=== PATIENT | female | born 1940 | race African-American/Black ===

== ENCOUNTER 2017-04-13 11:17 | Inpatient (IN) | payer MEDICARE, MEDICAID ==
[~2017-04-13] VITALS: Ht 167.6 cm; Wt 77.1 kg
[~2017-04-13 11:17] MED LIST: AMLODIPINE BESY10 MG ORAL; ASPIRIN81 MG ORAL; ATORVASTATIN CA40 MG ORAL; CATAPRES0.1 MG ORAL; COLACE250 MG ORAL; CRANBERRY500 MG PO; DITROPAN10 MG ORAL; FIBER STAT PO; FORTAMET500 MG PO; HYDROCHLOROTH12.5 M2 ORAL; HYDROCHLOROTHIA25 MG ORAL; HYDROCODON-ACE1 EAC4; IBUPROFEN600 MG ORAL; KLONOPIN0.5 MG ORAL; LACTULOSE10 GM/153 PO; LEVEMIR100 UNIT/1 SUBQ; LEXAPRO5 MG/5 ML ORAL; LISINOPRIL20 MG ORAL; LITHIUM CARBON300 M3 PO; MILK OF MA400 MG/51 ORAL; MIRALAX17 G2 ORAL; NITROFURANTOIN100 M2 ORAL; NOVOLOG100 UNIT/3 SUBQ; NOVOLOG100 UNIT/5; PERCOCET 5-3251 EACH ORAL; RISPERDAL2 MG ORAL; SUPER GINSENG1 EACH PO; TYLENOL650 MG/20. ORAL; ULTRAM50 MG ORAL; VITAMIN C500 M1 ORAL; VITAMIN D1000 UNI1 ORAL; [UNRECOGNIZED DRUG - OTHER] MISC
[2017-04-13] MEDS ORDERED: LORAZEPAM2 MG/1 M4 ORAL (11:28)
[2017-04-13 11:30] VITALS: BP 127/62
[2017-04-13] MEDS ORDERED: DUONEB 0.5-3(2.53 ML HHN (11:40)
[2017-04-13] MEDS ORDERED: DULCOLAX10 MG RC ×2 (11:40→16:12)
[2017-04-13] MEDS ORDERED: CLONIDINE0.1 MG GT (11:40)
[2017-04-13] MEDS ORDERED: LACTULOSE10 GM/153 PO (11:40)
[2017-04-13] MEDS ORDERED: FLEET ENEMA133 M1 RC (11:40)
[2017-04-13] MEDS ORDERED: CRANBERRY500 M4 PO (11:40)
[2017-04-13 12:16] LABS: BASOPHILS % (AUTO) 1.4 % (0.0-2.0); EOSINOPHILS % (AUTO) 2.6 % (0.0-3.0); LYMPHOCYTES % (AUTO) 25.5 % (20.0-45.0); MEAN CORPUSCULAR HEMOGLOBIN 24.9 PG (27.0-31.0); MEAN CORPUSCULAR HGB CONC 30.1 G/DL (32.0-36.0); MEAN CORPUSCULAR VOLUME 83 FL (80-99); MEAN PLATELET VOLUME 7.2 FL (6.5-10.1); MONOCYTES % (AUTO) 8.6 % (1.0-10.0); NEUTROPHILS % (AUTO) 61.9 % (45.0-75.0); PLATELET COUNT 232 K/UL (150-450); RED BLOOD COUNT 4.95 M/UL (4.20-5.40); RED CELL DISTRIBUTION WIDTH 14.9 % (11.6-14.8); WHITE BLOOD COUNT 6.9 K/UL (4.8-10.8)
[2017-04-13 12:22] LABS: INR 0.9 (0.9-1.1); PROTHROMBIN TIME 9.3 SEC (9.30-11.50)
[2017-04-13] MEDS ORDERED: Enoxaparin 80mg Inj SUBQ ONE (13:30)
[2017-04-13 14:11] VITALS: BP 156/66
[2017-04-13 14:37] LABS: TROPONIN I < 0.30 ng/mL (<=0.30)
[2017-04-13 14:42] LABS: ALANINE AMINOTRANSFERASE 15 U/L (3-33); ANION GAP 12 (5-15); ASPARTATE AMINO TRANSFERASE 14 U/L (5-40); CALCIUM 9.6 mg/dL (8.6-10.2); CARBON DIOXIDE 24 mEQ/L (20-30); CHLORIDE 98 mEQ/L (98-107); CREATININE 1.2 mg/dL (0.5-0.9); HEMOLYSIS 12; POTASSIUM 5.5 mEQ/L (3.4-4.9); SODIUM 134 mEQ/L (135-145)
[2017-04-13 14:52] LABS: CKMB 2.2 ng/mL (< 3.8)
--- NOTE | 2017-04-13 14:58 | Emergency Room Report ---
History of Present Illness General Chief Complaint: Abnormal Labs Source: Patient Present Illness HPI 68-year-old female presents ED complaining of left leg pain. Patient is coming from [facility]. Notes pain for the last 2 days with swelling of the left leg. Patient had ultrasound done yesterday which showed DVT. Patient is here for further evaluation. Patient notes pain, 5/10, sharp, nonradiating to the left leg. Denies chest pain or shortness of breath. Denies fevers or chills. No other aggravating relieving factors. Denies any other associated symptoms Allergies: Coded Allergies: PENICILLINS (Verified Allergy, Intermediate, Itching, 06/25/12) PROPOXYPHENE HCL (Verified Allergy, Intermediate, Itching, 06/25/12) TETRACYCLINE (Verified Allergy, Intermediate, Itching, 06/25/12) PROPOXYPHENE (Verified Allergy, Unknown, 06/25/12) HYDROCODONE (Verified Adverse Reaction, Intermediate, GI UPSET, 05/05/16) SULFA (SULFONAMIDE ANTIBIOTICS) (Verified Adverse Reaction, Intermediate, GI UPSET, 05/05/16) Patient History Past Medical History: HTN, CVA/TIA, dementia, psych hx Social History: Denies: alcohol use, drug use, smoking Now: No Immunizations: UTD Reviewed Nursing Documentation: PMH: Agreed, PSxH: Agreed Nursing Documentation-PMH Hx Cardiac Problems: Yes Hx Hypertension: Yes Hx Diabetes: Yes Hx Cancer: No Hx Gastrointestinal Problems: No History Of Psychiatric Problem: Yes - BIPOLAR Hx Neurological Problems: Yes Hx Cerebrovascular Accident: Yes Hx Dementia: Yes 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 Hx Memory Loss: Yes - short term Hx Speech Problem: No Hx Dysphasia: Yes Hx Weakness: Yes Review of Systems All Other Systems: negative except mentioned in HPI Physical Exam Vital Signs Date Time Temp Pulse Resp B/P Pulse Ox O2 Delivery O2 Flow Rate FiO2 04/13/17 11:15 98.1 76 20 127/62 98 Room Air Sp02 EP Interpretation: reviewed, normal General Appearance: no apparent distress, alert, GCS 15, non-toxic Head: normocephalic, atraumatic Eyes: bilateral eye PERRL, bilateral eye normal inspection ENT: hearing grossly normal, normal pharynx, no angioedema, normal voice Neck: full range of motion, supple/symm/no masses Respiratory: chest non-tender, lungs clear, normal breath sounds, speaking full sentences Cardiovascular #1: regular rate, rhythm, no edema Cardiovascular #2: 2+ carotid (R), 2+ carotid (L), 2+ radial (R), 2+ radial (L) , 2+ dorsalis pedis (R), 2+ dorsalis pedis (L) Gastrointestinal: normal bowel sounds, non tender, soft, non-distended, no guarding, no rebound Rectal: deferred Genitourinary: normal inspection, no CVA tenderness Musculoskeletal: back normal, gait/station normal, normal range of motion, non- tender, calf tenderness - left Neurologic: alert, oriented x3, responsive, motor strength/tone normal, sensory intact, speech normal Psychiatric: judgement/insight normal, memory normal, mood/affect normal, no suicidal/homicidal ideation Reflexes: 3+ bicep (R), 3+ bicep (L), 3+ tricep (R), 3+ tricep (L), 3+ knee (R) , 3+ knee (L) Skin: normal color, no rash, warm/dry, well hydrated Lymphatic: no adenopathy Medical Decision Making Diagnostic Impression: Primary Impression: DVT (deep venous thrombosis) Qualified Codes: I82.492 - Acute embolism and thrombosis of other specified deep vein of left lower extremity Additional Impression: Hyperkalemia, diminished renal excretion ER Course Hospital Course 76-year-old female presents ED with left leg pain and swelling. Differential diagnoses include: DVT, cellulitis, contusion, abscess Clinical course Patient placed on stretcher after initial history and physical I ordered labs, DVT ultrasound. Labs reviewed- K 5.5, Cr 1.2, hemoglobin/hematocrit stable, trop negative Ultrasound shows LLE DVT EKG- NSR, no acute changes interpreted by me given kayexlate. Patient given Lovenox in ED. patient admitted to Dr Balaji Lopez. I feel this is a highly complex case requiring extensive working including EKG/Rhythm strip, Xray/CT/US, Blood/urine lab work, repeat exams while in ED, and administration of strong opiates/narcotics for pain control, admission to hospital or close patient follow up. Diagnosis - DVT, hyperkalemia, patient admitted to floor in serious conditon Labs Test 04/13/17 11:56 04/13/17 13:43 White Blood Count 6.9 K/UL (4.8-10.8) Red Blood Count 4.95 M/UL (4.20-5.40) Hemoglobin 12.3 G/DL (12.0-16.0) Hematocrit 40.9 % (37.0-47.0) Mean Corpuscular Volume 83 FL (80-99) Mean Corpuscular Hemoglobin 24.9 PG (27.0-31.0) Mean Corpuscular Hemoglobin Concent 30.1 G/DL (32.0-36.0) Red Cell Distribution Width 14.9 % (11.6-14.8) Platelet Count 232 K/UL (150-450) Mean Platelet Volume 7.2 FL (6.5-10.1) Neutrophils (%) (Auto) 61.9 % (45.0-75.0) Lymphocytes (%) (Auto) 25.5 % (20.0-45.0) Monocytes (%) (Auto) 8.6 % (1.0-10.0) Eosinophils (%) (Auto) 2.6 % (0.0-3.0) Basophils (%) (Auto) 1.4 % (0.0-2.0) Prothrombin Time 9.3 SEC (9.30-11.50) Prothromb Time International Ratio 0.9 (0.9-1.1) Activated Partial Thromboplast Time 22 SEC (23-33) Sodium Level 134 mEQ/L (135-145) Potassium Level 5.5 mEQ/L (3.4-4.9) Chloride Level 98 mEQ/L (98-107) Carbon Dioxide Level 24 mEQ/L (20-30) Anion Gap 12 (5-15) Blood Urea Nitrogen 18 mg/dL (7-23) Creatinine 1.2 mg/dL (0.5-0.9) Estimat Glomerular Filtration Rate mL/min (>60) Glucose Level 73 mg/dL (74-106) Calcium Level 9.6 mg/dL (8.6-10.2) Total Bilirubin 0.2 mg/dL (0.0-1.2) Aspartate Amino Transf (AST/SGOT) 14 U/L (5-40) Alanine Aminotransferase (ALT/SGPT) 15 U/L (3-33) Alkaline Phosphatase 108 U/L (35-104) Total Creatine Kinase 154 U/L (26-140) Troponin I < 0.30 ng/mL (<=0.30) Total Protein 8.0 g/dL (6.6-8.7) Albumin 4.0 g/dL (3.5-5.2) Globulin 4.0 g/dL Albumin/Globulin Ratio 1.0 (1.0-2.7) EKG Diagnostic Results Rate: normal Rhythm: NSR ST Segments: no acute changes ASA given to the pt in ED: No Rhythm Strip Diag. Results EP Interpretation: yes Rhythm: NSR, no PVC's, no ectopy Last Vital Signs Date Time Temp Pulse Resp B/P Pulse Ox O2 Delivery O2 Flow Rate FiO2 04/13/17 14:11 98.1 98 18 156/66 98 Room Air Status: improved Disposition: ADMITTED INPATIENT Condition: Serious Referrals: NON PHYSICIAN (PCP) PATRICIA CRONIN M.D. Apr 13, 2017 14:58
[2017-04-13] MEDS ORDERED: Sodium Polystyrene Sulfonate 15gm Powder ORAL ONE (15:15)
[2017-04-13 16:08] VITALS: BP 162/84
[2017-04-13] MEDS ORDERED: ATORVASTATIN CA20 MG ORAL (16:10)
[2017-04-13] MEDS ORDERED: DOCUSATE SODIU100 M2 ORAL (16:12)
[2017-04-13] MEDS ORDERED: RISPERIDONE3 MG ORAL (16:18)
[2017-04-13] MEDS ORDERED: ZINC SULFATE220 M2 ORAL (16:18)
[2017-04-13] MEDS ORDERED: FAMOTIDINE20 MG ORAL (16:18)
[2017-04-13] MEDS ORDERED: TRADJENTA5 MG PO (16:18)
[2017-04-13] MEDS ORDERED: MELATONIN 3 MG1 EACH ORAL (16:18)
[2017-04-13] MEDS ORDERED: PROZAC40 MG ORAL (16:18)
[2017-04-13] MEDS ORDERED: LORazepam 1mg tab ORAL PRN (17:00)
[2017-04-13] MEDS ORDERED: Acetaminophen 650mg/20.3ml ORAL PRN (17:00)
[2017-04-13] MEDS ORDERED: DuoNeb 0.5-3(2.5)mg/3ml neb HHN PRN (17:00)
[2017-04-13] MEDS ORDERED: Fleet's Enema 133ml RECTAL PRN ×2 (17:00→17:26)
[2017-04-13] MEDS: Docusate 100mg cap ORAL SCH (18:00)
[2017-04-13 20:00] VITALS: BP 137/68
[2017-04-13] MEDS ORDERED: Milk of Magnesia 30ml Ud ORAL PRN (21:00)
[2017-04-13] MEDS: Atorvastatin 20mg tab ORAL SCH (21:17)
[2017-04-13] MEDS: NovoLOG Insulin Flexpen SUBQ SCH (21:21)
[2017-04-14] VITALS: BP 125/65
[2017-04-14] MEDS ORDERED: Heparin 25,000u/D5W 500ml (VTE/AF) IV SCH (01:00)
[2017-04-14] MEDS ORDERED: Heparin 5000 units/ml inj IV ONE ×2 (01:00→02:00)
[2017-04-14] MEDS: Heparin 25,000u/D5W 500ml (VTE/AF) IV SCH ×3 (02:01→22:54)
[2017-04-14 04:00] VITALS: BP 123/67
[2017-04-14] MEDS: NovoLOG Insulin Flexpen SUBQ SCH ×4 (06:18→20:32)
[2017-04-14 08:10] VITALS: BP 123/71
[2017-04-14] MEDS: Lisinopril 20mg tab ORAL SCH (09:29)
[2017-04-14] MEDS: Ascorbic Acid 500mg tab ORAL SCH (09:29)
[2017-04-14] MEDS: metFORMIN 500mg tab ORAL SCH ×2 (09:29→17:04)
[2017-04-14] MEDS: Aspirin Baby 81mg ORAL SCH (09:29)
[2017-04-14] MEDS: Lactulose 20gm/30ml UDC ORAL SCH (09:29)
[2017-04-14] MEDS: Docusate 100mg cap ORAL SCH ×2 (09:29→17:04)
[2017-04-14] MEDS: Zinc Sulfate 220mg cap ORAL SCH (09:29)
[2017-04-14 11:55] VITALS: BP 125/60
--- NOTE | 2017-04-14 14:31 | History and Physical Report ---
DATE OF ADMISSION: 04/13/2017 REASON FOR ADMISSION: Acute DVT. HISTORY OF PRESENT ILLNESS: This is a 76-year-old female who resides at a retirement facility. She is debilitated as a result of a prior stroke. She noted pain and swelling of her left leg for several days. She was brought to the emergency room where a venous duplex scan confirmed an acute DVT. The patient denies any history of trauma. She at best mobilizes minimally from bed to wheelchair. She does not walk. PAST MEDICAL HISTORY: Hypertension, cerebrovascular accident, bipolar disorder, type 2 diabetes mellitus, and history of MRSA of the sputum. MEDICATIONS: Prior to admission, reviewed and reconciled. ALLERGIES: Penicillin, tetracycline, sulfa, propoxyphene, and hydrocodone. SOCIAL HISTORY: Negative for smoking, alcohol, or substance abuse. FAMILY HISTORY: Noncontributory. REVIEW OF SYSTEMS: No fevers or chills. No prior history of DVT. No history of bleeding diathesis or hypercoagulable state. She has had a prior stroke. She does have hypertension. She had an echocardiogram last year that revealed normal ejection fraction. There is no history of asthma. Her diabetes is managed with oral therapy. There is no known history of thyroid disorder. She denies any known history of melena, bright red blood per rectum, or GI bleeding. She does have chronic kidney disease. PHYSICAL EXAMINATION: GENERAL: A well developed, well nourished, in no distress. VITAL SIGNS: Blood pressure 127/62, pulse 76, respirations 20, and temperature afebrile. HEENT: Conjunctivae pink. Sclerae anicteric. Oropharynx clear. Mucous membranes moist. NECK: Supple. Jugular venous pressure normal. Carotid upstrokes without delay. BREAST: Breast exam performed. No signs of masses or adenopathy. LUNGS: Clear. CARDIAC: Regular rhythm and rate. Normal S1 and S2 with a fourth heart sound. ABDOMEN: Soft and nontender. EXTREMITIES: Tense tight left calf, painful to touch. Distal pulses palpable. NEUROLOGIC: With left greater than right weakness. LABORATORY AND DIAGNOSTIC DATA: Laboratories reviewed. IMPRESSION: 1. Acute deep venous thrombosis of left lower extremity. 2. Hyperkalemia. 3. Mild hyponatremia. 4. Mild hypovolemia. 5. Dehydration. 6. Hypertensive heart disease. 7. Cerebrovascular disease. 8. Type 2 diabetes mellitus. PLAN: 1. Initiate full anticoagulation with IV heparin. 2. Check stool studies. 3. Reassess risk benefit ratio of full anticoagulation versus IVC filter placement long-term. 4. Hydrate with saline. 5. Recheck potassium. 6. Further recommendations will follow. Flako Carpio M.D. DR: Christiana JOB#: [id number] CC:
[2017-04-14 16:58] VITALS: BP 144/74
[2017-04-14 20:00] VITALS: BP 108/71
--- NOTE | 2017-04-14 20:15 | Progress Note ---
DATE: 04/14/2017 INTERNAL MEDICINE PROGRESS NOTE SUBJECTIVE: The patient without distress. Continues to have some pain and tightness in her left calf. No shortness of breath. She remains on heparin drip with the PTT twice in control as a goal. No signs of bleeding noted. Stool occult blood test is pending. OBJECTIVE: VITAL SIGNS: Blood pressure 125/60, pulse 80, respiration 16, afebrile. HEENT: Oropharynx clear. NECK: Supple. LUNGS: Clear. CARDIAC: Regular rhythm and rate. Normal S1, S2 with a fourth heart sound. ABDOMEN: Soft, nontender. EXTREMITIES: With 1 to 2+ edema on the left and tightness of the calf. IMPRESSION: 1. Acute deep venous thrombosis at the left lower extremity and mobility due to cerebrovascular disease. 2. Hypertensive heart disease. 3. Hyponatremia. 4. Hypovolemia. 5. Hyperkalemia. 6. Type 2 diabetes mellitus. PLAN: Continue full anticoagulation. Await stool occult blood test. Continue isotonic IV fluids. Recheck chemistry panel. We will initiate oral anticoagulation once stool studies available. Flako Carpio M.D. DR: MAYI JOB#: [id number] CC:
[2017-04-14] MEDS: Atorvastatin 20mg tab ORAL SCH (20:52)
[2017-04-15] VITALS (7 sets, daily range): BP systolic 125–154; BP diastolic 44–76
[2017-04-15] MEDS: NovoLOG Insulin Flexpen SUBQ SCH ×4 (06:41→20:38)
[2017-04-15 07:31] LABS: BASOPHILS % (AUTO) 0.6 % (0.0-2.0); EOSINOPHILS % (AUTO) 5.2 % (0.0-3.0); LYMPHOCYTES % (AUTO) 31.6 % (20.0-45.0); MEAN CORPUSCULAR HEMOGLOBIN 25.4 PG (27.0-31.0); MEAN CORPUSCULAR HGB CONC 30.9 G/DL (32.0-36.0); MEAN CORPUSCULAR VOLUME 82 FL (80-99); MEAN PLATELET VOLUME 7.6 FL (6.5-10.1); NEUTROPHILS % (AUTO) 52.6 % (45.0-75.0); PLATELET COUNT 204 K/UL (150-450); RED BLOOD COUNT 4.08 M/UL (4.20-5.40); RED CELL DISTRIBUTION WIDTH 15.2 % (11.6-14.8); WHITE BLOOD COUNT 8.1 K/UL (4.8-10.8)
[2017-04-15 08:33] LABS: ALANINE AMINOTRANSFERASE 12 U/L (3-33); ALBUMIN/GLOBULIN RATIO 0.9 (1.0-2.7); ANION GAP 11 (5-15); ASPARTATE AMINO TRANSFERASE 12 U/L (5-40); CALCIUM 8.7 mg/dL (8.6-10.2); CARBON DIOXIDE 24 mEQ/L (20-30); CHLORIDE 104 mEQ/L (98-107); CREATININE 1.1 mg/dL (0.5-0.9); HEMOLYSIS 4; POTASSIUM 4.6 mEQ/L (3.4-4.9); SODIUM 139 mEQ/L (135-145); TOTAL PROTEIN 6.7 g/dL (6.6-8.7)
[2017-04-15] MEDS: Aspirin Baby 81mg ORAL SCH (09:16)
[2017-04-15] MEDS: Lisinopril 20mg tab ORAL SCH (09:17)
[2017-04-15] MEDS: Lactulose 20gm/30ml UDC ORAL SCH (09:17)
[2017-04-15] MEDS: Docusate 100mg cap ORAL SCH ×2 (09:17→17:10)
[2017-04-15] MEDS: metFORMIN 500mg tab ORAL SCH ×2 (09:17→17:10)
[2017-04-15] MEDS: Zinc Sulfate 220mg cap ORAL SCH (09:20)
[2017-04-15] MEDS: Ascorbic Acid 500mg tab ORAL SCH (09:20)
[2017-04-15] MEDS: Atorvastatin 20mg tab ORAL SCH (20:23)
[2017-04-15] MEDS: Heparin 25,000u/D5W 500ml (VTE/AF) IV SCH (20:26)
--- NOTE | 2017-04-15 22:45 | Progress Note ---
DATE: 04/15/2017 INTERNAL MEDICINE PROGRESS NOTE SUBJECTIVE: The patient has no nausea or vomiting. No abdominal pain. Still feels kind of achy in her left calf. Stool occult blood is positive. OBJECTIVE: VITAL SIGNS: Blood pressure 152/59, pulse 78, respiratory rate 20, and afebrile. NECK: Supple. LUNGS: Clear. CARDIAC: Regular. Normal S1 and S2. ABDOMEN: Soft. EXTREMITIES: Left lower extremity tender calf with edema. LABORATORY DATA: White count 8.1 and hemoglobin down to 10.4. Potassium 4.6, BUN 17 and creatinine 1.1. Albumin is 3.3. IMPRESSION: 1. Acute DVT of the left lower extremity. 2. Hemoccult-positive stools. 3. Anemia. 4. Mild protein-calorie malnutrition. 5. Hypertensive heart disease. 6. Cerebrovascular disease with prior cerebrovascular accident. PLAN: 1. Continue intravenous heparin. 2. GI evaluation for possible colonoscopy and endoscopy. 3. Hold warfarin. 4. Rivaroxaban pending above evaluation. 5. Monitor hemoglobin. Flako Carpio M.D. DR: ADARSH JOB#: [id number] CC:
[2017-04-16] VITALS: BP 133/65
[2017-04-16 04:00] VITALS: BP 166/74
[2017-04-16] MEDS: NovoLOG Insulin Flexpen SUBQ SCH ×4 (05:47→21:08)
[2017-04-16 08:02] VITALS: BP 132/64
[2017-04-16] MEDS: Lactulose 20gm/30ml UDC ORAL SCH ×2 (08:46→09:00)
[2017-04-16] MEDS: Aspirin Baby 81mg ORAL SCH (08:46)
[2017-04-16] MEDS: Docusate 100mg cap ORAL SCH ×3 (08:46→18:00)
[2017-04-16] MEDS: metFORMIN 500mg tab ORAL SCH ×2 (08:46→18:19)
[2017-04-16] MEDS: Ascorbic Acid 500mg tab ORAL SCH (08:47)
[2017-04-16] MEDS: Lisinopril 20mg tab ORAL SCH (08:48)
[2017-04-16] MEDS: Zinc Sulfate 220mg cap ORAL SCH (08:51)
[2017-04-16] MEDS ORDERED: Tubing IV Secondary IV ONE (10:35)
[2017-04-16] MEDS ORDERED: NS 275ml ONE (10:35)
[2017-04-16 11:40] VITALS: BP 142/62
--- NOTE | 2017-04-16 15:31 | GI Initial Consult Note ---
Fernandez,Venecia Edgardo N.PChica 04/16/17 1531: History of Present Illness General Date patient seen: Apr 16, 2017 Time patient seen: 11:00 Reason for Hospitalization: Abnormal Labs Referring physician: JERONIMO MEJÍA Reason for Consultation: POSITIVE OCCULT BLOOD Present Illness HPI 68-year-old female presents ED complaining of left leg pain. [facility] Notes pain for the last 2 days with swelling of the left leg. Patient had ultrasound done yesterday which showed DVT. Patient is here for further evaluation. Patient notes pain, 5/10, sharp, nonradiating to the left leg. Denies chest pain or shortness of breath. Denies fevers or chills. No other aggravating relieving factors. Denies any other associated symptoms. GI Consult. HPI as noted above. GI consulted for positive occult blood. Pt seen on floor, awake A&Ox4 NAD with no active s/sx of N/V/D. EGD/colonoscopy explained to the patient and at this time, she refuses to have both done. She presents today with positive OB, however H&H appears stable and there is no urgent need for endoscopy. She denies any general GI complaints at this time. She is currently on Heparin gtt for DVT. Home Meds Active Scripts [Amikacin RX monitoring] 1 EA MIS No Conflict Check, 1 EA MIS DAILY Y for PER PHARMACY for 5 Days Prov:[id number] 02/20/16 Reported Medications Zinc Sulfate (ZINC SULFATE) 220 Mg Tablet, 220 MG ORAL DAILY, #30 TAB 0 Refills 04/13/17 Linagliptin (TRADJENTA) 5 Mg Tablet, 5 MG PO DAILY, TAB 04/13/17 Risperidone (RISPERIDONE) 3 Mg Tablet, 3 MG ORAL HS, TAB 0 Refills 04/13/17 Fluoxetine Hcl* (PROZAC*) 40 Mg Capsule, 40 MG ORAL DAILY, CAP 04/13/17 Melatonin (MELATONIN 3 MG TABLET) 1 Each Tablet, 2 TAB ORAL BEDTIME Y for Insomnia, TAB 04/13/17 Famotidine (FAMOTIDINE) 20 Mg Tablet, 20 MG ORAL DAILY, #30 TAB 0 Refills 04/13/17 Bisacodyl (DULCOLAX) 10 Mg Supp.rect, 10 MG RC DAILY for Constipation, SUPP 04/13/17 Docusate Sodium (DOCUSATE SODIUM) 100 Mg Tablet, 100 MG ORAL TWICE A DAY, #60 TAB 0 Refills 04/13/17 Atorvastatin Calcium* (ATORVASTATIN CALCIUM*) 20 Mg Tablet, 20 MG ORAL BEDTIME, TAB 04/13/17 Lactulose (LACTULOSE) 10 Gm/15 Ml Solution, 20 GM PO 04/13/17 Na Phos,M-B/Na Phos,Di-Ba (Fleet Enema) 133 Ml Enema, 133 ML RC, EA 04/13/17 Ipratropium/Albuterol Sulfate (DuoNeb 0.5-3(2.5)mg/3ml) 3 Ml Ampul.neb, 3 ML HHN , EA 04/13/17 Bisacodyl (DULCOLAX) 10 Mg Supp.rect, 10 MG RC, SUPP 04/13/17 Cranberry Extract (Cranberry) 500 Mg Tablet, 850 MG PO, TAB 04/13/17 Clonidine HCl (Clonidine HCl) 0.1 Mg Tablet, 0.1 MG GT, TAB 04/13/17 Lorazepam (LORAZEPAM) 2 Mg/1 Ml Oral.conc, 1 MG ORAL THREE TIMES A DAY, ML 04/13/17 Nitrofurantoin Monohyd/M-Cryst* (MACROBID 100 MG*) 100 Mg Capsule, 100 MG ORAL EVERY 12 HOURS for 7 Days, CAP 05/08/16 Acetaminophen (Acetaminophen) 650 Mg/20.3 Ml Soln, 650 MG ORAL Q6H Y for Prn Headache/Temp > 101, ML 0 Refills 02/16/16 Tramadol Hcl (ULTRAM*) 50 Mg Tablet, 50 MG ORAL Q6H, #30 TAB 0 Refills 02/16/16 Magnesium Hydroxide* (MILK OF MAGNESIA*) 400 Mg/5 Ml Oral.susp, 30 ML ORAL DAILY , ML 02/16/16 Metformin Hcl (FORTAMET) 500 Mg Tab.er.24, 500 MG PO, TAB 02/16/16 [place] Carbonate (LITHIUM CARBONATE) 300 Mg Tablet.er, 300 MG PO, TAB 02/16/16 Lisinopril (LISINOPRIL*) 20 Mg Tablet, 40 MG ORAL DAILY, TAB 02/16/16 Escitalopram Oxalate (LEXAPRO) 5 Mg/5 Ml Solution, 10 MG ORAL DAILY, ML 02/16/16 Lactulose (LACTULOSE) 10 Gm/15 Ml Solution, 10 GM PO 02/16/16 Hydrochlorothiazide* (HYDROCHLOROTHIAZIDE*) 12.5 Mg Capsule, 12.5 MG ORAL DAILY , CAP 02/16/16 Aspirin* (ASPIRIN*) 81 Mg Tab.chew, 81 MG ORAL DAILY, TAB 02/16/16 Amlodipine Besylate* (AMLODIPINE BESYLATE*) 10 Mg Tablet, 10 MG ORAL DAILY, TAB 02/16/16 Lisinopril (LISINOPRIL*) 20 Mg Tablet, 20 MG ORAL Q12HR, TAB 10/01/13 Cholecalciferol (Vitamin D3)* (VITAMIN D*) 1,000 Unit Tablet, 2000 UNITS ORAL DAILY, #30 TAB 0 Refills 10/01/13 Oxybutynin Chloride (Oxybutynin Chloride) 10 Mg Tab, 5 MG ORAL BID, TAB 10/01/13 Multivitamin W-Minerals/Gin (SUPER GINSENG MULTIVIT CAP) 1 Each Capsule, 1 EACH PO DAILY 10/01/13 Ascorbic Acid* (VITAMIN C*) 500 Mg Tablet, 500 MG ORAL DAILY, #60 TAB 0 Refills 10/01/13 Insulin Detemir (LEVEMIR) 100 Unit/1 Ml Vial, 36 SUBQ BEDTIME, VIAL 10/01/13 Discontinued Reported Medications Atorvastatin Calcium* (ATORVASTATIN CALCIUM*) 40 Mg Tablet, 40 MG ORAL BEDTIME, TAB 02/16/16 Docusate Sodium (Docusate Sodium) 250 Mg Cap, 250 MG ORAL DAILY, CAP 10/01/13 Med list reviewed/reconciled: Yes Allergies: Coded Allergies: PENICILLINS (Verified Allergy, Intermediate, Itching, 06/25/12) PROPOXYPHENE HCL (Verified Allergy, Intermediate, Itching, 06/25/12) TETRACYCLINE (Verified Allergy, Intermediate, Itching, 06/25/12) PROPOXYPHENE (Verified Allergy, Unknown, 06/25/12) HYDROCODONE (Verified Adverse Reaction, Intermediate, GI UPSET, 05/05/16) SULFA (SULFONAMIDE ANTIBIOTICS) (Verified Adverse Reaction, Intermediate, GI UPSET, 05/05/16) Patient History History Provided By: Patient, Medical Record PMH Narrative Past Medical History: HTN, CVA/TIA, dementia, psych hx Social History: Denies: alcohol use, drug use, smoking Now: No Immunizations: UTD Reviewed Nursing Documentation: PMH: Agreed, PSxH: Agreed Nursing Documentation-PMH Hx Cardiac Problems: Yes Hx Hypertension: Yes Hx Diabetes: Yes Hx Cancer: No Hx Gastrointestinal Problems: No History Of Psychiatric Problem: Yes - BIPOLAR Hx Neurological Problems: Yes Hx Cerebrovascular Accident: Yes Hx Dementia: Yes 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 Hx Memory Loss: Yes - short term Hx Speech Problem: No Hx Dysphasia: Yes Hx Weakness: Yes Social History: Denies: alcohol use, drug use, other, smoking Review of Systems All Other Systems: negative except mentioned in HPI Physical Exam Vital Signs Date Time Temp Pulse Resp B/P Pulse Ox O2 Delivery O2 Flow Rate FiO2 04/13/17 11:15 98.1 76 20 127/62 98 Room Air 04/13/17 16:08 2.0 Sp02 EP Interpretation: reviewed Labs Laboratory Tests Test 04/16/17 04:20 Activated Partial Thromboplast Time 79 SEC (23-33) H General Appearance: well appearing, no apparent distress, alert Head: normocephalic EENT: PERRL/EOMI, normal ENT inspection Neck: full range of motion, supple Respiratory: lungs clear, no respiratory distress Cardiovascular: normal rate Gastrointestinal: normal inspection, non tender, soft, normal bowel sounds Rectal: normal exam Genitourinary: normal inspection Musculoskeletal: back normal Neurologic: normal inspection, alert, oriented x3, responsive Psychiatric: normal inspection, judgement/insight normal, memory normal Skin: normal inspection, normal color, no rash, warm/dry Lymphatic: normal inspection, no adenopathy Current Medications Current Medications Medications (Trade) Dose Ordered Sig/Jackie Route PRN Reason Start Time Stop Time Status Last Admin Dose Admin Acetaminophen (Tylenol) 650 mg Q6H PRN ORAL Prn Headache/Temp > 101 04/13/17 17:00 05/13/17 16:59 04/15/17 20:24 Albuterol/ Ipratropium (DuoNeb 0.5-3(2.5)mg/3ml) 3 ml Q4H PRN HHN Shortness of Breath 04/13/17 17:00 04/18/17 16:59 Amlodipine Besylate (Norvasc) 10 mg DAILY ORAL 04/14/17 09:00 05/14/17 08:59 04/16/17 08:47 Ascorbic Acid (Vitamin C) 500 mg DAILY ORAL 04/14/17 09:00 05/14/17 08:59 04/16/17 08:47 Aspirin (ASA) 81 mg DAILY ORAL 04/14/17 09:00 05/14/17 08:59 04/16/17 08:46 Atorvastatin Calcium (Lipitor) 20 mg BEDTIME ORAL 04/13/17 21:00 05/13/17 20:59 04/15/17 20:23 Bisacodyl (Dulcolax) 10 mg DAILYPRN PRN RECTAL Constipation 04/13/17 17:00 05/13/17 16:59 Clonidine HCl (Catapres) 0.1 mg Q6H PRN ORAL SBP>160 OR DBP>90 04/13/17 18:00 05/13/17 17:59 04/16/17 05:45 Dextrose STAT PRN IV Hypoglycemia 04/13/17 19:15 05/13/17 19:14 Docusate Sodium (Colace) 100 mg TWICE A DAY ORAL 04/13/17 18:00 05/13/17 17:59 04/16/17 08:56 Fluoxetine HCl (PROzac) 40 mg DAILY ORAL 04/14/17 09:00 05/14/17 08:59 04/16/17 08:51 Heparin Sodium/ Dextrose (Heparin) 500 ml @ 23.133 mls/ hr Q24H IV 04/14/17 02:00 05/14/17 01:59 04/15/17 20:26 Insulin Aspart (NovoLOG) BEFORE MEALS AND HS SUBQ 04/13/17 21:00 05/13/17 20:59 04/16/17 12:06 Lactulose (Cephulac) 20 gm DAILY ORAL 04/14/17 09:00 05/14/17 08:59 04/16/17 09:00 Lisinopril (Prinivil) 20 mg DAILY ORAL 04/14/17 09:00 05/14/17 08:59 04/16/17 08:48 Lorazepam (Ativan) 1 mg Q6H PRN ORAL For Anxiety 04/13/17 17:00 04/20/17 16:59 Magnesium Hydroxide (Mom) 30 ml HSPRN PRN ORAL Constipation 04/13/17 21:00 05/13/17 20:59 Metformin HCl (Glucophage) 500 mg BID ORAL 04/14/17 09:00 05/14/17 08:59 04/16/17 08:46 Multivitamins (Multivitamins) 1 tab DAILY ORAL 04/14/17 09:00 05/14/17 08:59 04/16/17 08:47 Ondansetron HCl (Zofran) 4 mg Q6H PRN IVP Nausea & Vomiting 04/14/17 20:45 05/14/17 20:44 04/14/17 20:52 Risperidone (RisperDAL) 3 mg BEDTIME ORAL 04/13/17 21:00 05/13/17 20:59 04/15/17 20:23 Sodium Chloride (Sodium Chloride 1000ml bag) 1,000 ml @ 100 mls/hr Q10H IV 04/13/17 17:45 05/13/17 17:44 04/16/17 05:46 Sodium Phosphate 133 ml 133 ml DAILYPRN PRN RECTAL Constipation 04/13/17 17:26 05/13/17 16:59 Zinc Sulfate (Zinc Sulfate) 220 mg DAILY ORAL 04/14/17 09:00 05/14/17 08:59 04/16/17 08:51 GI: Plan Problems: (1) Occult blood in stools (2) DVT (deep venous thrombosis) (3) Dehydration Plan EGD/colonoscopy refused by patient at this time, can be done as outpatient monitor H&H, transfuse prn H2B GI prophylaxis ordered iron panel electrolyte correction bowel regime >> lactulose fu labs Discussed with Dr. Ambrose. Thank you for referring this patient, we will follow. DANIELE AMBROSE 04/17/17 1226: History of Present Illness General Reason for Hospitalization: Abnormal Labs Present Illness Home Meds Active Scripts [Amikacin RX monitoring] 1 EA MISC No Conflict Check, 1 EA MISC DAILY Y for PER PHARMACY for 5 Days Prov:ROSA WILSON 02/20/16 Reported Medications Zinc Sulfate (ZINC SULFATE) 220 Mg Tablet, 220 MG ORAL DAILY, #30 TAB 0 Refills 04/13/17 Linagliptin (TRADJENTA) 5 Mg Tablet, 5 MG PO DAILY, TAB 04/13/17 Risperidone (RISPERIDONE) 3 Mg Tablet, 3 MG ORAL HS, TAB 0 Refills 04/13/17 Fluoxetine Hcl* (PROZAC*) 40 Mg Capsule, 40 MG ORAL DAILY, CAP 04/13/17 Melatonin (MELATONIN 3 MG TABLET) 1 Each Tablet, 2 TAB ORAL BEDTIME Y for Insomnia, TAB 04/13/17 Famotidine (FAMOTIDINE) 20 Mg Tablet, 20 MG ORAL DAILY, #30 TAB 0 Refills 04/13/17 Bisacodyl (DULCOLAX) 10 Mg Supp.rect, 10 MG RC DAILY for Constipation, SUPP 04/13/17 Docusate Sodium (DOCUSATE SODIUM) 100 Mg Tablet, 100 MG ORAL TWICE A DAY, #60 TAB 0 Refills 04/13/17 Atorvastatin Calcium* (ATORVASTATIN CALCIUM*) 20 Mg Tablet, 20 MG ORAL BEDTIME, TAB 04/13/17 Lactulose (LACTULOSE) 10 Gm/15 Ml Solution, 20 GM PO 04/13/17 Na Phos,M-B/Na Phos,Di-Ba (Fleet Enema) 133 Ml Enema, 133 ML RC, EA 04/13/17 Ipratropium/Albuterol Sulfate (DuoNeb 0.5-3(2.5)mg/3ml) 3 Ml Ampul.neb, 3 ML HHN , EA 04/13/17 Bisacodyl (DULCOLAX) 10 Mg Supp.rect, 10 MG RC, SUPP 04/13/17 Cranberry Extract (Cranberry) 500 Mg Tablet, 850 MG PO, TAB 04/13/17 Clonidine HCl (Clonidine HCl) 0.1 Mg Tablet, 0.1 MG GT, TAB 04/13/17 Lorazepam (LORAZEPAM) 2 Mg/1 Ml Oral.conc, 1 MG ORAL THREE TIMES A DAY, ML 04/13/17 Nitrofurantoin Monohyd/M-Cryst* (MACROBID 100 MG*) 100 Mg Capsule, 100 MG ORAL EVERY 12 HOURS for 7 Days, CAP 05/08/16 Acetaminophen (Acetaminophen) 650 Mg/20.3 Ml Soln, 650 MG ORAL Q6H Y for Prn Headache/Temp > 101, ML 0 Refills 02/16/16 Tramadol Hcl (ULTRAM*) 50 Mg Tablet, 50 MG ORAL Q6H, #30 TAB 0 Refills 02/16/16 Magnesium Hydroxide* (MILK OF MAGNESIA*) 400 Mg/5 Ml Oral.susp, 30 ML ORAL DAILY , ML 02/16/16 Metformin Hcl (FORTAMET) 500 Mg Tab.er.24, 500 MG PO, TAB 02/16/16 [place] Carbonate (LITHIUM CARBONATE) 300 Mg Tablet.er, 300 MG PO, TAB 02/16/16 Lisinopril (LISINOPRIL*) 20 Mg Tablet, 40 MG ORAL DAILY, TAB 02/16/16 Escitalopram Oxalate (LEXAPRO) 5 Mg/5 Ml Solution, 10 MG ORAL DAILY, ML 02/16/16 Lactulose (LACTULOSE) 10 Gm/15 Ml Solution, 10 GM PO 02/16/16 Hydrochlorothiazide* (HYDROCHLOROTHIAZIDE*) 12.5 Mg Capsule, 12.5 MG ORAL DAILY , CAP 02/16/16 Aspirin* (ASPIRIN*) 81 Mg Tab.chew, 81 MG ORAL DAILY, TAB 02/16/16 Amlodipine Besylate* (AMLODIPINE BESYLATE*) 10 Mg Tablet, 10 MG ORAL DAILY, TAB 02/16/16 Lisinopril (LISINOPRIL*) 20 Mg Tablet, 20 MG ORAL Q12HR, TAB 10/01/13 Cholecalciferol (Vitamin D3)* (VITAMIN D*) 1,000 Unit Tablet, 2000 UNITS ORAL DAILY, #30 TAB 0 Refills 10/01/13 Oxybutynin Chloride (Oxybutynin Chloride) 10 Mg Tab, 5 MG ORAL BID, TAB 10/01/13 Multivitamin W-Minerals/Gin (SUPER GINSENG MULTIVIT CAP) 1 Each Capsule, 1 EACH PO DAILY 10/01/13 Ascorbic Acid* (VITAMIN C*) 500 Mg Tablet, 500 MG ORAL DAILY, #60 TAB 0 Refills 10/01/13 Insulin Detemir (LEVEMIR) 100 Unit/1 Ml Vial, 36 SUBQ BEDTIME, VIAL 10/01/13 Discontinued Reported Medications Atorvastatin Calcium* (ATORVASTATIN CALCIUM*) 40 Mg Tablet, 40 MG ORAL BEDTIME, TAB 02/16/16 Docusate Sodium (Docusate Sodium) 250 Mg Cap, 250 MG ORAL DAILY, CAP 10/01/13 Allergies: Coded Allergies: PENICILLINS (Verified Allergy, Intermediate, Itching, 06/25/12) PROPOXYPHENE HCL (Verified Allergy, Intermediate, Itching, 06/25/12) TETRACYCLINE (Verified Allergy, Intermediate, Itching, 06/25/12) PROPOXYPHENE (Verified Allergy, Unknown, 06/25/12) HYDROCODONE (Verified Adverse Reaction, Intermediate, GI UPSET, 05/05/16) SULFA (SULFONAMIDE ANTIBIOTICS) (Verified Adverse Reaction, Intermediate, GI UPSET, 05/05/16) GI: Plan Plan The patient was seen and examined at bedside and all new and available data was reviewed in the patients chart. I agree with the above findings, impression and plan. (Patient seen earlier today. Signature stamp does not reflect patient encounter time.). -Venecia Tamez MD, N.P. Apr 16, 2017 15:31 DANIELE AMBROSE Apr 17, 2017 12:26
[2017-04-16 16:15] VITALS: BP 142/79
[2017-04-16] MEDS ORDERED: TOBRAMYCIN IV SCH (17:00)
[2017-04-16] MEDS ORDERED: NS IV SCH (17:00)
--- NOTE | 2017-04-16 17:30 | Progress Note ---
DATE: 04/16/2017 CARDIOLOGY AND INTERNAL MEDICINE PROGRESS NOTE SUBJECTIVE: The patient has no new distress. Stool occult blood positive. Discussed with her. She is on IV heparin. She has DVT of the left lower extremity. She will need long-term anticoagulation. She is mostly bedbound due to prior stroke. OBJECTIVE: VITAL SIGNS: Blood pressure is 142/62, pulse rate 59, and respiratory rate 21. Afebrile. NECK: Supple. LUNGS: Clear. CARDIAC: Regular. Normal S1 and S2 with a fourth heart sound. ABDOMEN: Soft and nontender. EXTREMITIES: 1+ edema and tightness of left calf. NEUROLOGIC: Baseline left greater than right weakness. IMPRESSION: 1. Acute deep venous thrombosis. 2. Anemia. 3. Hemoccult-positive stool. 4. Cerebrovascular accident. 5. Hypertension. PLAN: Intravenous heparin. Hold warfarin. Pending completion of gastrointestinal workup. Gastroenterology consult for panendoscopy. Titrate antihypertensive. Flako Carpio M.D. DR: SHAHANA JOB#: [id number] CC:
[2017-04-16] MEDS: Heparin 25,000u/D5W 500ml (VTE/AF) IV SCH (19:34)
[2017-04-16 20:00] VITALS: BP 122/66
[2017-04-16] MEDS: Atorvastatin 20mg tab ORAL SCH (21:06)
[2017-04-17] VITALS: BP 150/67
[2017-04-17 04:00] VITALS: BP 130/64
[2017-04-17 04:48] LABS: BASOPHILS % (AUTO) 0.6 % (0.0-2.0); EOSINOPHILS % (AUTO) 4.4 % (0.0-3.0); MEAN CORPUSCULAR HGB CONC 31.4 G/DL (32.0-36.0); MEAN CORPUSCULAR VOLUME 83 FL (80-99); MEAN PLATELET VOLUME 7.3 FL (6.5-10.1); MONOCYTES % (AUTO) 8.9 % (1.0-10.0); NEUTROPHILS % (AUTO) 64.1 % (45.0-75.0); PLATELET COUNT 204 K/UL (150-450); RED BLOOD COUNT 4.04 M/UL (4.20-5.40); RED CELL DISTRIBUTION WIDTH 15.3 % (11.6-14.8); WHITE BLOOD COUNT 8.8 K/UL (4.8-10.8)
[2017-04-17 05:06] LABS: ANION GAP 9 (5-15); CALCIUM 9.4 mg/dL (8.6-10.2); CARBON DIOXIDE 26 mEQ/L (20-30); CHLORIDE 101 mEQ/L (98-107); CREATININE 1.1 mg/dL (0.5-0.9); HEMOLYSIS 3; MAGNESIUM 1.7 mg/dL (1.7-2.5); POTASSIUM 4.2 mEQ/L (3.4-4.9); SODIUM 136 mEQ/L (135-145)
[2017-04-17] MEDS ORDERED: Heparin 25,000u/D5W 500ml (VTE/AF) IV SCH (05:25)
[2017-04-17] MEDS ORDERED: Heparin 5000 units/ml inj IV ONE (05:30)
[2017-04-17] MEDS: NovoLOG Insulin Flexpen SUBQ SCH ×2 (06:16→11:30)
[2017-04-17 08:00] VITALS: BP 159/71
[2017-04-17] MEDS: Zinc Sulfate 220mg cap ORAL SCH (08:39)
[2017-04-17] MEDS: Lisinopril 20mg tab ORAL SCH (08:39)
[2017-04-17] MEDS: Ascorbic Acid 500mg tab ORAL SCH (08:40)
[2017-04-17] MEDS: Lactulose 20gm/30ml UDC ORAL SCH (08:48)
[2017-04-17] MEDS: Docusate 100mg cap ORAL SCH ×2 (08:50→18:00)
[2017-04-17] MEDS: Aspirin Baby 81mg ORAL SCH (09:01)
[2017-04-17] MEDS: metFORMIN 500mg tab ORAL SCH ×2 (09:02→18:38)
--- NOTE | 2017-04-17 11:18 | GI Progress Note ---
Assessment/Plan Problems: (1) Hypoalbuminemia ICD Codes: E88.09 - Other disorders of plasma-protein metabolism, not elsewhere classified SNOMED: 490369496 (2) Occult blood in stools ICD Codes: R19.5 - Other fecal abnormalities SNOMED: 25967535, 399810784 (3) Dehydration ICD Codes: E86.0 - Dehydration SNOMED: 68318228 Status: stable Status Narrative Discussed with Dr. Ortiz. Assessment/Plan EGD/colonoscopy refused by patient at this time, can be done as outpatient. stable H&H, transfuse prn H2B GI prophylaxis ordered iron panel electrolyte correction bowel regime >> lactulose fu labs Subjective Subjective no GI symptoms swelling in leg has gone down wants to go outside to smoke Objective Last 24 Hour Vital Signs Date Time Temp Pulse Resp B/P Pulse Ox O2 Delivery O2 Flow Rate FiO2 04/17/17 08:40 80 159/71 04/17/17 08:39 159/71 04/17/17 08:00 97.7 80 18 159/71 94 Room Air 04/17/17 07:30 78 18 Room Air 04/17/17 04:00 97.9 65 18 130/64 94 Room Air 04/17/17 00:00 98.0 63 18 150/67 95 Room Air 04/16/17 20:00 98.4 73 18 122/66 93 Room Air 04/16/17 19:57 64 18 Room Air 04/16/17 16:15 97.6 79 21 142/79 97 Room Air 04/16/17 11:40 98.2 59 21 142/62 99 Room Air Intake and Output 04/16/17 04/17/17 19:00 07:00 Intake Total 2654.463 ml 1215.665 ml Balance 2654.463 ml 1215.665 ml Intake Oral 1200 ml IV Total 1454.463 ml 1215.665 ml # Voids 7 1 # Bowel Movements 1 1 Laboratory Tests Test 04/17/17 04:00 White Blood Count 8.8 K/UL (4.8-10.8) Red Blood Count 4.04 M/UL (4.20-5.40) L Hemoglobin 10.5 G/DL (12.0-16.0) L Hematocrit 33.4 % (37.0-47.0) L Mean Corpuscular Volume 83 FL (80-99) Mean Corpuscular Hemoglobin 26.0 PG (27.0-31.0) L Mean Corpuscular Hemoglobin Concent 31.4 G/DL (32.0-36.0) L Red Cell Distribution Width 15.3 % (11.6-14.8) H Platelet Count 204 K/UL (150-450) Mean Platelet Volume 7.3 FL (6.5-10.1) Neutrophils (%) (Auto) 64.1 % (45.0-75.0) Lymphocytes (%) (Auto) 22.0 % (20.0-45.0) Monocytes (%) (Auto) 8.9 % (1.0-10.0) Eosinophils (%) (Auto) 4.4 % (0.0-3.0) H Basophils (%) (Auto) 0.6 % (0.0-2.0) Activated Partial Thromboplast Time 57 SEC (23-33) H Sodium Level 136 mEQ/L (135-145) Potassium Level 4.2 mEQ/L (3.4-4.9) Chloride Level 101 mEQ/L (98-107) Carbon Dioxide Level 26 mEQ/L (20-30) Anion Gap 9 (5-15) Blood Urea Nitrogen 15 mg/dL (7-23) Creatinine 1.1 mg/dL (0.5-0.9) H Estimat Glomerular Filtration Rate mL/min (>60) Glucose Level 125 mg/dL (74-106) H Calcium Level 9.4 mg/dL (8.6-10.2) Phosphorus Level 4.0 mg/dL (2.5-4.8) Magnesium Level 1.7 mg/dL (1.7-2.5) Height (Feet): 5 Height (Inches): 6.00 Weight (Pounds): 170 General Appearance: no apparent distress, alert Cardiovascular: normal rate Respiratory/Chest: normal breath sounds, no respiratory distress Abdominal Exam: normal bowel sounds, non tender, soft Extremities: normal range of motion Venecia Fernandez N.P. Apr 17, 2017 11:18
[2017-04-17 12:21] VITALS: BP 152/71
--- NOTE | 2017-04-17 12:27 | Diagnostic Imaging Report ---
APPROVED REPORT CPT Code: 84867 Present Symptoms Comments: Left leg Swelling LEFT LEG: Venous imaging reveals acute thrombus in the mid-distal superficial femoral vein to popliteal vein. Imaging also reveals chronic thrombus in the common femoral vein. Large collateral vein noted anterior to the superficial femoral artery. Remainder of the deep venous system within normal limits. No evidence of thrombus in the calf veins. Greater saphenous vein also within normal limits. ER Doctor was notified of abnormal results at 1300 hours.
[2017-04-17] MEDS ORDERED: Xarelto 15mg tab ORAL SCH (13:00)
[2017-04-17] MEDS ORDERED: Xarelto 10mg tab ORAL SCH (13:00)
[2017-04-17] MEDS ORDERED: LORAZEPAM1 MG ORAL (13:12)
[2017-04-17] MEDS ORDERED: METFORMIN HCL500 M5 PO (13:13)
[2017-04-17] MEDS ORDERED: ZOFRAN4 M1 ORAL (13:16)
[2017-04-17] MEDS ORDERED: RANITIDINE HCL150 MG ORAL (13:17)
[2017-04-17] MEDS ORDERED: XARELTO20 MG ORAL (13:18)
[2017-04-17 16:46] VITALS: BP 156/76
[2017-04-18] MEDS ORDERED: Xarelto 10mg tab ORAL SCH (16:30)
--- NOTE | 2017-04-20 04:00 | Discharge Summary ---
DATE OF ADMISSION: 04/13/2017 DATE OF DISCHARGE: 04/17/2017 DISPOSITION: [facility] facility. CONDITION: Stable. FOLLOW UP: . ACTIVITY: Out of bed with assist. DIET: No added salt. MEDICATIONS: Listed on discharge medication list. PHYSICAL EXAMINATION: VITAL SIGNS: On discharge, afebrile, BP 152/71, pulse 68, and respiratory rate 19. NECK: Supple. LUNGS: Clear. CARDIAC: Regular. Normal S1, S2. ABDOMEN: Soft. 1+ edema left lower extremity. . HOSPITAL COURSE: This is a 76-year-old female with cerebrovascular disease, dementia, and limited mobility, who presented to the hospital with leg swelling and pain and was confirmed to have an acute DVT. The patient was started on IV heparin with PTT goal of two times control. There were no breast masses palpated and stool occult blood test was obtained and found to be positive. The patient was recommended for panendoscopy in part to do for a malignancy workup as well as diagnostic purposes prior to initiating oral anticoagulants. The patient was seen in GI consultation. The procedure scheduled, but the patient refused. The patient's hemoglobin remained stable and it was felt that she could pursue the procedure as an outpatient. As such, she was started on oral was to have her hemoglobin closely followed. FINAL DIAGNOSES: 1. Acute deep venous thrombosis left lower extremity. 2. Stool occult blood positive. 3. Anemia. 4. Cerebrovascular disease. 5. Hypertensive heart disease. Flako Carpio M.D. DR: VIRGILIO JOB#: [id number] CC:
== END 2017-04-17 19:28 | DRG 300 ==
LOC: EDBD 11:17 → EMR 11:44 → 4E 11:55 → EDBEDREQ 11:55
DX: I82.412 Acute embolism and thrombosis of left femoral vein (principal); E87.1 Hypo-osmolality and hyponatremia; E11.22 Type 2 diabetes mellitus with diabetic chronic kidney disease; I13.10 Hypertensive heart and chronic kidney disease without heart failure, with stage 1 through stage 4 chronic kidney disease, or unspecified chronic kidney disease; E44.1 Mild protein-calorie malnutrition; E11.9 Type 2 diabetes mellitus without complications; D64.9 Anemia, unspecified; E87.5 Hyperkalemia; E86.1 Hypovolemia; Z86.73 Personal history of transient ischemic attack (TIA), and cerebral infarction without residual deficits; Z68.27 Body mass index [BMI] 27.0-27.9, adult; N18.9 Chronic kidney disease, unspecified; F31.9 Bipolar disorder, unspecified; E88.09 Other disorders of plasma-protein metabolism, not elsewhere classified; R19.5 Other fecal abnormalities
CPT/HCPCS: 36415; 80048; 80053; 82270; 82550; 82553; 82962; 83735; 84100; 84443; 84484; 85025; 85610; 85730; 86850; 86900; 86901; 87081; 93970; 94664; J1815; J2405

== ENCOUNTER 2017-05-11 21:17 | Inpatient (IN) | payer MEDICARE, MEDICAID ==
[~2017-05-11] VITALS: Ht 165.1 cm; Wt 77.1 kg
[~2017-05-11 21:17] MED LIST changes: +ATORVASTATIN CA20 MG ORAL; +CLONIDINE0.1 MG GT; +CRANBERRY500 M4 PO; +DOCUSATE SODIU100 M2 ORAL; +DULCOLAX10 MG RC; +DUONEB 0.5-3(2.53 ML HHN; +FAMOTIDINE20 MG ORAL; +FLEET ENEMA133 M1 RC; +LORAZEPAM1 MG ORAL; +LORAZEPAM2 MG/1 M4 ORAL; +MELATONIN 3 MG1 EACH ORAL; +METFORMIN HCL500 M5 PO; +PROZAC40 MG ORAL; +RANITIDINE HCL150 MG ORAL; +RISPERIDONE3 MG ORAL; +TRADJENTA5 MG PO; +XARELTO20 MG ORAL; +ZINC SULFATE220 M2 ORAL; +ZOFRAN4 M1 ORAL
[2017-05-11 22:07] VITALS: BP 115/41
[2017-05-11 22:29] LABS: BASOPHILS % (AUTO) 1.2 % (0.0-2.0); EOSINOPHILS % (AUTO) 1.5 % (0.0-3.0); LYMPHOCYTES % (AUTO) 28.3 % (20.0-45.0); MEAN CORPUSCULAR HEMOGLOBIN 26.8 PG (27.0-31.0); MEAN CORPUSCULAR VOLUME 84 FL (80-99); MEAN PLATELET VOLUME 6.7 FL (6.5-10.1); MONOCYTES % (AUTO) 16.6 % (1.0-10.0); NEUTROPHILS % (AUTO) 52.5 % (45.0-75.0); PLATELET COUNT 244 K/UL (150-450); RED BLOOD COUNT 3.89 M/UL (4.20-5.40); RED CELL DISTRIBUTION WIDTH 14.4 % (11.6-14.8); WHITE BLOOD COUNT 6.7 K/UL (4.8-10.8)
[2017-05-11 22:51] LABS: ALANINE AMINOTRANSFERASE 10 U/L (3-33); ALBUMIN/GLOBULIN RATIO 0.8 (1.0-2.7); ANION GAP 13 (5-15); ASPARTATE AMINO TRANSFERASE 13 U/L (5-40); CALCIUM 9.4 mg/dL (8.6-10.2); CARBON DIOXIDE 23 mEQ/L (20-30); CHLORIDE 102 mEQ/L (98-107); HEMOLYSIS 11; LIPASE 26 U/L (< 60); POTASSIUM 4.3 mEQ/L (3.4-4.9); SODIUM 138 mEQ/L (135-145); TOTAL PROTEIN 7.4 g/dL (6.6-8.7)
[2017-05-12] VITALS (7 sets, daily range): BP systolic 123–155; BP diastolic 57–75
--- NOTE | 2017-05-12 01:14 | Emergency Room Report ---
History of Present Illness General Chief Complaint: Diarrhea Source: Patient, Medical Record, EMS Present Illness HPI Is a 76-year-old female with multiple medical problems. She was at a residential. She is alert oriented. She presents with chief complaint of diarrhea for last 4 days. No fever or chills but no nausea no vomiting. Diarrhea is profuse. No other complaint. No urinary complaint. Allergies: Coded Allergies: PENICILLINS (Verified Allergy, Intermediate, Itching, 06/25/12) PROPOXYPHENE HCL (Verified Allergy, Intermediate, Itching, 06/25/12) TETRACYCLINE (Verified Allergy, Intermediate, Itching, 06/25/12) PROPOXYPHENE (Verified Allergy, Unknown, 06/25/12) TETRACYCLINES (Unverified Allergy, Unknown, 05/11/17) HYDROCODONE (Verified Adverse Reaction, Intermediate, GI UPSET, 05/05/16) SULFA (SULFONAMIDE ANTIBIOTICS) (Verified Adverse Reaction, Intermediate, GI UPSET, 05/05/16) Patient History Past Medical History: see triage record, old chart reviewed Past Surgical History: other Pertinent Family History: none Social History: Denies: smoking Now: No Immunizations: other Reviewed Nursing Documentation: PMH: Agreed, PSxH: Agreed Nursing Documentation-PMH Hx Cardiac Problems: Yes - anemia, dysphagia, hypokalemia Hx Hypertension: Yes Hx Diabetes: Yes Hx Cancer: No Hx Gastrointestinal Problems: No Hx Neurological Problems: Yes Hx Cerebrovascular Accident: Yes Hx Dementia: Yes 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 Hx Memory Loss: Yes - short term Hx Speech Problem: No Hx Dysphasia: Yes Hx Weakness: Yes Review of Systems Eye: Denies: blurred vision, eye pain ENT: Denies: ear pain, nose congestion, throat swelling Respiratory: Denies: cough, shortness of breath Cardiovascular: Denies: chest pain, palpitations Gastrointestinal: Reports: diarrhea, Denies: abdominal pain, nausea, vomiting Musculoskeletal: Denies: back pain, joint pain Skin: Denies: rash Neurological: Denies: headache, numbness Endocrine: Denies: increased thirst, increased urine Hematologic/Lymphatic: Denies: easy bruising All Other Systems: negative except mentioned in HPI Physical Exam Vital Signs Date Time Temp Pulse Resp B/P Pulse Ox O2 Delivery O2 Flow Rate FiO2 05/11/17 21:00 97.2 80 16 135/63 94 Room Air vitals normal Sp02 EP Interpretation: reviewed, normal General Appearance: well appearing, no apparent distress, alert Head: normocephalic, atraumatic Eyes: bilateral eye EOMI, bilateral eye PERRL ENT: hearing grossly normal, normal pharynx Neck: full range of motion, supple, no meningismus Respiratory: chest non-tender, lungs clear, normal breath sounds Cardiovascular #1: regular rate, rhythm, no murmur Gastrointestinal: normal bowel sounds, non tender, no mass, no organomegaly, no bruit, non-distended Musculoskeletal: back normal, normal range of motion Neurologic: alert, oriented x3 Psychiatric: mood/affect normal Skin: warm/dry Medical Decision Making Diagnostic Impression: Primary Impression: Diarrhea Qualified Codes: A09 - Infectious gastroenteritis and colitis, unspecified Additional Impressions: Dehydration Anemia Qualified Codes: D64.9 - Anemia, unspecified ER Course Patient presents with protracted diarrhea. Concerning for C. difficile. She is mildly dehydrated. Will admit for IV fluid and further workup. Culture sent. Patient refused Reyes and just now given a urine sample. We'll treat if infected. Laboratory Tests Test 05/11/17 22:00 White Blood Count 6.7 K/UL (4.8-10.8) Red Blood Count 3.89 M/UL (4.20-5.40) L Hemoglobin 10.4 G/DL (12.0-16.0) L Hematocrit 32.5 % (37.0-47.0) L Mean Corpuscular Volume 84 FL (80-99) Mean Corpuscular Hemoglobin 26.8 PG (27.0-31.0) L Mean Corpuscular Hemoglobin Concent 32.0 G/DL (32.0-36.0) Red Cell Distribution Width 14.4 % (11.6-14.8) Platelet Count 244 K/UL (150-450) Mean Platelet Volume 6.7 FL (6.5-10.1) Neutrophils (%) (Auto) 52.5 % (45.0-75.0) Lymphocytes (%) (Auto) 28.3 % (20.0-45.0) Monocytes (%) (Auto) 16.6 % (1.0-10.0) H Eosinophils (%) (Auto) 1.5 % (0.0-3.0) Basophils (%) (Auto) 1.2 % (0.0-2.0) Sodium Level 138 mEQ/L (135-145) Potassium Level 4.3 mEQ/L (3.4-4.9) Chloride Level 102 mEQ/L (98-107) Carbon Dioxide Level 23 mEQ/L (20-30) Anion Gap 13 (5-15) Blood Urea Nitrogen 14 mg/dL (7-23) Creatinine 1.0 mg/dL (0.5-0.9) H Estimat Glomerular Filtration Rate mL/min (>60) Glucose Level 104 mg/dL (74-106) Calcium Level 9.4 mg/dL (8.6-10.2) Total Bilirubin < 0.2 mg/dL (0.0-1.2) Aspartate Amino Transf (AST/SGOT) 13 U/L (5-40) Alanine Aminotransferase (ALT/SGPT) 10 U/L (3-33) Alkaline Phosphatase 87 U/L (35-104) Total Protein 7.4 g/dL (6.6-8.7) Albumin 3.3 g/dL (3.5-5.2) L Globulin 4.1 g/dL Albumin/Globulin Ratio 0.8 (1.0-2.7) L Lipase 26 U/L (< 60) Lab Results Impression labs unremarkable except for anemia CT/MRI/US Diagnostic Results CT/MRI/US Diagnostic Results : Imaging Test Ordered: CT abdomen and pelvis Impression read by radiologist. Unremarkable. Last Vital Signs Date Time Temp Pulse Resp B/P Pulse Ox O2 Delivery O2 Flow Rate FiO2 05/11/17 22:07 97.2 82 16 115/41 94 Room Air Status: improved Disposition: ADMITTED INPATIENT Condition: Serious Referrals: NON PHYSICIAN (PCP) AMADRO JEWELL M.D. May 12, 2017 01:14
[2017-05-12 01:28] LABS: APPEARANCE,URINE SLIGHTLY CLOUDY; KETONES,URINE NEGATIVE (NEGATIVE); NITRITE,URINE NEGATIVE (NEGATIVE); PH,URINE 6.5 (4.5-8.0); PROTEIN,URINE NEGATIVE (NEGATIVE); UROBILINOGEN,URINE NORMAL MG/DL (0.0-1.0)
[2017-05-12 01:42] LABS: LEUKOCYTE ESTERASE ,URINE 1+ (NEGATIVE)
[2017-05-12 01:43] LABS: BACTERIA,URINE MANY /HPF; SQUAMOUS EPITHELIAL CELL,UR FEW /LPF (NONE/OCC)
[2017-05-12] MEDS ORDERED: Ertapenem 1 GM in NS 55 ML IV ONE (02:00)
[2017-05-12] MEDS ORDERED: Ertapenem (INVanz) Inj ONE (02:01)
[2017-05-12] MEDS ORDERED: DuoNeb 0.5-3(2.5)mg/3ml neb HHN PRN (07:45)
--- NOTE | 2017-05-12 09:11 | Diagnostic Imaging Report ---
Indications: Abdominal pain and diarrhea for 4 days Technique: Continuous helical CT imaging of the abdomen and pelvis was performed with automatic exposure control on a Siemens sensation [address] scanner. Axial, coronal, sagittal images reconstructed at 3 mm slice thickness. No oral or IV contrast was administered per requesting physician's order, despite no contraindications listed. CTDI volume(s): 17 mGy Total DLP: 833 mGy-cm Findings: Comparison: None Lack of oral and IV contrast limits evaluation. Air-fluid levels are present throughout the colon. Long segments of mild mural thickening not excludable. Multiple diverticula in sigmoid colon. Mild haziness surrounds rectum. No extraluminal gas or fluid collections detected. Appendix not identified. Stomach and small bowel without obvious acute abnormality. Scattered arterial mural calcifications. Vascular patency indeterminate. Small calcifications in both kidneys. Bilateral renal collecting systems and ureters nondilated. Focal cortical thinning lower pole left kidney. Apparent mural thickening partially distended urinary bladder. Prominent but otherwise unremarkable appearing lymph nodes in both inguinal regions. Remainder visualized abdominopelvic anatomy demonstrates no other obvious acute abnormality. 12 mm calcified nodule lower lobe right lung. Small irregular pleural-based linear densities in both lung bases. Multilevel disc space narrowing with marginal osteophyte formation, vacuum phenomenon, facet hypertrophy lumbar, lower thoracic spine. Impression: Limited exam due to technical factors described. Long segment proctocolitis suggested but not confirmed. Repeat CT scan with full oral and IV contrast preparation recommended for more complete evaluation. Apparent mild mural thickening of urinary bladder--underdistention versus hypertrophy versus cystitis Nonvisualization of appendix--no evidence of acute appendicitis No other evidence of acute abdominopelvic disease, with limitation as described. Subtle but potentially significant abnormalities may be missed. Repeat CT scan with full oral and IV contrast preparation recommended for more complete evaluation. Nonobstructive bilateral nephrolithiasis collecting system fullness described in [facility] preliminary report is felt to represent an overcall. Cortical scarring lower pole left kidney Arteriosclerosis Calcified granuloma right lung base Pulmonary bibasal subsegmental atelectasis versus scarring Thoracolumbar degenerative spondylosis This otherwise correlates with [facility] preliminary report.
[2017-05-12] MEDS: Aspirin Baby 81mg ORAL SCH (09:51)
[2017-05-12] MEDS: Lisinopril 20mg tab ORAL SCH (09:52)
[2017-05-12] MEDS: Xarelto 10mg tab ORAL SCH (09:52)
[2017-05-12] MEDS: metFORMIN 500mg tab ORAL SCH ×2 (09:53→18:02)
[2017-05-12] MEDS: NovoLOG Insulin Flexpen SUBQ SCH ×3 (11:30→20:33)
--- NOTE | 2017-05-12 11:30 | History and Physical Report ---
DATE OF ADMISSION: 05/12/2017 CHIEF COMPLAINT: Diarrhea. HISTORY OF PRESENT ILLNESS: The patient is a very pleasant 76-year-old female. She was recently diagnosed with DVT, on Xarelto. She has a history of hypertension, stroke, bipolar disorder, diabetes, and MRSA. She was transferred from [facility] with complaints of daily 2 weeks of watery diarrhea. According to the patient, she was well until 10 to 11 days prior to admission when she developed watery diarrhea. She was having multiple episodes a day. It is unclear whether or not C. difficile was sent, but her symptoms persisted. In light of the persistent diarrhea that was not improving, she is now admitted for further evaluation and care. She denies any ill contacts. No fevers or chills. Denies any melena or bright red blood per rectum. In the emergency room, CT scan of the abdomen was unremarkable. Specifically, there is no evidence of any colitis. Labs showed a normal white count and creatinine. The patient is now admitted for further evaluation and care. PAST MEDICAL HISTORY: As above. PAST SURGICAL HISTORY: None. CURRENT MEDICATIONS: Reconciled and reviewed. ALLERGIES: Include hydrocodone, penicillin, propoxyphene, sulfa, and tetracycline. FAMILY HISTORY: Noncontributory. SOCIAL HISTORY: There is no known history of tobacco, ethanol, or drugs. REVIEW OF SYSTEMS: General: No fevers or chills. HEENT: No headaches or visual changes. Cardiopulmonary: No chest pain or shortness of breath. Gastrointestinal: Positive diarrhea. Genitourinary: No urgency or frequency. Musculoskeletal: No dependent swelling. Neurologic: No evidence of seizures. PHYSICAL EXAMINATION: GENERAL: The patient is a well-developed female, in no apparent distress. VITAL SIGNS: Temperature 97.2 degrees, pulse 90, respirations 20, and blood pressure 155/75. HEART: Regular rate and rhythm. LUNGS: Clear. ABDOMEN: Soft, nontender, and nondistended. EXTREMITIES: Without clubbing, cyanosis, or edema. LABORATORY DATA: White count 6 and hemoglobin 10. Sodium 138, potassium 4.3, and creatinine was 1. UA was clear. ASSESSMENT: 1. This is a pleasant female diarrhea. 2. Rule out Clostridium difficile colitis. 3. Stroke. 4. Hypertension. 5. Diabetes. 6. History of deep vein thrombosis. PLAN: 1. Discontinue the patient's laxatives. 2. Check stool for Clostridium difficile. 3. Check thyroid function test. 4. Hydration. 5. Antidiarrheal therapy, otherwise continue outpatient regimen. Tam Wall M.D. DR: IAN JOB#: [id number] CC:
[2017-05-12] MEDS: Atorvastatin 20mg tab ORAL SCH (20:31)
[2017-05-13 04:00] VITALS: BP 123/64
[2017-05-13] MEDS: NovoLOG Insulin Flexpen SUBQ SCH ×4 (06:01→21:00)
[2017-05-13 08:00] VITALS: BP 122/63
[2017-05-13] MEDS: Aspirin Baby 81mg ORAL SCH (08:47)
[2017-05-13] MEDS: Lisinopril 20mg tab ORAL SCH (08:47)
[2017-05-13] MEDS: metFORMIN 500mg tab ORAL SCH ×2 (08:47→17:59)
[2017-05-13] MEDS: Xarelto 10mg tab ORAL SCH (08:48)
[2017-05-13] MEDS ORDERED: NS 275ml ONE (11:14)
[2017-05-13 12:00] VITALS: BP 134/66
--- NOTE | 2017-05-13 13:59 | General Progress Note ---
Assessment/Plan Problem List: (1) Hyponatremia (2) E. coli UTI (urinary tract infection) ICD Codes: B96.20 - Unsp Escherichia coli as the cause of diseases classd elswhr; N39.0 - E. coli UTI (urinary tract infection) SNOMED: 433942641 (3) Diabetes ICD Codes: E11.9 - Diabetes SNOMED: 28313537 (4) CVA (cerebral vascular accident) ICD Codes: I63.9 - CVA (cerebral vascular accident) SNOMED: 337856476 (5) Hypertension ICD Codes: I10 - Hypertension SNOMED: 16689551 (6) Diarrhea ICD Codes: R19.7 - Diarrhea, unspecified SNOMED: 76801529 Qualifiers: Qualified Codes: A09 - Infectious gastroenteritis and colitis, unspecified (7) Dehydration ICD Codes: E86.0 - Dehydration SNOMED: 85874216 (8) Anemia ICD Codes: D64.9 - Anemia, unspecified SNOMED: 204127986 Qualifiers: Qualified Codes: D64.9 - Anemia, unspecified Status: stable, not improved Assessment/Plan cont ivf antidiarrheals gi eval repeat urine studies Subjective ROS Limited/Unobtainable: No Constitutional: Reports: malaise, weakness HEENT: Reports: no symptoms Cardiovascular: Reports: no symptoms Respiratory: Reports: no symptoms Gastrointestinal/Abdominal: Reports: diarrhea Genitourinary: Reports: no symptoms Neurologic/Psychiatric: Reports: no symptoms Endocrine: Reports: no symptoms Hematologic/Lymphatic: Reports: anemia Allergies: Coded Allergies: PENICILLINS (Verified Allergy, Intermediate, Itching, 06/25/12) PROPOXYPHENE HCL (Verified Allergy, Intermediate, Itching, 06/25/12) TETRACYCLINE (Verified Allergy, Intermediate, Itching, 06/25/12) PROPOXYPHENE (Verified Allergy, Unknown, 06/25/12) TETRACYCLINES (Unverified Allergy, Unknown, 05/11/17) HYDROCODONE (Verified Adverse Reaction, Intermediate, GI UPSET, 05/05/16) SULFA (SULFONAMIDE ANTIBIOTICS) (Verified Adverse Reaction, Intermediate, GI UPSET, 05/05/16) All Systems: reviewed and negative except above Subjective still with diarrhea. cdiff negative. no cp/sob. no abd pain. Objective Last 24 Hour Vital Signs Date Time Temp Pulse Resp B/P Pulse Ox O2 Delivery O2 Flow Rate FiO2 05/13/17 08:48 78 124/67 05/13/17 08:47 124/67 05/13/17 08:00 97.9 78 20 122/63 98 Room Air 05/13/17 07:29 85 18 Room Air 21 05/13/17 04:00 98.8 79 18 123/64 100 Room Air 05/12/17 23:56 99.0 83 17 123/66 95 Room Air 05/12/17 21:13 84 18 Room Air 21 05/12/17 19:48 98.4 86 17 136/62 94 Room Air 05/12/17 15:41 99.1 82 21 129/62 95 Room Air Intake and Output 05/12/17 05/13/17 19:00 07:00 Intake Total 835 ml 1110 ml Balance 835 ml 1110 ml Intake Oral 760 ml 360 ml IV Total 75 ml 750 ml # Voids 3 2 # Bowel Movements 3 1 Height (Feet): 5 Height (Inches): 6.00 Weight (Pounds): 170 General Appearance: WD/WN, alert Neck: supple Cardiovascular: regular rhythm Respiratory/Chest: chest wall non-tender, lungs clear, normal breath sounds, no respiratory distress Abdomen: normal bowel sounds, non tender, soft, no organomegaly 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
[2017-05-13 15:01] LABS: BASOPHILS % (AUTO) 0.7 % (0.0-2.0); LYMPHOCYTES % (AUTO) 25.8 % (20.0-45.0); MEAN CORPUSCULAR HEMOGLOBIN 25.1 PG (27.0-31.0); MEAN CORPUSCULAR HGB CONC 30.8 G/DL (32.0-36.0); MEAN CORPUSCULAR VOLUME 82 FL (80-99); MEAN PLATELET VOLUME 6.3 FL (6.5-10.1); MONOCYTES % (AUTO) 14.5 % (1.0-10.0); PLATELET COUNT 271 K/UL (150-450); RED BLOOD COUNT 3.91 M/UL (4.20-5.40); RED CELL DISTRIBUTION WIDTH 14.2 % (11.6-14.8); WHITE BLOOD COUNT 6.3 K/UL (4.8-10.8)
[2017-05-13 15:31] LABS: ALANINE AMINOTRANSFERASE 8 U/L (3-33); ALBUMIN/GLOBULIN RATIO 0.8 (1.0-2.7); ANION GAP 13 (5-15); ASPARTATE AMINO TRANSFERASE 12 U/L (5-40); CALCIUM 9.3 mg/dL (8.6-10.2); CARBON DIOXIDE 24 mEQ/L (20-30); CHLORIDE 101 mEQ/L (98-107); CREATININE 0.9 mg/dL (0.5-0.9); HEMOLYSIS 0; POTASSIUM 4.6 mEQ/L (3.4-4.9); SODIUM 138 mEQ/L (135-145); TOTAL PROTEIN 7.2 g/dL (6.6-8.7)
[2017-05-13 16:00] VITALS: BP 139/62
[2017-05-13] MEDS: Lomotil 2.5mg tab ORAL PRN (17:59)
[2017-05-13 19:34] VITALS: BP 131/63
[2017-05-13] MEDS: Atorvastatin 20mg tab ORAL SCH (21:19)
[2017-05-14] VITALS: BP 161/71
[2017-05-14 04:00] VITALS: BP 159/66
[2017-05-14] MEDS: NovoLOG Insulin Flexpen SUBQ SCH ×4 (06:30→21:00)
[2017-05-14 07:56] VITALS: BP 146/72
[2017-05-14] MEDS: Xarelto 10mg tab ORAL SCH (08:44)
[2017-05-14] MEDS: Lisinopril 20mg tab ORAL SCH (08:44)
[2017-05-14] MEDS: Aspirin Baby 81mg ORAL SCH (08:44)
[2017-05-14] MEDS: metFORMIN 500mg tab ORAL SCH ×2 (08:45→16:51)
[2017-05-14] MEDS: Lomotil 2.5mg tab ORAL PRN (08:59)
--- NOTE | 2017-05-14 10:42 | General Progress Note ---
Assessment/Plan Problem List: (1) Hyponatremia (2) E. coli UTI (urinary tract infection) ICD Codes: B96.20 - Unsp Escherichia coli as the cause of diseases classd elswhr; N39.0 - E. coli UTI (urinary tract infection) SNOMED: 505209616 (3) Diabetes ICD Codes: E11.9 - Diabetes SNOMED: 72299596 (4) CVA (cerebral vascular accident) ICD Codes: I63.9 - CVA (cerebral vascular accident) SNOMED: 488788780 (5) Hypertension ICD Codes: I10 - Hypertension SNOMED: 80556671 (6) Diarrhea ICD Codes: R19.7 - Diarrhea, unspecified SNOMED: 97960665 Qualifiers: Qualified Codes: A09 - Infectious gastroenteritis and colitis, unspecified (7) Dehydration ICD Codes: E86.0 - Dehydration SNOMED: 95980830 (8) Anemia ICD Codes: D64.9 - Anemia, unspecified SNOMED: 965568998 Qualifiers: Qualified Codes: D64.9 - Anemia, unspecified Status: stable, not improved Assessment/Plan cont ivf antidiarrheals gi eval called repeat urine studies stool cultures Subjective ROS Limited/Unobtainable: No Constitutional: Reports: malaise, weakness HEENT: Reports: no symptoms Cardiovascular: Reports: no symptoms Respiratory: Reports: no symptoms Gastrointestinal/Abdominal: Reports: diarrhea Genitourinary: Reports: no symptoms Neurologic/Psychiatric: Reports: no symptoms Endocrine: Reports: no symptoms Hematologic/Lymphatic: Reports: no symptoms Allergies: Coded Allergies: PENICILLINS (Verified Allergy, Intermediate, Itching, 06/25/12) PROPOXYPHENE HCL (Verified Allergy, Intermediate, Itching, 06/25/12) TETRACYCLINE (Verified Allergy, Intermediate, Itching, 06/25/12) PROPOXYPHENE (Verified Allergy, Unknown, 06/25/12) TETRACYCLINES (Unverified Allergy, Unknown, 05/11/17) HYDROCODONE (Verified Adverse Reaction, Intermediate, GI UPSET, 05/05/16) SULFA (SULFONAMIDE ANTIBIOTICS) (Verified Adverse Reaction, Intermediate, GI UPSET, 05/05/16) All Systems: reviewed and negative except above Subjective still with diarrhea. cdiff negative. no cp/sob. no abd pain. Objective Last 24 Hour Vital Signs Date Time Temp Pulse Resp B/P Pulse Ox O2 Delivery O2 Flow Rate FiO2 05/14/17 09:12 Room Air 05/14/17 08:44 146/72 05/14/17 08:44 87 146/72 05/14/17 07:56 97.7 87 18 146/72 93 Room Air 05/14/17 04:00 97.4 77 20 159/66 94 Room Air 05/14/17 00:00 97.5 82 20 161/71 97 Room Air 05/13/17 20:38 88 18 Room Air 21 05/13/17 19:34 98.8 77 19 131/63 93 Room Air 05/13/17 17:54 97.9 05/13/17 16:00 97.9 20 139/62 95 Room Air 05/13/17 12:00 98.1 79 20 134/66 94 Room Air Intake and Output 05/13/17 05/14/17 19:00 07:00 Intake Total 575 ml 750 ml Balance 575 ml 750 ml Intake Oral 500 ml IV Total 75 ml 750 ml # Voids 3 3 # Bowel Movements 4 2 Laboratory Tests 05/13/17 14:45: White Blood Count 6.3, Red Blood Count 3.91L, Hemoglobin 9.8L, Hematocrit 31.9L , Mean Corpuscular Volume 82, Mean Corpuscular Hemoglobin 25.1L, Mean Corpuscular Hemoglobin Concent 30.8L, Red Cell Distribution Width 14.2, Platelet Count 271, Mean Platelet Volume 6.3L, Neutrophils (%) (Auto) 58.0, Lymphocytes (%) (Auto) 25.8, Monocytes (%) (Auto) 14.5H, Eosinophils (%) (Auto) 1.0, Basophils (%) (Auto) 0.7, Sodium Level 138, Potassium Level 4.6, Chloride Level 101, Carbon Dioxide Level 24, Anion Gap 13, Blood Urea Nitrogen 10, Creatinine 0.9, Estimat Glomerular Filtration Rate , Glucose Level 99, Calcium Level 9.3, Total Bilirubin 0.2, Aspartate Amino Transf (AST/SGOT) 12, Alanine Aminotransferase (ALT/SGPT) 8, Alkaline Phosphatase 64, Total Protein 7.2, Albumin 3.3L, Globulin 3.9, Albumin/Globulin Ratio 0.8L Height (Feet): 5 Height (Inches): 6.00 Weight (Pounds): 170 Objective General Appearance: WD/WN, alert Neck: supple Cardiovascular: regular rhythm Respiratory/Chest: chest wall non-tender, lungs clear, normal breath sounds, no respiratory distress Abdomen: normal bowel sounds, non tender, soft, no organomegaly Neurologic: surg rn II-XII grossly normal, no motor/sensory deficits, alert, oriented x 3, responsive ROSA WILSON May 14, 2017 10:42
[2017-05-14 11:56] VITALS: BP 139/70
--- NOTE | 2017-05-14 12:48 | General Progress Note ---
Assessment/Plan Assessment/Plan Assessment - New onset diarrhea, ? etiol, C Diff (-) - LLQ abd TTP - abdominal distention - Anemia Recommendations - check Stools OB, cultures, O&P - Check CT abd/pelvis - empiric flagyl trial - push po - check Fe panel - declines colonoscopy Thank you Salena Reddy MD Subjective Allergies: Coded Allergies: PENICILLINS (Verified Allergy, Intermediate, Itching, 06/25/12) PROPOXYPHENE HCL (Verified Allergy, Intermediate, Itching, 06/25/12) TETRACYCLINE (Verified Allergy, Intermediate, Itching, 06/25/12) PROPOXYPHENE (Verified Allergy, Unknown, 06/25/12) TETRACYCLINES (Unverified Allergy, Unknown, 05/11/17) HYDROCODONE (Verified Adverse Reaction, Intermediate, GI UPSET, 05/05/16) SULFA (SULFONAMIDE ANTIBIOTICS) (Verified Adverse Reaction, Intermediate, GI UPSET, 05/05/16) Objective Last 24 Hour Vital Signs Date Time Temp Pulse Resp B/P Pulse Ox O2 Delivery O2 Flow Rate FiO2 05/14/17 11:56 97.9 76 18 139/70 92 Room Air 05/14/17 09:12 Room Air 05/14/17 08:44 146/72 05/14/17 08:44 87 146/72 05/14/17 07:56 97.7 87 18 146/72 93 Room Air 05/14/17 04:00 97.4 77 20 159/66 94 Room Air 05/14/17 00:00 97.5 82 20 161/71 97 Room Air 05/13/17 20:38 88 18 Room Air 21 05/13/17 19:34 98.8 77 19 131/63 93 Room Air 05/13/17 17:54 97.9 05/13/17 16:00 97.9 20 139/62 95 Room Air Intake and Output 05/13/17 05/14/17 19:00 07:00 Intake Total 575 ml 750 ml Balance 575 ml 750 ml Intake Oral 500 ml IV Total 75 ml 750 ml # Voids 3 3 # Bowel Movements 4 2 Laboratory Tests 05/13/17 14:45: White Blood Count 6.3, Red Blood Count 3.91L, Hemoglobin 9.8L, Hematocrit 31.9L , Mean Corpuscular Volume 82, Mean Corpuscular Hemoglobin 25.1L, Mean Corpuscular Hemoglobin Concent 30.8L, Red Cell Distribution Width 14.2, Platelet Count 271, Mean Platelet Volume 6.3L, Neutrophils (%) (Auto) 58.0, Lymphocytes (%) (Auto) 25.8, Monocytes (%) (Auto) 14.5H, Eosinophils (%) (Auto) 1.0, Basophils (%) (Auto) 0.7, Sodium Level 138, Potassium Level 4.6, Chloride Level 101, Carbon Dioxide Level 24, Anion Gap 13, Blood Urea Nitrogen 10, Creatinine 0.9, Estimat Glomerular Filtration Rate , Glucose Level 99, Calcium Level 9.3, Total Bilirubin 0.2, Aspartate Amino Transf (AST/SGOT) 12, Alanine Aminotransferase (ALT/SGPT) 8, Alkaline Phosphatase 64, Total Protein 7.2, Albumin 3.3L, Globulin 3.9, Albumin/Globulin Ratio 0.8L Height (Feet): 5 Height (Inches): 6.00 Weight (Pounds): 170 SALENA REDDY May 14, 2017 12:48
[2017-05-14] MEDS: metroNIDAZOLE 250mg tab ORAL SCH ×2 (15:12→16:51)
[2017-05-14 16:15] VITALS: BP 129/64
--- NOTE | 2017-05-14 17:15 | Consultation ---
DATE OF CONSULTATION: 05/14/2017 GASTROENTEROLOGY CONSULTATION CHIEF COMPLAINT: I was asked to see this patient for evaluation of diarrhea by Dr. Tam Wall. HISTORY OF PRESENT ILLNESS: The patient is a pleasant 76-year-old woman, who resides in a board and care, who comes in with a 12-day history of diarrhea. She states that she has approximately four bowel movements a day, two in the morning and two at night, which are loose and new onset. She states that there were severe other people in her facility, who have likewise developed recent onset of diarrhea. She denies nausea, vomiting, hematochezia, or abdominal pain. Her appetite is intact. She has never had a colonoscopy and requires immediately, but she never want to have one regardless of need or consequences of not having one. The patient's granddaughter, who is a physician transition assistant was at bedside during this interview. The patient is otherwise normal and has no complaints. PAST MEDICAL HISTORY: Remarkable for hypertension, history of diabetes, and history of arthritis. FAMILY HISTORY: Noncontributory. SOCIAL HISTORY: The patient resides in an assisted care facility. She smokes one pack of cigarettes daily, but does not drink alcohol. REVIEW OF SYSTEMS: Positive for some diffuse abdominal distention. PHYSICAL EXAMINATION: GENERAL: This is a pleasant woman, seen in her room. HEENT: Normocephalic and atraumatic. Sclerae are anicteric. Oropharynx clear. NECK: Supple. CHEST: Clear to auscultation. CARDIOVASCULAR: Revealed regular rate. ABDOMEN: Obese and mildly distended. There is some minimal left lower quadrant tenderness to palpation without guarding or rebound. EXTREMITIES: Reveal no edema. LABORATORY DATA: Noted. ASSESSMENT: This patient presents with new onset of diarrhea in the facility setting. Some other residents have reportedly have also been affected with diarrhea. This is strongly a possibility of infectious diarrhea and this would include rotavirus infections, norovirus infections, Giardia infection, as well as other usual pathogens. The patient has already been checked for Clostridium difficile and this is negative. Nonetheless, she can be treated with empiric course of Flagyl since she has already waited 12 days and she is not doing better. In the meantime, her stools should be checked and other pathogens will be evaluated. The patient's stool should also be checked for occult blood, although the patient adamantly refuses colonoscopy. The patient also complains of some abdominal distention and she has some mild left lower quadrant tenderness. For this, she should undergo a CT scan of the abdomen and pelvis to evaluate for any significant gastrointestinal pathology. RECOMMENDATIONS: Per above discussion and per orders written in the chart. Thank you for asking me to participate in the care of this patient. Salena Reddy M.D. DR: RAYO JOB#: [id number] CC:
[2017-05-14 20:00] VITALS: BP 133/78
[2017-05-14] MEDS: Atorvastatin 20mg tab ORAL SCH (21:28)
[2017-05-15] VITALS: BP 122/67
[2017-05-15] MEDS: metroNIDAZOLE 250mg tab ORAL SCH ×4 (01:58→16:59)
[2017-05-15 04:00] VITALS: BP 139/77
[2017-05-15] MEDS: NovoLOG Insulin Flexpen SUBQ SCH ×4 (05:55→21:00)
[2017-05-15 07:28] LABS: HEMOLYSIS 6; IRON 28 ug/dL (37-145); TOTAL IRON BINDING CAPACITY 227 ug/dL (250-400)
--- NOTE | 2017-05-15 07:59 | General Progress Note ---
Assessment/Plan Problem List: (1) Hyponatremia (2) E. coli UTI (urinary tract infection) ICD Codes: B96.20 - Unsp Escherichia coli as the cause of diseases classd elswhr; N39.0 - E. coli UTI (urinary tract infection) SNOMED: 816090743 (3) Diabetes ICD Codes: E11.9 - Diabetes SNOMED: 90858634 (4) CVA (cerebral vascular accident) ICD Codes: I63.9 - CVA (cerebral vascular accident) SNOMED: 942131314 (5) Hypertension ICD Codes: I10 - Hypertension SNOMED: 82436135 (6) Diarrhea ICD Codes: R19.7 - Diarrhea, unspecified SNOMED: 16968598 Qualifiers: Qualified Codes: A09 - Infectious gastroenteritis and colitis, unspecified (7) Dehydration ICD Codes: E86.0 - Dehydration SNOMED: 18185682 (8) Anemia ICD Codes: D64.9 - Anemia, unspecified SNOMED: 090945321 Qualifiers: Qualified Codes: D64.9 - Anemia, unspecified Status: stable, not improved, unchanged Assessment/Plan cont ivf antidiarrheals gi eval apprecaited repeat ct with otal contrast dc metformin- ?contributing to diarrhea repeat urine studies stool cultures Subjective ROS Limited/Unobtainable: No Constitutional: Reports: malaise, weakness HEENT: Reports: no symptoms Cardiovascular: Reports: no symptoms Respiratory: Reports: no symptoms Gastrointestinal/Abdominal: Reports: abdominal pain, diarrhea Genitourinary: Reports: no symptoms Neurologic/Psychiatric: Reports: no symptoms Endocrine: Reports: no symptoms Hematologic/Lymphatic: Reports: no symptoms Allergies: Coded Allergies: PENICILLINS (Verified Allergy, Intermediate, Itching, 06/25/12) PROPOXYPHENE HCL (Verified Allergy, Intermediate, Itching, 06/25/12) TETRACYCLINE (Verified Allergy, Intermediate, Itching, 06/25/12) PROPOXYPHENE (Verified Allergy, Unknown, 06/25/12) TETRACYCLINES (Unverified Allergy, Unknown, 05/11/17) HYDROCODONE (Verified Adverse Reaction, Intermediate, GI UPSET, 05/05/16) SULFA (SULFONAMIDE ANTIBIOTICS) (Verified Adverse Reaction, Intermediate, GI UPSET, 05/05/16) All Systems: reviewed and negative except above Subjective still with diarrhea. cdiff negative. no cp/sob. mild abd pain. refused colonoscopy. Objective Last 24 Hour Vital Signs Date Time Temp Pulse Resp B/P Pulse Ox O2 Delivery O2 Flow Rate FiO2 05/15/17 04:00 97.7 65 20 139/77 95 Room Air 05/15/17 00:00 97.7 77 20 122/67 95 Room Air 05/14/17 20:58 84 19 Room Air 21 05/14/17 20:00 97.9 84 19 133/78 96 Room Air 05/14/17 16:15 98.1 83 18 129/64 96 Room Air 05/14/17 11:56 97.9 76 18 139/70 92 Room Air 05/14/17 09:12 Room Air 05/14/17 08:44 146/72 05/14/17 08:44 87 146/72 Intake and Output 05/14/17 05/15/17 19:00 07:00 # Voids 4 2 # Bowel Movements 3 5 Laboratory Tests 05/15/17 05:45: Iron Level 28L, Total Iron Binding Capacity 227L, Percent Iron Saturation 12L, Unsaturated Iron Binding 199 Height (Feet): 5 Height (Inches): 6.00 Weight (Pounds): 170 Objective General Appearance: WD/WN, alert Neck: supple Cardiovascular: regular rhythm Respiratory/Chest: chest wall non-tender, lungs clear, normal breath sounds, no respiratory distress Abdomen: normal bowel sounds, non tender, soft, no organomegaly Neurologic: 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
[2017-05-15 08:11] VITALS: BP 126/57
[2017-05-15] MEDS: Repaglinide 0.5mg Tab ORAL SCH ×4 (09:00→16:59)
[2017-05-15] MEDS: Xarelto 10mg tab ORAL SCH (11:35)
[2017-05-15] MEDS: Lisinopril 20mg tab ORAL SCH (11:35)
[2017-05-15] MEDS: Aspirin Baby 81mg ORAL SCH (11:35)
[2017-05-15 11:57] VITALS: BP 117/64
[2017-05-15 15:52] VITALS: BP 122/53
--- NOTE | 2017-05-15 18:32 | General Progress Note ---
Assessment/Plan Assessment/Plan Assessment - dirrrhea - resolved? - LLQ abd TTP - improved - abdominal distention - likely due to colitis - Anemia - declines colonoscopy Recommendations - check Stools OB, O&P - await CT abd/pelvis with po contrast (declines IV contrast) - empiric flagyl trial - push po Subjective Allergies: Coded Allergies: PENICILLINS (Verified Allergy, Intermediate, Itching, 06/25/12) PROPOXYPHENE HCL (Verified Allergy, Intermediate, Itching, 06/25/12) TETRACYCLINE (Verified Allergy, Intermediate, Itching, 06/25/12) PROPOXYPHENE (Verified Allergy, Unknown, 06/25/12) TETRACYCLINES (Unverified Allergy, Unknown, 05/11/17) HYDROCODONE (Verified Adverse Reaction, Intermediate, GI UPSET, 05/05/16) SULFA (SULFONAMIDE ANTIBIOTICS) (Verified Adverse Reaction, Intermediate, GI UPSET, 05/05/16) Subjective Feels OK tolerating po diet declines IV contrast for repeat CT repeat CT with PO contrast pending BM solid per RN notes Objective Last 24 Hour Vital Signs Date Time Temp Pulse Resp B/P Pulse Ox O2 Delivery O2 Flow Rate FiO2 05/15/17 15:52 98.0 82 20 122/53 96 Room Air 05/15/17 11:57 97.9 81 20 117/64 98 Room Air 05/15/17 11:35 126/57 05/15/17 11:35 75 126/57 05/15/17 08:11 97.8 75 20 126/57 97 Room Air 05/15/17 07:30 76 20 Room Air 21 05/15/17 04:00 97.7 65 20 139/77 95 Room Air 05/15/17 00:00 97.7 77 20 122/67 95 Room Air 05/14/17 20:58 84 19 Room Air 21 05/14/17 20:00 97.9 84 19 133/78 96 Room Air Intake and Output 05/14/17 05/15/17 19:00 07:00 # Voids 4 2 # Bowel Movements 3 5 Laboratory Tests 05/15/17 05:45: Iron Level 28L, Total Iron Binding Capacity 227L, Percent Iron Saturation 12L, Unsaturated Iron Binding 199 Height (Feet): 5 Height (Inches): 6.00 Weight (Pounds): 170 Objective WDWN AA woman NCAT Supple CTA RRR abd soft, non tender, mildly distended, no mass no edema non focal neuro MIRNA LEDEZMA May 15, 2017 18:32
[2017-05-15 20:00] VITALS: BP 119/56
[2017-05-15] MEDS: Atorvastatin 20mg tab ORAL SCH (21:57)
[2017-05-16] MEDS: metroNIDAZOLE 250mg tab ORAL SCH ×4 (00:25→18:39)
[2017-05-16 04:00] VITALS: BP 134/62
[2017-05-16] MEDS: Repaglinide 0.5mg Tab ORAL SCH ×3 (06:29→18:39)
[2017-05-16] MEDS: NovoLOG Insulin Flexpen SUBQ SCH ×4 (06:30→20:15)
[2017-05-16 08:18] VITALS: BP 135/63
--- NOTE | 2017-05-16 08:36 | General Progress Note ---
Assessment/Plan Problem List: (1) Diarrhea ICD Codes: R19.7 - Diarrhea, unspecified SNOMED: 71197347 Qualifiers: Qualified Codes: A09 - Infectious gastroenteritis and colitis, unspecified (2) Anemia ICD Codes: D64.9 - Anemia, unspecified SNOMED: 402837620 Qualifiers: Qualified Codes: D64.9 - Anemia, unspecified Assessment/Plan iv iron plan EGD and colonoscopy on Thursday Subjective ROS Limited/Unobtainable: Yes Allergies: Coded Allergies: PENICILLINS (Verified Allergy, Intermediate, Itching, 06/25/12) PROPOXYPHENE HCL (Verified Allergy, Intermediate, Itching, 06/25/12) TETRACYCLINE (Verified Allergy, Intermediate, Itching, 06/25/12) PROPOXYPHENE (Verified Allergy, Unknown, 06/25/12) TETRACYCLINES (Unverified Allergy, Unknown, 05/11/17) HYDROCODONE (Verified Adverse Reaction, Intermediate, GI UPSET, 05/05/16) SULFA (SULFONAMIDE ANTIBIOTICS) (Verified Adverse Reaction, Intermediate, GI UPSET, 05/05/16) Subjective still has diarrhea Objective Last 24 Hour Vital Signs Date Time Temp Pulse Resp B/P Pulse Ox O2 Delivery O2 Flow Rate FiO2 05/16/17 08:18 97.8 75 20 135/63 95 Room Air 05/16/17 04:00 98.2 90 18 134/62 100 Room Air 05/15/17 20:00 98.2 70 18 119/56 95 Room Air 05/15/17 15:52 98.0 82 20 122/53 96 Room Air 05/15/17 11:57 97.9 81 20 117/64 98 Room Air 05/15/17 11:35 126/57 05/15/17 11:35 75 126/57 Intake and Output 05/15/17 05/16/17 19:00 07:00 Intake Total 720 ml Balance 720 ml Intake Oral 720 ml # Voids 3 1 # Bowel Movements 1 1 Laboratory Tests 05/16/17 05:00: Stool Occult Blood [Pending] Height (Feet): 5 Height (Inches): 6.00 Weight (Pounds): 170 General Appearance: alert EENT: normal ENT inspection Neck: supple Cardiovascular: normal rate Respiratory/Chest: lungs clear Abdomen: normal bowel sounds, non tender, soft Extremities: non-tender VOSOGHI,DANIELE May 16, 2017 08:36
--- NOTE | 2017-05-16 09:10 | General Progress Note ---
Assessment/Plan Problem List: (1) Hyponatremia (2) E. coli UTI (urinary tract infection) ICD Codes: B96.20 - Unsp Escherichia coli as the cause of diseases classd elswhr; N39.0 - E. coli UTI (urinary tract infection) SNOMED: 043412986 (3) Diabetes ICD Codes: E11.9 - Diabetes SNOMED: 82484019 (4) CVA (cerebral vascular accident) ICD Codes: I63.9 - CVA (cerebral vascular accident) SNOMED: 462053988 (5) Hypertension ICD Codes: I10 - Hypertension SNOMED: 19649259 (6) Diarrhea ICD Codes: R19.7 - Diarrhea, unspecified SNOMED: 83743128 Qualifiers: Qualified Codes: A09 - Infectious gastroenteritis and colitis, unspecified (7) Dehydration ICD Codes: E86.0 - Dehydration SNOMED: 02354233 (8) Anemia ICD Codes: D64.9 - Anemia, unspecified SNOMED: 576321371 Qualifiers: Qualified Codes: D64.9 - Anemia, unspecified Assessment/Plan ivf antidiarrheals pt now agrees to colonoscopy on thursday Subjective Allergies: Coded Allergies: PENICILLINS (Verified Allergy, Intermediate, Itching, 06/25/12) PROPOXYPHENE HCL (Verified Allergy, Intermediate, Itching, 06/25/12) TETRACYCLINE (Verified Allergy, Intermediate, Itching, 06/25/12) PROPOXYPHENE (Verified Allergy, Unknown, 06/25/12) TETRACYCLINES (Unverified Allergy, Unknown, 05/11/17) HYDROCODONE (Verified Adverse Reaction, Intermediate, GI UPSET, 05/05/16) SULFA (SULFONAMIDE ANTIBIOTICS) (Verified Adverse Reaction, Intermediate, GI UPSET, 05/05/16) Subjective still with diarrhea. cdiff negative. no cp/sob. mild abd pain. now agrees to colonoscopy Objective Last 24 Hour Vital Signs Date Time Temp Pulse Resp B/P Pulse Ox O2 Delivery O2 Flow Rate FiO2 05/16/17 08:18 97.8 75 20 135/63 95 Room Air 05/16/17 04:00 98.2 90 18 134/62 100 Room Air 05/15/17 20:00 98.2 70 18 119/56 95 Room Air 05/15/17 15:52 98.0 82 20 122/53 96 Room Air 05/15/17 11:57 97.9 81 20 117/64 98 Room Air 05/15/17 11:35 126/57 05/15/17 11:35 75 126/57 Intake and Output 05/15/17 05/16/17 19:00 07:00 Intake Total 720 ml Balance 720 ml Intake Oral 720 ml # Voids 3 1 # Bowel Movements 1 1 Laboratory Tests 05/16/17 05:00: Stool Occult Blood [Pending] Height (Feet): 5 Height (Inches): 6.00 Weight (Pounds): 170 Objective General Appearance: WD/WN, alert Neck: supple Cardiovascular: regular rhythm Respiratory/Chest: chest wall non-tender, lungs clear, normal breath sounds, no respiratory distress Abdomen: normal bowel sounds, non tender, soft, no organomegaly Neurologic: brand ambassador promotional model II-XII grossly normal, no motor/sensory deficits, alert, oriented x 3, responsive ROSA WILSON May 16, 2017 09:10
[2017-05-16] MEDS: Xarelto 10mg tab ORAL SCH (10:01)
[2017-05-16] MEDS: Lisinopril 20mg tab ORAL SCH (10:01)
[2017-05-16] MEDS: Aspirin Baby 81mg ORAL SCH (10:02)
[2017-05-16 11:44] VITALS: BP 142/59
[2017-05-16 15:58] VITALS: BP 131/58
[2017-05-16] MEDS ORDERED: Sorbitol Solution UD 30ml ORAL ONE (18:30)
[2017-05-16 20:00] VITALS: BP 151/65
[2017-05-16] MEDS: Atorvastatin 20mg tab ORAL SCH (20:11)
[2017-05-16] MEDS ORDERED: Iron Sucrose 100 MG in NS 55 ML IVPB SCH (21:00)
[2017-05-16] MEDS: Zoysn 3.37gm in D5W 110ml IVPB SCH (21:16)
[2017-05-17] VITALS (7 sets, daily range): BP systolic 122–147; BP diastolic 56–86
[2017-05-17] MEDS: metroNIDAZOLE 250mg tab ORAL SCH ×4 (00:12→18:13)
[2017-05-17] MEDS: Zoysn 3.37gm in D5W 110ml IVPB SCH ×3 (05:05→21:36)
[2017-05-17] MEDS: NovoLOG Insulin Flexpen SUBQ SCH ×4 (05:54→21:43)
[2017-05-17] MEDS: Repaglinide 0.5mg Tab ORAL SCH ×3 (05:54→16:30)
[2017-05-17] MEDS: Lisinopril 20mg tab ORAL SCH (08:58)
--- NOTE | 2017-05-17 09:06 | General Progress Note ---
Assessment/Plan Problem List: (1) Hyponatremia (2) E. coli UTI (urinary tract infection) ICD Codes: B96.20 - Unsp Escherichia coli as the cause of diseases classd elswhr; N39.0 - E. coli UTI (urinary tract infection) SNOMED: 158327754 (3) Diabetes ICD Codes: E11.9 - Diabetes SNOMED: 30852013 (4) CVA (cerebral vascular accident) ICD Codes: I63.9 - CVA (cerebral vascular accident) SNOMED: 771175685 (5) Hypertension ICD Codes: I10 - Hypertension SNOMED: 60774803 (6) Diarrhea ICD Codes: R19.7 - Diarrhea, unspecified SNOMED: 84774171 Qualifiers: Qualified Codes: A09 - Infectious gastroenteritis and colitis, unspecified (7) Dehydration ICD Codes: E86.0 - Dehydration SNOMED: 41331908 (8) Anemia ICD Codes: D64.9 - Anemia, unspecified SNOMED: 971543010 Qualifiers: Qualified Codes: D64.9 - Anemia, unspecified Status: stable, progressing Assessment/Plan ivf antidiarrheals pt now agrees to colonoscopy tomorrow Subjective ROS Limited/Unobtainable: No Constitutional: Reports: malaise, weakness HEENT: Reports: no symptoms Cardiovascular: Reports: no symptoms Respiratory: Reports: no symptoms Gastrointestinal/Abdominal: Reports: diarrhea Genitourinary: Reports: no symptoms Neurologic/Psychiatric: Reports: no symptoms Endocrine: Reports: no symptoms Hematologic/Lymphatic: Reports: anemia Allergies: Coded Allergies: PENICILLINS (Verified Allergy, Intermediate, Itching, 06/25/12) PROPOXYPHENE HCL (Verified Allergy, Intermediate, Itching, 06/25/12) TETRACYCLINE (Verified Allergy, Intermediate, Itching, 06/25/12) PROPOXYPHENE (Verified Allergy, Unknown, 06/25/12) TETRACYCLINES (Unverified Allergy, Unknown, 05/11/17) HYDROCODONE (Verified Adverse Reaction, Intermediate, GI UPSET, 05/05/16) SULFA (SULFONAMIDE ANTIBIOTICS) (Verified Adverse Reaction, Intermediate, GI UPSET, 05/05/16) All Systems: reviewed and negative except above Subjective still with diarrhea. cdiff negative. no cp/sob. mild abd pain. now agrees to colonoscopy. scheduled for tomorrow Objective Last 24 Hour Vital Signs Date Time Temp Pulse Resp B/P Pulse Ox O2 Delivery O2 Flow Rate FiO2 05/17/17 08:58 133/60 05/17/17 08:58 69 133/60 05/17/17 08:00 97.7 69 19 133/60 97 Room Air 05/17/17 04:00 98.0 78 20 142/75 96 Room Air 05/17/17 00:00 98.0 72 17 147/60 100 Room Air 05/16/17 21:54 86 20 Room Air 21 05/16/17 20:00 98.2 79 20 151/65 94 Room Air 05/16/17 15:58 98.0 68 20 131/58 98 Room Air 05/16/17 11:44 97.5 63 20 142/59 98 Room Air 05/16/17 10:02 65 124/57 05/16/17 10:01 124/57 Intake and Output 05/16/17 05/17/17 19:00 07:00 Intake Total 1200 ml Balance 1200 ml Intake Oral 1200 ml # Voids 3 # Bowel Movements 1 3 Height (Feet): 5 Height (Inches): 6.00 Weight (Pounds): 170 Objective General Appearance: WD/WN, alert Neck: supple Cardiovascular: regular rhythm Respiratory/Chest: chest wall non-tender, lungs clear, normal breath sounds, no respiratory distress Abdomen: normal bowel sounds, non tender, soft, no organomegaly 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
--- NOTE | 2017-05-17 10:16 | General Progress Note ---
Assessment/Plan Problem List: (1) Diarrhea ICD Codes: R19.7 - Diarrhea, unspecified SNOMED: 23845262 Qualifiers: Qualified Codes: A09 - Infectious gastroenteritis and colitis, unspecified (2) Anemia ICD Codes: D64.9 - Anemia, unspecified SNOMED: 125992860 Qualifiers: Qualified Codes: D64.9 - Anemia, unspecified Assessment/Plan iv iron plan EGD and colonoscopy on Thursday fu labs Subjective ROS Limited/Unobtainable: Yes Allergies: Coded Allergies: PENICILLINS (Verified Allergy, Intermediate, Itching, 06/25/12) PROPOXYPHENE HCL (Verified Allergy, Intermediate, Itching, 06/25/12) TETRACYCLINE (Verified Allergy, Intermediate, Itching, 06/25/12) PROPOXYPHENE (Verified Allergy, Unknown, 06/25/12) TETRACYCLINES (Unverified Allergy, Unknown, 05/11/17) HYDROCODONE (Verified Adverse Reaction, Intermediate, GI UPSET, 05/05/16) SULFA (SULFONAMIDE ANTIBIOTICS) (Verified Adverse Reaction, Intermediate, GI UPSET, 05/05/16) Subjective no event Objective Last 24 Hour Vital Signs Date Time Temp Pulse Resp B/P Pulse Ox O2 Delivery O2 Flow Rate FiO2 05/17/17 08:58 133/60 05/17/17 08:58 69 133/60 05/17/17 08:00 97.7 69 19 133/60 97 Room Air 05/17/17 04:00 98.0 78 20 142/75 96 Room Air 05/17/17 00:00 98.0 72 17 147/60 100 Room Air 05/16/17 21:54 86 20 Room Air 21 05/16/17 20:00 98.2 79 20 151/65 94 Room Air 05/16/17 15:58 98.0 68 20 131/58 98 Room Air 05/16/17 11:44 97.5 63 20 142/59 98 Room Air Intake and Output 05/16/17 05/17/17 19:00 07:00 Intake Total 1200 ml Balance 1200 ml Intake Oral 1200 ml # Voids 3 # Bowel Movements 1 3 Height (Feet): 5 Height (Inches): 6.00 Weight (Pounds): 170 General Appearance: alert EENT: normal ENT inspection Neck: supple Cardiovascular: normal rate Respiratory/Chest: lungs clear Abdomen: normal bowel sounds, non tender, soft Extremities: non-tender DANIELE AMBROSE May 17, 2017 10:16
[2017-05-17] MEDS ORDERED: Nulytely 4L ORAL ONE (17:00)
[2017-05-17] MEDS: D5NS 1,000 ML IV SCH (18:13)
[2017-05-17] MEDS: Atorvastatin 20mg tab ORAL SCH (21:36)
[2017-05-18] VITALS (10 sets, daily range): BP systolic 116–177; BP diastolic 53–84
[2017-05-18] MEDS: Repaglinide 0.5mg Tab ORAL SCH ×3 (05:57→17:11)
[2017-05-18] MEDS: metroNIDAZOLE 250mg tab ORAL SCH ×4 (05:57→17:11)
[2017-05-18] MEDS: Zoysn 3.37gm in D5W 110ml IVPB SCH ×3 (05:57→21:42)
[2017-05-18] MEDS: NovoLOG Insulin Flexpen SUBQ SCH ×4 (05:58→21:00)
[2017-05-18] MEDS: D5NS 1,000 ML IV SCH ×2 (06:31→21:01)
[2017-05-18] MEDS: Fleet's Enema 133ml RECTAL SCH ×2 (07:45→08:38)
--- NOTE | 2017-05-18 07:47 | General Progress Note ---
Assessment/Plan Problem List: (1) Hyponatremia (2) E. coli UTI (urinary tract infection) ICD Codes: B96.20 - Unsp Escherichia coli as the cause of diseases classd elswhr; N39.0 - E. coli UTI (urinary tract infection) SNOMED: 080126444 (3) Diabetes ICD Codes: E11.9 - Diabetes SNOMED: 90733136 (4) CVA (cerebral vascular accident) ICD Codes: I63.9 - CVA (cerebral vascular accident) SNOMED: 661615237 (5) Hypertension ICD Codes: I10 - Hypertension SNOMED: 65485402 (6) Diarrhea ICD Codes: R19.7 - Diarrhea, unspecified SNOMED: 25774945 Qualifiers: Qualified Codes: A09 - Infectious gastroenteritis and colitis, unspecified (7) Dehydration ICD Codes: E86.0 - Dehydration SNOMED: 83845844 (8) Anemia ICD Codes: D64.9 - Anemia, unspecified SNOMED: 944917902 Qualifiers: Qualified Codes: D64.9 - Anemia, unspecified Status: stable, not improved Assessment/Plan ivf antidiarrheals bowel prep for colonoscopy today. Subjective ROS Limited/Unobtainable: No Constitutional: Reports: malaise, weakness HEENT: Reports: no symptoms Cardiovascular: Reports: no symptoms Respiratory: Reports: no symptoms Gastrointestinal/Abdominal: Reports: diarrhea Genitourinary: Reports: no symptoms Neurologic/Psychiatric: Reports: no symptoms Endocrine: Reports: no symptoms Hematologic/Lymphatic: Reports: anemia Allergies: Coded Allergies: PENICILLINS (Verified Allergy, Intermediate, Itching, 06/25/12) PROPOXYPHENE HCL (Verified Allergy, Intermediate, Itching, 06/25/12) TETRACYCLINE (Verified Allergy, Intermediate, Itching, 06/25/12) PROPOXYPHENE (Verified Allergy, Unknown, 06/25/12) TETRACYCLINES (Unverified Allergy, Unknown, 05/11/17) HYDROCODONE (Verified Adverse Reaction, Intermediate, GI UPSET, 05/05/16) SULFA (SULFONAMIDE ANTIBIOTICS) (Verified Adverse Reaction, Intermediate, GI UPSET, 05/05/16) All Systems: reviewed and negative except above Subjective still with diarrhea. getting bowel prep. stool not clear yet. Objective Last 24 Hour Vital Signs Date Time Temp Pulse Resp B/P Pulse Ox O2 Delivery O2 Flow Rate FiO2 05/18/17 04:00 97.9 57 18 116/53 94 Room Air 05/17/17 23:54 98.6 65 18 134/62 97 Room Air 05/17/17 20:10 88 19 Room Air 21 05/17/17 20:00 98.2 66 20 140/65 94 Room Air 05/17/17 16:00 98.3 71 18 122/56 Room Air 05/17/17 12:00 98.2 67 19 137/86 98 Room Air 05/17/17 08:58 133/60 05/17/17 08:58 69 133/60 05/17/17 08:40 78 20 Room Air 21 05/17/17 08:00 97.7 69 19 133/60 97 Room Air Intake and Output 05/17/17 05/18/17 19:00 07:00 Intake Total 300 ml 662.5 ml Balance 300 ml 662.5 ml Intake Oral 300 ml IV Total 662.5 ml # Voids 2 2 # Bowel Movements 2 Height (Feet): 5 Height (Inches): 5.00 Weight (Pounds): 170 Objective General Appearance: WD/WN, alert Neck: supple Cardiovascular: regular rhythm Respiratory/Chest: chest wall non-tender, lungs clear, normal breath sounds, no respiratory distress Abdomen: normal bowel sounds, non tender, soft, no organomegaly Neurologic: weigh box tender II-XII grossly normal, no motor/sensory deficits, alert, oriented x 3, responsive ROSA WILSON May 18, 2017 07:47
[2017-05-18] MEDS ORDERED: Nulytely 4L ORAL ONE (08:00)
[2017-05-18] MEDS: Lisinopril 20mg tab ORAL SCH (08:39)
--- NOTE | 2017-05-18 10:45 | General Progress Note ---
Assessment/Plan Assessment/Plan Assessment - dirrrhea - resolved - LLQ abd TTP - improved - abdominal distention - likely due to presumed colitis - Anemia - declines most of colonoscopy prep - Heme (+) stools - understands cancer on differential Recommendations - check Stools O&P - empiric flagyl trial - EGD/Colon today, although poor prep and suboptimal result possible Subjective Allergies: Coded Allergies: PENICILLINS (Verified Allergy, Intermediate, Itching, 06/25/12) PROPOXYPHENE HCL (Verified Allergy, Intermediate, Itching, 06/25/12) TETRACYCLINE (Verified Allergy, Intermediate, Itching, 06/25/12) PROPOXYPHENE (Verified Allergy, Unknown, 06/25/12) TETRACYCLINES (Unverified Allergy, Unknown, 05/11/17) HYDROCODONE (Verified Adverse Reaction, Intermediate, GI UPSET, 05/05/16) SULFA (SULFONAMIDE ANTIBIOTICS) (Verified Adverse Reaction, Intermediate, GI UPSET, 05/05/16) Subjective Feels OK tolerating po liquids refused most of Gol[place] last night was told by RN and understood that her refusal could materiality affect the GI procedure today offered two enemas this am - again refused understands that GI malignancy on differential and it may be missed with poor prep Objective Last 24 Hour Vital Signs Date Time Temp Pulse Resp B/P Pulse Ox O2 Delivery O2 Flow Rate FiO2 05/18/17 09:00 66 19 Room Air 21 05/18/17 08:39 140/58 05/18/17 08:38 69 140/58 05/18/17 08:00 98.2 69 20 140/58 96 Room Air 05/18/17 04:00 97.9 57 18 116/53 94 Room Air 05/17/17 23:54 98.6 65 18 134/62 97 Room Air 05/17/17 20:10 88 19 Room Air 21 05/17/17 20:00 98.2 66 20 140/65 94 Room Air 05/17/17 16:00 98.3 71 18 122/56 Room Air 05/17/17 12:00 98.2 67 19 137/86 98 Room Air Intake and Output 05/17/17 05/18/17 19:00 07:00 Intake Total 300 ml 662.5 ml Balance 300 ml 662.5 ml Intake Oral 300 ml IV Total 662.5 ml # Voids 2 2 # Bowel Movements 2 Height (Feet): 5 Height (Inches): 5.00 Weight (Pounds): 170 Objective WDWN AA woman NCAT Supple CTA RRR abd soft, non tender, mildly distended, no mass no edema non focal neuro MIRNA LEDEZMA May 18, 2017 10:45
--- NOTE | 2017-05-18 12:16 | Anethesia Preoperative Eval ---
Anesthesia Pre-op PMH/ROS General Date of Evaluation: May 18, 2017 Time of Evaluation: 12:14 Anesthesiologist: samantha ASA Score: ASA 3 Mallampati Score Class I : Soft palate, uvula, fauces, pillars visible Class II: Soft palate, uvula, fauces visible Class III: Soft palate, base of uvula visible Class IV: Only hard plate visible Mallampati Classification: Class II Surgeon: simone Diagnosis: anemia Surgical Procedure: gd/colonoscopy Social History: smoking - nonsmoker Family History: no anesthesia problems Allergies: Coded Allergies: PENICILLINS (Verified Allergy, Intermediate, Itching, 06/25/12) PROPOXYPHENE HCL (Verified Allergy, Intermediate, Itching, 06/25/12) TETRACYCLINE (Verified Allergy, Intermediate, Itching, 06/25/12) PROPOXYPHENE (Verified Allergy, Unknown, 06/25/12) TETRACYCLINES (Unverified Allergy, Unknown, 05/11/17) HYDROCODONE (Verified Adverse Reaction, Intermediate, GI UPSET, 05/05/16) SULFA (SULFONAMIDE ANTIBIOTICS) (Verified Adverse Reaction, Intermediate, GI UPSET, 05/05/16) Medications: see eMAR Past Medical History Cardiovascular: Reports: CAD, HTN Neurologic/Psychiatric: Reports: CVA, dementia, depression/anxiety Endocrine: Reports: DM Musculoskeletal/Integumentary: Reports: OA PSxH Narrative: joint replacement Anesthesia Pre-op Phys. Exam Physician Exam Last Vital Signs Date Time Temp Pulse Resp B/P Pulse Ox O2 Delivery O2 Flow Rate FiO2 05/18/17 09:00 66 19 Room Air 21 05/18/17 08:39 140/58 05/18/17 08:00 98.2 96 Constitutional: NAD Neurologic: other Cardiovascular: RRR Respiratory: CTA Gastrointestinal: S/NT/ND Airway Exam Mallampati Score: Class II MO: full Neck: supple TMD: 2fb ROM: full Teeth: missing Anesthesia Pre-op A/P Labs Labs Test 05/16/17 05:00 Stool Occult Blood Positive (NEGATIVE) Risk Assessment & Plan Assessment: asa3 Plan: mac Status Change Before Surgery: No Pre-Antibiotics Drug: SONYA Forde May 18, 2017 12:16
--- NOTE | 2017-05-18 12:27 | Pre-Procedure Note/Attestation ---
Pre-Procedure Note/Attestation Complete Prior to Procedure Planned Procedure: not applicable Procedure Narrative: EGD/Colon Indications for Procedure Pre-Operative Diagnosis: anemia, abnormal CT Attestation I attest that I discussed the nature of the procedure; its benefits; risks and complications; and alternatives (and the risks and benefits of such alternatives ), prior to the procedure, with the patient (or the patient's legal loss prevention representative). I attest that, if there was a reasonable possibility of needing a blood transfusion, the patient (or the patient's legal loss prevention representative) was given the [facility] standardized written summary, pursuant to the Michael Janet Blood Safety Act ([place] Health and Safety Code # 1645, as amended). I attest that I re-evaluated the patient just prior to the surgery and that there has been no change in the patient's H&P, except as documented below: MIRNA LEDEZMA May 18, 2017 12:27
[2017-05-18] MEDS ORDERED: Lidocaine 1% MPF 10mg/ml 5ml ONE (12:30)
[2017-05-18] MEDS ORDERED: Propofol 10mg/ml 20ml IV ONE (12:30)
[2017-05-18] MEDS ORDERED: Atropine Inj 1mg/10ml Syr IV PRN (13:15)
[2017-05-18] MEDS ORDERED: DiphenhydrAMINE 50mg/ml Inj IVP PRN (13:15)
[2017-05-18] MEDS ORDERED: Midazolam 2mg/2ml Inj IVP PRN (13:15)
[2017-05-18] MEDS ORDERED: Hydromorphone 0.5mg/0.5ml inj IVP PRN (13:15)
--- NOTE | 2017-05-18 13:20 | Immediate Post-Op Evaluation ---
Immediate Post-Op Evalulation Immediate Post-Op Evalulation Procedure: egd/colonoscopy Date of Evaluation: May 18, 2017 Time of Evaluation: 13:20 IV Fluids: 200ml 0.9ns Blood Products: none Estimated Blood Loss: negligible Blood Pressure Systolic: 136 Blood Pressure Diastolic: 70 Pulse Rate: 71 Respiratory Rate: 18 O2 Sat by Pulse Oximetry: 100 Temperature (Fahrenheit): 98.8 Pain Score (1-10): 0 Nausea: No Vomiting: No Complications none Patient Status: awake, reacts, patent Hydration Status: adequate Drug: SONYA Forde May 18, 2017 13:20
--- NOTE | 2017-05-18 13:25 | 48 Hour Post Anesthesia Eval ---
Post Anesthesia Evaluation Procedure: egd/colonoscopy Date of Evaluation: May 18, 2017 Time of Evaluation: 13:25 Blood Pressure Systolic: 126 0: 71 Pulse Rate: 74 Respiratory Rate: 18 Temperature (Fahrenheit): 98.8 O2 Sat by Pulse Oximetry: 100 Airway: patent Nausea: No Vomiting: No Pain Intensity: 0 Hydration Status: adequate Cardiopulmonary Status: stable Mental Status/LOC: patient returned to baseline Post-Anesthesia Complications: none Follow-up care needed: N/A SONYA CARLSON May 18, 2017 13:25
[2017-05-18] MEDS ORDERED: Iron Sucrose 100 MG in NS 55 ML IVPB SCH (21:00)
[2017-05-18] MEDS: Atorvastatin 20mg tab ORAL SCH (21:12)
--- NOTE | 2017-05-18 21:37 | Endoscopy Procedure Note ---
Endoscopy Procedure Note Indication for Procedure: Heme (+) Procedures Performed: EGD, colonoscopy Operative Findings/Diagnosis: erosive gastriris, diverticulosis, poor prep Specimen: yes Pt Tolerated Procedure Well: Yes Estimated Blood Loss: none Anesthesia: moderate sedation Medication Given: see anesthesia record Implant(s) used?: No 50 yrs or older w/o bx or poly: Not Applicable 10yrs. F/U not recommended: Not Applicable If not recommended, why?: MIRNA LEDEZMA May 18, 2017 21:37
--- NOTE | 2017-05-18 21:39 | Brief Operative Note ---
Immediate Post Operative Note Operative Note Chief Complaint: Heme (+) Pre-op Diagnosis: anemia, abnormal CT Procedure: EGD/bx, colon/bx Post-op Diagnosis: erosive lesley, tics, one colon polyp - bx'd Surgeon: kiran Anesthesia: MAC, moderate sedation Specimen: yes Complications: none Condition: stable Estimated Blood Loss: none Drains: none Implant(s) used?: No MIRNA LEDEZMA May 18, 2017 21:39
[2017-05-19 03:45] VITALS: BP 126/59
--- NOTE | 2017-05-19 04:45 | Operative Note - Dictated ---
DATE OF OPERATION: 05/18/2017 PROCEDURE: Upper gastroendoscopy with biopsy as well as colonoscopy with biopsy. SURGEON: Salena Reddy M.D. ANESTHESIA: Please see the separate anesthesiologist notes for details. PRE-ENDOSCOPIC DIAGNOSIS: Heme-positive stools and anemia. POST-ENDOSCOPIC DIAGNOSIS: 1. Erosive gastritis with blood seen throughout the stomach. 2. Status post random biopsy of the duodenum and the antrum. 3. [id number] left-sided diverticulosis. 4. Status post random biopsy of the right colon, left colon, and rectosigmoid colon. 5. Diminutive polyp in the sigmoid colon status post biopsy removal. 6. Poor preparation precluded at proper screening for this patient. She should be advised to return for a repeat exam at a later date. PROCEDURE IN DETAIL: The procedure, its risks, indications, alternatives, and possible complications were explained to the patient and informed consent was obtained. The patient was then sedated. A diagnostic upper endoscope was introduced through the oropharynx and advanced to the duodenum without difficulty. The endoscope was then gradually withdrawn and the mucosa was examined carefully. Findings were as listed above. The rectal exam was then done. The colonoscope was introduced in the rectum and advanced to the cecum. The colonoscope was then gradually withdrawn and the mucosa was examined carefully. Examination of the mucosa revealed findings listed above. The colonoscope was removed and the patient was sent to recovery in good condition. COMPLICATIONS: None. RECOMMENDATIONS: 1. Follow up biopsy results. 2. Resume oral diet. 3. The patient should be encouraged to have a screening colonoscopy at a later date and better GI preparation. Salena Reddy M.D. DR: RAYO JOB#: [id number] CC: NICOLE
[2017-05-19] MEDS: Zoysn 3.37gm in D5W 110ml IVPB SCH ×2 (05:31→13:40)
[2017-05-19] MEDS: metroNIDAZOLE 250mg tab ORAL SCH ×3 (05:33→12:18)
[2017-05-19] MEDS: NovoLOG Insulin Flexpen SUBQ SCH ×2 (06:17→12:18)
[2017-05-19] MEDS: Repaglinide 0.5mg Tab ORAL SCH ×2 (06:26→12:18)
[2017-05-19 08:00] VITALS: BP 130/57
[2017-05-19] MEDS: D5NS 1,000 ML IV SCH (09:11)
[2017-05-19] MEDS: Lisinopril 20mg tab ORAL SCH (09:12)
[2017-05-19 12:00] VITALS: BP 148/64
--- NOTE | 2017-05-19 16:47 | General Progress Note ---
Assessment/Plan Assessment/Plan Assessment - dirrrhea - resolved - LLQ abd TTP - improved - abdominal distention - s/p EGD/Colon - Anemia - Heme (+) stools - possibly due to erosive gastritis Recommendations - check Stools O&P - still pending - empiric flagyl trial - patient and DPOA advised to f/u with me as outpatient - patient and DPOA advised that pt needs repeat colon with good prep for proper screening Subjective Allergies: Coded Allergies: PENICILLINS (Verified Allergy, Intermediate, Itching, 06/25/12) PROPOXYPHENE HCL (Verified Allergy, Intermediate, Itching, 06/25/12) TETRACYCLINE (Verified Allergy, Intermediate, Itching, 06/25/12) PROPOXYPHENE (Verified Allergy, Unknown, 06/25/12) TETRACYCLINES (Unverified Allergy, Unknown, 05/11/17) HYDROCODONE (Verified Adverse Reaction, Intermediate, GI UPSET, 05/05/16) SULFA (SULFONAMIDE ANTIBIOTICS) (Verified Adverse Reaction, Intermediate, GI UPSET, 05/05/16) Subjective Feels OK denies abd pain d/w patient and DPOA Yuko re visual results path pending Objective Last 24 Hour Vital Signs Date Time Temp Pulse Resp B/P Pulse Ox O2 Delivery O2 Flow Rate FiO2 05/19/17 12:00 97.3 61 20 148/64 95 Room Air 05/19/17 09:12 130/57 05/19/17 09:12 81 130/57 05/19/17 08:00 97.3 81 20 130/57 97 Room Air 05/19/17 03:45 98.2 76 19 126/59 100 Room Air 05/18/17 23:29 97.0 66 20 122/61 96 Room Air 05/18/17 20:15 71 18 Room Air 21 05/18/17 20:00 98.1 77 16 124/65 Room Air Intake and Output 05/18/17 05/19/17 19:00 07:00 Intake Total 200 ml 307.5 ml Balance 200 ml 307.5 ml Intake Oral 200 ml IV Total 307.5 ml # Voids 6 5 # Bowel Movements 3 1 Height (Feet): 5 Height (Inches): 5.00 Weight (Pounds): 170 Objective WDWN AA woman NCAT Supple CTA RRR abd soft, non tender, mildly distended, no mass no edema non focal neuro MIRNA LEDEZMA May 19, 2017 16:47
[2017-05-19] MEDS ORDERED: Tubing IV Secondary IV ONE (17:03)
--- NOTE | 2017-05-19 22:30 | Discharge Summary ---
DATE OF ADMISSION: 05/12/2017 DATE OF DISCHARGE: 05/19/2017 ADMISSION DIAGNOSES: 1. Intractable diarrhea. 2. Dehydration. 3. Stroke. 4. Hypertension. 5. Diabetes. 6. Deep vein thrombosis. DISCHARGE DIAGNOSES: 1. Intractable diarrhea. 2. Dehydration. 3. Stroke. 4. Hypertension. 5. Diabetes. 6. Deep vein thrombosis. 7. Gastritis. 8. Gastroesophageal reflux disease. HOSPITAL COURSE: This is a pleasant female who presented with intractable diarrhea for one to two weeks. She was admitted initially thought to have C. difficile, but C. difficile returned back negative. She continued to have diarrhea. She was hydrated for dehydration. Stool cultures were unremarkable. The patient was noted to be iron deficient. GI consultation was obtained. It was recommended that the patient undergo a colonoscopy. The patient refused. She did have an upper endoscopy that did show gastritis and GERD. The patient was noted to be on multiple laxatives. These will be discontinued upon admission. The diarrhea although now resolved and was improving. The patient monitored closely at the [facility] for persistent diarrhea. She will be re-offered a colonoscopy if symptoms persist. She did have a CAT scan that was unremarkable. DISCHARGE MEDICATIONS: Please see discharge medication list for discharge medications. DIET: Regular diet. ACTIVITY: Ad-tico. FOLLOWUP: The patient will follow up in one to two days at the snf facility. Tam Wall M.D. DR: ELISE JOB#: [id number] CC:
== END 2017-05-19 17:04 | DRG 391 ==
LOC: EDBD 21:17 → EMR 23:23 → 4E 05-12 01:51 → EDBEDREQ 05-12 02:50
PROC: 0DBN8ZZ Excision of Sigmoid Colon, Via Natural or Artificial Opening Endoscopic (ICD-10-PCS; principal; 2017-05-18 12:32)
PROC: 0DB98ZX Excision of Duodenum, Via Natural or Artificial Opening Endoscopic, Diagnostic (ICD-10-PCS; principal; 2017-05-18 12:32)
PROC: 0DBF8ZX Excision of Right Large Intestine, Via Natural or Artificial Opening Endoscopic, Diagnostic (ICD-10-PCS; principal; 2017-05-18 12:32)
PROC: 0DBG8ZX Excision of Left Large Intestine, Via Natural or Artificial Opening Endoscopic, Diagnostic (ICD-10-PCS; principal; 2017-05-18 12:32)
PROC: 0DBN8ZX Excision of Sigmoid Colon, Via Natural or Artificial Opening Endoscopic, Diagnostic (ICD-10-PCS; principal; 2017-05-18 12:32)
PROC: 0DB68ZX Excision of Stomach, Via Natural or Artificial Opening Endoscopic, Diagnostic (ICD-10-PCS; principal; 2017-05-18 12:32)
DX: A09 Infectious gastroenteritis and colitis, unspecified (principal); K29.01 Acute gastritis with bleeding; N39.0 Urinary tract infection, site not specified; E86.0 Dehydration; E87.1 Hypo-osmolality and hyponatremia; K29.70 Gastritis, unspecified, without bleeding; D64.9 Anemia, unspecified; B96.20 Unspecified Escherichia coli [E. coli] as the cause of diseases classified elsewhere; Z16.12 Extended spectrum beta lactamase (ESBL) resistance; Z86.73 Personal history of transient ischemic attack (TIA), and cerebral infarction without residual deficits; I10 Essential (primary) hypertension; Z86.718 Personal history of other venous thrombosis and embolism; Z79.01 Long term (current) use of anticoagulants; K21.9 Gastro-esophageal reflux disease without esophagitis; M19.90 Unspecified osteoarthritis, unspecified site; F17.200 Nicotine dependence, unspecified, uncomplicated; K57.90 Diverticulosis of intestine, part unspecified, without perforation or abscess without bleeding; Z88.6 Allergy status to analgesic agent; Z88.0 Allergy status to penicillin; Z88.2 Allergy status to sulfonamides; Z88.8 Allergy status to other drugs, medicaments and biological substances; K63.5 Polyp of colon
CPT/HCPCS: 36415; 74176; 80053; 81003; 82270; 82962; 83540; 83550; 83690; 84443; 85025; 87045; 87081; 87086; 87181; 87324; 94003; 94150; 94664; J1815

== ENCOUNTER 2017-07-22 23:14 | Emergency (ER) | payer MEDICARE, MEDICAID ==
[~2017-07-22] VITALS: Ht 167.6 cm; Wt 77.1 kg
--- NOTE | 2017-07-22 23:21 | Emergency Room Report ---
History of Present Illness General Chief Complaint: Female Urogenital Problems Source: Patient, Medical Record Present Illness HPI Is a 77-year-old female coming [facility]. She has multiple medical problem including schizophrenia. She presents with chief complaint of dysuria. Onset for last 4 day. Also mild frequency. No fever chills no nausea no vomiting. She has a history of ESBL Escherichia coli infection. Allergies: Coded Allergies: PENICILLINS (Verified Allergy, Intermediate, Itching, 06/25/12) PROPOXYPHENE HCL (Verified Allergy, Intermediate, Itching, 06/25/12) TETRACYCLINE (Verified Allergy, Intermediate, Itching, 06/25/12) PROPOXYPHENE (Verified Allergy, Unknown, 06/25/12) TETRACYCLINES (Unverified Allergy, Unknown, 05/11/17) HYDROCODONE (Verified Adverse Reaction, Intermediate, GI UPSET, 05/05/16) SULFA (SULFONAMIDE ANTIBIOTICS) (Verified Adverse Reaction, Intermediate, GI UPSET, 05/05/16) Patient History Past Medical History: see triage record, old chart reviewed, psych hx Past Surgical History: other Pertinent Family History: none Social History: Denies: smoking Now: No Immunizations: other Reviewed Nursing Documentation: PMH: Agreed, PSxH: Agreed Nursing Documentation-PMH Past Medical History: No History, Except For Hx Cardiac Problems: Yes - anemia, dysphagia, hypokalemia Hx Hypertension: Yes Hx Diabetes: Yes - Type 2 Hx Cancer: No Hx Gastrointestinal Problems: No - Gastritis, GERD Hx Neurological Problems: No - DVT of left leg, Dysphasia Hx Cerebrovascular Accident: Yes Hx Dementia: Yes 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 Hx Memory Loss: Yes - short term Hx Speech Problem: No Hx Dysphasia: Yes Hx Weakness: Yes Review of Systems Eye: Denies: eye pain, blurred vision ENT: Denies: ear pain, nose congestion, throat swelling Respiratory: Denies: cough, shortness of breath Cardiovascular: Denies: chest pain, palpitations Gastrointestinal: Denies: abdominal pain, diarrhea, nausea, vomiting Genitourinary: Reports: dysuria Musculoskeletal: Denies: back pain, joint pain Skin: Denies: rash Neurological: Denies: headache, numbness Endocrine: Denies: increased thirst, increased urine Hematologic/Lymphatic: Denies: easy bruising All Other Systems: negative except mentioned in HPI Physical Exam Vital Signs Date Time Temp Pulse Resp B/P (MAP) Pulse Ox O2 Delivery O2 Flow Rate FiO2 07/22/17 23:09 98.8 68 14 128/64 98 Room Air vitals normal Sp02 EP Interpretation: reviewed, normal General Appearance: well appearing, no apparent distress, alert Head: normocephalic, atraumatic Eyes: bilateral eye PERRL, bilateral eye EOMI ENT: hearing grossly normal, normal pharynx Neck: full range of motion, supple, no meningismus Respiratory: chest non-tender, lungs clear, normal breath sounds Cardiovascular #1: regular rate, rhythm, no murmur Gastrointestinal: normal bowel sounds, non tender, no mass, no organomegaly, no bruit, non-distended Musculoskeletal: back normal, normal range of motion Psychiatric: mood/affect normal Skin: warm/dry Medical Decision Making Diagnostic Impression: Primary Impression: UTI (lower urinary tract infection) ER Course Patient presents with UTI. She grew out Escherichia coli in the past. Sensitive to Macrobid. No evidence of sepsis, pyelonephritis or toxicity. We' ll discharge home. I gave her a dose of Invanz here. Last Vital Signs Date Time Temp Pulse Resp B/P (MAP) Pulse Ox O2 Delivery O2 Flow Rate FiO2 07/22/17 23:09 98.8 68 14 128/64 98 Room Air Status: improved Disposition: XFER SNF Condition: Stable Scripts Nitrofurantoin Monohyd/M-Cryst (Nitrofurantoin [place]-Mcr 100 mg) 100 Mg Capsule 100 MG ORAL Q12H, #14 CAP Prov: AMADOR JEWELL M.D. 07/23/17 Patient Instructions: Urinary Tract Infection Additional Instructions: Followup with your DrChica in 2-3 days. Return if symptom worsen. AMADOR JEWELL M.D. Jul 22, 2017 23:21
[2017-07-22] MEDS ORDERED: Ertapenem 1 GM in NS 55 ML IV ONE (23:30)
[2017-07-22 23:36] LABS: BASOPHILS % (AUTO) 1.1 % (0.0-2.0); EOSINOPHILS % (AUTO) 1.9 % (0.0-3.0); LYMPHOCYTES % (AUTO) 17.7 % (20.0-45.0); MEAN CORPUSCULAR HEMOGLOBIN 22.7 PG (27.0-31.0); MEAN CORPUSCULAR HGB CONC 28.4 G/DL (32.0-36.0); MEAN CORPUSCULAR VOLUME 80 FL (80-99); MEAN PLATELET VOLUME 6.8 FL (6.5-10.1); MONOCYTES % (AUTO) 6.1 % (1.0-10.0); NEUTROPHILS % (AUTO) 73.2 % (45.0-75.0); PLATELET COUNT 316 K/UL (150-450); RED BLOOD COUNT 3.65 M/UL (4.20-5.40); RED CELL DISTRIBUTION WIDTH 16.4 % (11.6-14.8); WHITE BLOOD COUNT 12.8 K/UL (4.8-10.8)
[2017-07-22 23:45] VITALS: BP 151/59
[2017-07-22 23:50] LABS: APPEARANCE,URINE CLOUDY; KETONES,URINE NEGATIVE (NEGATIVE); LEUKOCYTE ESTERASE ,URINE 3+ (NEGATIVE); NITRITE,URINE POSITIVE (NEGATIVE); PH,URINE 8 (4.5-8.0); PROTEIN,URINE 3+ (NEGATIVE); UROBILINOGEN,URINE NORMAL MG/DL (0.0-1.0)
[2017-07-22 23:54] LABS: ANION GAP 8 (5-15); CALCIUM 9.9 MG/DL (8.5-10.1); CARBON DIOXIDE 26 MMOL/L (21-32); CHLORIDE 99 MMOL/L (98-107); CREATININE 1.3 MG/DL (0.55-1.30); POTASSIUM 4.7 MMOL/L (3.5-5.1); SODIUM 132 MMOL/L (136-145)
[2017-07-23] MEDS ORDERED: Ertapenem (INVanz) 1gm Inj ONE (00:19)
[2017-07-23 00:29] LABS: BACTERIA,URINE MODERATE /HPF; SQUAMOUS EPITHELIAL CELL,UR MODERATE /LPF (NONE/OCC); WBC,URINE TNTC /HPF (0 - 2)
[2017-07-23] MEDS ORDERED: MACROBID100 MG ORAL (00:56)
[2017-07-23 01:35] VITALS: BP 119/48
[2017-07-23 01:38] VITALS: BP 119/48
== END 2017-07-23 00:51 ==
LOC: EDBD 23:14 → EMR 23:44
DX: N39.0 Urinary tract infection, site not specified (principal); R30.0 Dysuria; F20.9 Schizophrenia, unspecified; Z86.19 Personal history of other infectious and parasitic diseases; Z88.0 Allergy status to penicillin; Z88.2 Allergy status to sulfonamides; D64.9 Anemia, unspecified; R13.10 Dysphagia, unspecified; E87.6 Hypokalemia; E11.9 Type 2 diabetes mellitus without complications; K29.70 Gastritis, unspecified, without bleeding; K21.9 Gastro-esophageal reflux disease without esophagitis; R47.02 Dysphasia; Z86.73 Personal history of transient ischemic attack (TIA), and cerebral infarction without residual deficits; F03.90 Unspecified dementia, unspecified severity, without behavioral disturbance, psychotic disturbance, mood disturbance, and anxiety; R53.1 Weakness
CPT/HCPCS: 36415; 80048; 81001; 85025; 87086; 87181; 96360; 99284; J1335

== ENCOUNTER 2017-08-04 21:40 | Inpatient (IN) | payer MEDICARE, MEDICAID ==
[~2017-08-04] VITALS: Ht 170.2 cm; Wt 86.2 kg
[~2017-08-04 21:40] MED LIST changes: +MACROBID100 MG ORAL
[2017-08-05] VITALS (8 sets, daily range): BP systolic 129–144; BP diastolic 53–83
[2017-08-05 00:22] LABS: MEAN CORPUSCULAR HEMOGLOBIN 23.5 PG (27.0-31.0); MEAN CORPUSCULAR HGB CONC 29.5 G/DL (32.0-36.0); MEAN CORPUSCULAR VOLUME 79 FL (80-99); PLATELET COUNT 296 K/UL (150-450); RED BLOOD COUNT 2.88 M/UL (4.20-5.40); RED CELL DISTRIBUTION WIDTH 17.8 % (11.6-14.8)
[2017-08-05 00:32] LABS: PROTHROMBIN TIME 10.7 SEC (9.30-11.50)
[2017-08-05 00:39] LABS: ALANINE AMINOTRANSFERASE 16 U/L (12-78); ALBUMIN/GLOBULIN RATIO 0.7 (1.0-2.7); ANION GAP 9 mmol/L (5-15); ASPARTATE AMINO TRANSFERASE 28 U/L (15-37); CALCIUM 9.7 MG/DL (8.5-10.1); CARBON DIOXIDE 26 MMOL/L (21-32); CHLORIDE 102 MMOL/L (98-107); CREATININE 1.6 MG/DL (0.55-1.30); LIPASE 241 U/L (73-393); POTASSIUM 5.6 MMOL/L (3.5-5.1); SODIUM 137 MMOL/L (136-145); TOTAL PROTEIN 8.5 G/DL (6.4-8.2)
[2017-08-05] MEDS ORDERED: DOCUSATE SODIU100 MG ORAL (00:43)
[2017-08-05] MEDS ORDERED: CRANBERRY400 MG PO (00:43)
[2017-08-05] MEDS ORDERED: DULCOLAX10 MG RC (01:15)
[2017-08-05] MEDS ORDERED: TRADJENTA5 MG PO (01:15)
[2017-08-05] MEDS ORDERED: MILK OF MA400 MG/51 ORAL (01:15)
[2017-08-05] MEDS ORDERED: RISPERDAL2 MG ORAL (01:15)
[2017-08-05 01:45] LABS: BAND NEUTROPHILS % (MANUAL) 0 % (0-8); BASOPHILS % (MANUAL) 0 % (0-2); EOSINOPHILS % (MANUAL) 2 % (0-3); LYMPHOCYTES % (MANUAL) 31 % (20-45); NEUTROPHILS % (MANUAL) 56 % (45-75); PLATELET ESTIMATE ADEQUATE; PLATELET MORPHOLOGY NORMAL; TOTAL CELLS COUNTED 100
--- NOTE | 2017-08-05 03:47 | Emergency Room Report ---
History of Present Illness General Chief Complaint: Vaginal Source: Patient, Medical Record Present Illness HPI Patient is 77-year-old female brought in by EMS after increased bleeding from her rectal area. The patient had prior history of proctocolitis. She been sent in for further evaluation of pain. Patient prior history of psychosis. History of markedly limited by patient's mental status. Allergies: Coded Allergies: PENICILLINS (Verified Allergy, Intermediate, Itching, 06/25/12) PROPOXYPHENE HCL (Verified Allergy, Intermediate, Itching, 06/25/12) TETRACYCLINE (Verified Allergy, Intermediate, Itching, 06/25/12) PROPOXYPHENE (Verified Allergy, Unknown, 06/25/12) TETRACYCLINES (Unverified Allergy, Unknown, 05/11/17) HYDROCODONE (Verified Adverse Reaction, Intermediate, GI UPSET, 05/05/16) SULFA (SULFONAMIDE ANTIBIOTICS) (Verified Adverse Reaction, Intermediate, GI UPSET, 05/05/16) Patient History Past Medical History: see triage record Last Menstrual Period: n/a Reviewed Nursing Documentation: PMH: Agreed, PSxH: Agreed Nursing Documentation-PMH Past Medical History: No History, Except For Hx Hypertension: Yes Hx Diabetes: Yes - dm2 Hx Cancer: No Hx Neurological Problems: No - DVT of left leg, Dysphasia Hx Cerebrovascular Accident: Yes Hx Dementia: Yes 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 Hx Memory Loss: Yes - short term Hx Speech Problem: No Hx Dysphasia: Yes Hx Weakness: Yes Review of Systems All Other Systems: negative except mentioned in HPI Physical Exam Vital Signs Date Time Temp Pulse Resp B/P (MAP) Pulse Ox O2 Delivery O2 Flow Rate FiO2 08/04/17 21:32 98.2 79 18 110/74 96 Room Air Sp02 EP Interpretation: reviewed, normal General Appearance: normal inspection, well appearing, no apparent distress, alert, GCS 15 Head: atraumatic ENT: normal ENT inspection, hearing grossly normal, normal voice Neck: normal inspection, full range of motion, supple, no bony tend Respiratory: normal inspection, lungs clear, normal breath sounds, no respiratory distress, no retraction, no wheezing Cardiovascular #1: regular rate, rhythm, no edema Gastrointestinal: normal inspection, normal bowel sounds, non tender, soft, no guarding, no hernia Genitourinary: no CVA tenderness Musculoskeletal: normal inspection, back normal, normal range of motion Neurologic: normal inspection, alert, oriented x3, responsive, veterinarian laboratory animal care III-XII nml as tested, speech normal Skin: normal inspection, normal color, no rash Medical Decision Making Diagnostic Impression: Primary Impression: Anemia Additional Impression: Psychiatric disorder ER Course Patient presented for abdominal pain. Differential diagnoses included ischemic bowel, appendicitis, perforated viscus, abdominal aortic aneurysm, inferior myocardial infarction, viral gastroenteritis. Because of complexity of patient' s case laboratory testing and imaging studies were ordered. The patient was noted to have evidence of anemia with initial hemoglobin and less than 7. The patient was type and crossed for blood. My attempted to contact the patient's conservator however mailbox was full. Patient was noted to have a severe anemia which likely would require transfusion.Dr. Tam Wall was contacted for inpatient management Labs Test 08/05/17 00:00 White Blood Count 9.0 K/UL (4.8-10.8) Red Blood Count 2.88 M/UL (4.20-5.40) Hemoglobin 6.8 G/DL (12.0-16.0) Hematocrit 22.9 % (37.0-47.0) Mean Corpuscular Volume 79 FL (80-99) Mean Corpuscular Hemoglobin 23.5 PG (27.0-31.0) Mean Corpuscular Hemoglobin Concent 29.5 G/DL (32.0-36.0) Red Cell Distribution Width 17.8 % (11.6-14.8) Platelet Count 296 K/UL (150-450) Mean Platelet Volume 7.0 FL (6.5-10.1) Neutrophils (%) (Auto) % (45.0-75.0) Lymphocytes (%) (Auto) % (20.0-45.0) Monocytes (%) (Auto) % (1.0-10.0) Eosinophils (%) (Auto) % (0.0-3.0) Basophils (%) (Auto) % (0.0-2.0) Differential Total Cells Counted 100 Neutrophils % (Manual) 56 % (45-75) Lymphocytes % (Manual) 31 % (20-45) Monocytes % (Manual) 11 % (1-10) Eosinophils % (Manual) 2 % (0-3) Basophils % (Manual) 0 % (0-2) Band Neutrophils 0 % (0-8) Platelet Estimate Adequate Platelet Morphology Normal Prothrombin Time 10.7 SEC (9.30-11.50) Prothromb Time International Ratio 1.0 (0.9-1.1) Activated Partial Thromboplast Time 26 SEC (23-33) Sodium Level 137 MMOL/L (136-145) Potassium Level 5.6 MMOL/L (3.5-5.1) Chloride Level 102 MMOL/L (98-107) Carbon Dioxide Level 26 MMOL/L (21-32) Anion Gap 9 mmol/L (5-15) Blood Urea Nitrogen 25 mg/dL (7-18) Creatinine 1.6 MG/DL (0.55-1.30) Estimat Glomerular Filtration Rate mL/min (>60) Glucose Level 133 MG/DL (74-106) Calcium Level 9.7 MG/DL (8.5-10.1) Total Bilirubin 0.2 MG/DL (0.2-1.0) Aspartate Amino Transf (AST/SGOT) 28 U/L (15-37) Alanine Aminotransferase (ALT/SGPT) 16 U/L (12-78) Alkaline Phosphatase 83 U/L (46-116) Troponin I 0.017 ng/mL (0.000-0.056) Total Protein 8.5 G/DL (6.4-8.2) Albumin 3.5 G/DL (3.4-5.0) Globulin 5.0 g/dL Albumin/Globulin Ratio 0.7 (1.0-2.7) Lipase 241 U/L (73-393) Last Vital Signs Date Time Temp Pulse Resp B/P (MAP) Pulse Ox O2 Delivery O2 Flow Rate FiO2 08/05/17 00:49 97.5 94 18 130/53 97 Room Air Status: unchanged Disposition: ADMITTED INPATIENT Condition: Serious Referrals: NON PHYSICIAN (PCP) Jose Arciniega Aug 05, 2017 03:47
[2017-08-05] MEDS ORDERED: Albuterol/Ipratropium 3ml neb HHN PRN (08:45)
[2017-08-05] MEDS: Pantoprazole Inj IVP SCH (09:00)
[2017-08-05] MEDS: Milk of Magnesia 30ml Ud ORAL SCH ×2 (09:00→10:42)
[2017-08-05] MEDS: Lisinopril 20mg tab ORAL SCH (09:00)
[2017-08-05] MEDS: Docusate 100mg cap ORAL SCH (10:00)
[2017-08-05] MEDS: Morphine Sulfate 2mg/ml Inj IVP PRN (12:59)
[2017-08-05] MEDS: D5NS 1,000 ML IV SCH (13:01)
--- NOTE | 2017-08-05 14:58 | Diagnostic Imaging Report ---
Indication: Abdominal pain, increased rectal bleeding, pain, history proctocolitis Technique: Spiral acquisitions obtained through the abdomen and pelvis. No oral contrast utilized, per patient request No IV contrast utilized, due to renal insufficiency.. Multiplanar reconstructions were generated. Total dose length product the L5 mGycm. CTDIvol(s) 17 mGy. Dose reduction achieved using automated exposure control Comparison: 05/11/2017 Findings: Normal appendix. There are scattered colonic diverticula. There is moderate fecal retention proximally. The rectum is markedly distended by stool, measures 8.4 cm transverse diameter. This is increased from the previous exam. There is minimal infiltration of the perirectal fat distally. There is wall thickening of the distal rectum. The distal sigmoid is also distended by feces, to a lesser extent in the rectum. There is a broad-based umbilical hernia demonstrated. Distal esophagus, stomach, duodenum are unremarkable. Proximal small bowel loops are gas-filled, upper limits of normal in caliber or borderline distended, slightly more so than on the previous exam. No definite transition point demonstrated. The gallbladder contains small gallstones, more apparent than on the prior exam. Lack of IV contrast limits assessment of the solid organs. Wedge-shaped peripheral low-attenuation in the liver demonstrated in segment 8 probably just represents a wrinkle in the liver capsule. Unremarkable bile ducts. Pancreas, spleen, are unremarkable. There is mild fullness to the right renal collecting system which is unchanged from the previous exam. No evidence of ureteral calculus. Nonobstructive intrarenal calculi are seen in the calyces bilaterally. No focal renal parenchymal abnormality. The uterus contains some calcifications, is otherwise unremarkable. Previously reported bladder wall thickening is less apparent than before. No pelvic mass or adenopathy. The lungs demonstrate a calcified granuloma at the right lung base, also previously reported. Focal areas of scarring also again demonstrated. Degenerative changes of the thoracic and lumbar spine are again demonstrated. Impression: Considerable distention of the rectum as well as the distal signal by stool, suspect rectal fecal impaction. Wall thickening of the distal rectum and minimal surrounding inflammatory change may indicate proctitis, nonspecific but possibly stercoral in nature Nonspecific mild diffuse borderline distention of the small bowel, particularly proximally. May be functional in nature or reflect mild ileus Broad-based umbilical hernia, does not appear to be obstructive Cholelithiasis Bilateral nonobstructive intrarenal calculi Diverticulosis. No evidence of diverticulitis Other findings as described, including degenerative spondylosis, right lung base calcified granuloma and bilateral basilar pulmonary parenchymal scarring, small uterine calcifications The CT scanner at [facility] is accredited by the [employer] and the scans are performed using protocols designed to limit radiation exposure to as low as reasonably achievable to attain images of sufficient resolution adequate for diagnostic evaluation.
[2017-08-05 15:23] LABS: BASOPHILS % (AUTO) 1.1 % (0.0-2.0); EOSINOPHILS % (AUTO) 3.4 % (0.0-3.0); MEAN CORPUSCULAR HEMOGLOBIN 25.9 PG (27.0-31.0); MEAN CORPUSCULAR HGB CONC 31.2 G/DL (32.0-36.0); MEAN CORPUSCULAR VOLUME 83 FL (80-99); MEAN PLATELET VOLUME 6.9 FL (6.5-10.1); MONOCYTES % (AUTO) 8.7 % (1.0-10.0); NEUTROPHILS % (AUTO) 67.8 % (45.0-75.0); PLATELET COUNT 243 K/UL (150-450); RED BLOOD COUNT 3.39 M/UL (4.20-5.40); RED CELL DISTRIBUTION WIDTH 17.1 % (11.6-14.8); WHITE BLOOD COUNT 9.2 K/UL (4.8-10.8)
[2017-08-05 15:29] LABS: ANION GAP 10 mmol/L (5-15); CARBON DIOXIDE 25 MMOL/L (21-32); CHLORIDE 105 MMOL/L (98-107); CREATININE 1.3 MG/DL (0.55-1.30); POTASSIUM 4.4 MMOL/L (3.5-5.1); SODIUM 140 MMOL/L (136-145)
[2017-08-05] MEDS: Hydromorphone 0.5mg/0.5ml inj IVP PRN (16:22)
--- NOTE | 2017-08-05 18:30 | History and Physical Report ---
DATE OF ADMISSION: 08/05/2017 CHIEF COMPLAINT: GI bleed. HISTORY OF PRESENT ILLNESS: The patient is a 77-year-old female. She has a prior history of stroke, DVT, hypertension, hyperlipidemia, and diabetes. She has a history of psychiatric disorder. She was transferred from residential facility with complaints of bright red blood and dark stools. According to the patient, she has noted dark stools for the last two weeks. On the day of admission, she had bright red blood. On evaluation in the emergency room, the patient was noted to have a hemoglobin of 6.8. According to the patient, she was previously diagnosed with ulcers many years ago, but has not had any issues recently. She denies any melena, any hematemesis, or bright red blood per rectum until recently. She denies any abdominal pain. PAST MEDICAL HISTORY: As above. PAST SURGICAL HISTORY: None. CURRENT MEDICATIONS: Reconciled and reviewed. ALLERGIES: Include hydrocodone, penicillin, propoxyphene, sulfa, and tetracycline. FAMILY HISTORY: Noncontributory. SOCIAL HISTORY: There is no known history of tobacco, ethanol, or drugs. REVIEW OF SYSTEMS: GENERAL: No fever or chills. HEENT: No headaches or visual changes. CARDIOPULMONARY: No chest pain or shortness of breath. GASTROINTESTINAL: No nausea. No vomiting. Positive melena and bright red blood per rectum. GENITOURINARY: No urgency or frequency. MUSCULOSKELETAL: No joint pain or swelling. NEUROLOGIC: No evidence of seizures. PHYSICAL EXAMINATION: VITAL SIGNS: Temperature 98 degrees, blood pressure 144/68, pulse of 84, and respirations 20. GENERAL: The patient is a well-developed female in no apparent distress. She is awake and alert. HEENT: Pupils are equal, round, and reactive to light. Sclerae anicteric. Oropharynx clear. NECK: Supple. HEART: Regular rate and rhythm. LUNGS: Clear. ABDOMEN: Soft, nontender, and nondistended. EXTREMITIES: Without clubbing, cyanosis, or edema. LABORATORY DATA: White count 9, hemoglobin 6.8, hematocrit 23, and platelets of 296,000. Sodium 137, potassium 5.6, and creatinine was 1.6. Coags were normal. ASSESSMENT: This is a pleasant female with complaints of rectal bleeding. She had a combination of bright red blood as well as dark stools over the last several weeks. She is on Xarelto for deep venous thrombosis. She has hypertension and diabetes. PLAN: Discontinue aspirin and Xarelto. Transfuse to hemoglobin greater than 8.5, serial CBCs, and intravenous proton pump inhibitors. Continue outpatient cardiac and diabetic regimen. The patient will be placed on clear liquid diet. She should be hydrated. Await GI consultation. Tam Wall M.D. DR: SANJU JOB#: [id number] CC:
[2017-08-05] MEDS: Atorvastatin 20mg tab ORAL SCH (21:00)
--- NOTE | 2017-08-05 23:09 | Consultation ---
History of Present Illness General Chief Complaint: Vaginal Present Illness HPI 77-year-old female with history of stroke, DVT, hypertension, hyperlipidemia, and diabetes. She has a history of psychiatric disorder. [facility] with complaints of bright red blood and dark stools. the pt was earlier anxious and somewhat uncooperative with staff. the pt has dx of schizophrenia and takes risperdal at times has AH. the pt denies si /hi Allergies: Coded Allergies: PENICILLINS (Verified Allergy, Intermediate, Itching, 06/25/12) PROPOXYPHENE HCL (Verified Allergy, Intermediate, Itching, 06/25/12) TETRACYCLINE (Verified Allergy, Intermediate, Itching, 06/25/12) PROPOXYPHENE (Verified Allergy, Unknown, 06/25/12) TETRACYCLINES (Unverified Allergy, Unknown, 05/11/17) HYDROCODONE (Verified Adverse Reaction, Intermediate, GI UPSET, 05/05/16) SULFA (SULFONAMIDE ANTIBIOTICS) (Verified Adverse Reaction, Intermediate, GI UPSET, 05/05/16) Medication History Scheduled Amlodipine Besylate* (Amlodipine Besylate*), 10 MG ORAL DAILY, (Reported) Aspirin* (Aspirin*), 81 MG ORAL DAILY, (Reported) Atorvastatin Calcium* (Atorvastatin Calcium*), 20 MG ORAL BEDTIME, (Reported) Docusate Sodium* (Docusate Sodium*), 100 MG ORAL DAILY, (Reported) Lisinopril (Lisinopril*), 40 MG ORAL DAILY, (Reported) Magnesium Hydroxide* (Milk Of Magnesia*), 30 ML ORAL DAILY, (Reported) Ranitidine Hcl* (Zantac*), 150 MG ORAL BEDTIME, (Reported) Risperidone (Risperidone), 3 MG ORAL HS, (Reported) Risperidone* (Risperdal*), 2 MG ORAL DAILY, (Reported) Rivaroxaban (Xarelto), 20 MG ORAL DAILY, (Reported) Miscellaneous Medications Bisacodyl (Dulcolax), 10 MG RC, (Reported) Clonidine HCl (Clonidine HCl), 0.1 MG GT, (Reported) Cranberry (Cranberry), 850 MG PO, (Reported) Ipratropium/Albuterol Sulfate (DuoNeb 0.5-3(2.5)mg/3ml), 3 ML HHN, (Reported) Linagliptin (Tradjenta), 5 MG PO, (Reported) Discontinued Medications Linagliptin (Tradjenta), 5 MG PO DAILY, (Reported) Discontinued Reason: Therapy completed Nitrofurantoin Monohyd/M-Cryst (Nitrofurantoin [place]-Mcr 100 mg), 100 MG ORAL Q12H Discontinued Reason: Therapy completed Patient History History Provided By: Patient, Medical Record, PMD Healthcare decision maker Resuscitation status Advanced Directive on File Review of Systems Constitutional: Reports: malaise, weakness Psychiatric: Reports: prior hx, anxiety, depressed feelings, emotional problems , hallucinations Physical Exam General Appearance: WD/WN, no apparent distress, alert, overweight Neurologic: alert, oriented x 3, responsive, depressed affect Last 24 Hour Vital Signs Date Time Temp Pulse Resp B/P (MAP) Pulse Ox O2 Delivery O2 Flow Rate FiO2 08/05/17 19:46 90 18 Room Air 21 08/05/17 16:00 97 08/05/17 15:24 98.5 93 18 132/64 98 Room Air 08/05/17 12:00 81 08/05/17 11:38 96.4 82 20 129/61 96 Room Air 08/05/17 10:46 83 139/83 08/05/17 10:31 83 18 Room Air 08/05/17 09:06 98.1 88 18 139/83 98 Room Air 08/05/17 09:00 93 08/05/17 08:25 97.4 84 16 136/58 98 Room Air 08/05/17 08:25 97.3 84 16 136/58 98 Room Air 08/05/17 07:30 97.4 82 18 144/68 100 Room Air 08/05/17 07:06 97.3 81 18 142/62 95 Room Air 08/05/17 05:49 97.2 79 17 140/55 97 Room Air 08/05/17 03:50 97.3 88 14 08/05/17 00:49 97.5 94 18 130/53 97 Room Air Intake and Output 08/05/17 08/06/17 19:00 07:00 Intake Total 1240 ml Balance 1240 ml Intake Oral 1240 ml # Voids 2 # Bowel Movements 1 Laboratory Tests Test 08/05/17 00:00 08/05/17 15:00 White Blood Count 9.0 K/UL (4.8-10.8) 9.2 K/UL (4.8-10.8) Red Blood Count 2.88 M/UL (4.20-5.40) L 3.39 M/UL (4.20-5.40) L Hemoglobin 6.8 G/DL (12.0-16.0) *L 8.8 G/DL (12.0-16.0) L Hematocrit 22.9 % (37.0-47.0) L 28.1 % (37.0-47.0) L Mean Corpuscular Volume 79 FL (80-99) L 83 FL (80-99) Mean Corpuscular Hemoglobin 23.5 PG (27.0-31.0) L 25.9 PG (27.0-31.0) L Mean Corpuscular Hemoglobin Concent 29.5 G/DL (32.0-36.0) L 31.2 G/DL (32.0-36.0) L Red Cell Distribution Width 17.8 % (11.6-14.8) H 17.1 % (11.6-14.8) H Platelet Count 296 K/UL (150-450) 243 K/UL (150-450) Mean Platelet Volume 7.0 FL (6.5-10.1) 6.9 FL (6.5-10.1) Neutrophils (%) (Auto) % (45.0-75.0) 67.8 % (45.0-75.0) Lymphocytes (%) (Auto) % (20.0-45.0) 19.0 % (20.0-45.0) L Monocytes (%) (Auto) % (1.0-10.0) 8.7 % (1.0-10.0) Eosinophils (%) (Auto) % (0.0-3.0) 3.4 % (0.0-3.0) H Basophils (%) (Auto) % (0.0-2.0) 1.1 % (0.0-2.0) Differential Total Cells Counted 100 Neutrophils % (Manual) 56 % (45-75) Lymphocytes % (Manual) 31 % (20-45) Monocytes % (Manual) 11 % (1-10) H Eosinophils % (Manual) 2 % (0-3) Basophils % (Manual) 0 % (0-2) Band Neutrophils 0 % (0-8) Platelet Estimate Adequate Platelet Morphology Normal Prothrombin Time 10.7 SEC (9.30-11.50) Prothromb Time International Ratio 1.0 (0.9-1.1) Activated Partial Thromboplast Time 26 SEC (23-33) Sodium Level 137 MMOL/L (136-145) 140 MMOL/L (136-145) Potassium Level 5.6 MMOL/L (3.5-5.1) H 4.4 MMOL/L (3.5-5.1) Chloride Level 102 MMOL/L (98-107) 105 MMOL/L (98-107) Carbon Dioxide Level 26 MMOL/L (21-32) 25 MMOL/L (21-32) Anion Gap 9 mmol/L (5-15) 10 mmol/L (5-15) Blood Urea Nitrogen 25 mg/dL (7-18) H 18 mg/dL (7-18) Creatinine 1.6 MG/DL (0.55-1.30) H 1.3 MG/DL (0.55-1.30) Estimat Glomerular Filtration Rate mL/min (>60) mL/min (>60) Glucose Level 133 MG/DL (74-106) H 198 MG/DL (74-106) H Calcium Level 9.7 MG/DL (8.5-10.1) 9.0 MG/DL (8.5-10.1) Total Bilirubin 0.2 MG/DL (0.2-1.0) Aspartate Amino Transf (AST/SGOT) 28 U/L (15-37) Alanine Aminotransferase (ALT/SGPT) 16 U/L (12-78) Alkaline Phosphatase 83 U/L (46-116) Troponin I 0.017 ng/mL (0.000-0.056) Total Protein 8.5 G/DL (6.4-8.2) H Albumin 3.5 G/DL (3.4-5.0) Globulin 5.0 g/dL Albumin/Globulin Ratio 0.7 (1.0-2.7) L Lipase 241 U/L (73-393) Height (Feet): 5 Height (Inches): 7.00 Weight (Pounds): 190 Medications Current Medications Medications (Trade) Dose Ordered Sig/Jackie Route PRN Reason Start Time Stop Time Status Last Admin Dose Admin Albuterol/ Ipratropium (DuoNeb 0.5-3(2.5)mg/3ml) 3 ml EVERY 4 HOURS PRN HHN Shortness of Breath 08/05/17 08:45 08/10/17 08:44 Amlodipine Besylate (Norvasc) 10 mg DAILY ORAL 08/05/17 09:00 09/04/17 08:59 08/05/17 10:46 Atorvastatin Calcium (Lipitor) 20 mg BEDTIME ORAL 08/05/17 21:00 09/04/17 20:59 08/05/17 21:00 Bisacodyl (Dulcolax) 10 mg DAILYPRN PRN RECTAL Constipation 08/05/17 08:45 09/04/17 08:44 Clonidine HCl (Catapres) 0.1 mg EVERY 4 HOURS PRN GT For High Blood Pressure 08/05/17 08:45 09/04/17 08:44 Dextrose/Sodium Chloride 1,000 ml @ 75 mls/hr [id number] IV 08/05/17 10:00 09/04/17 09:59 08/05/17 13:01 Docusate Sodium (Colace) 100 mg DAILY ORAL 08/05/17 10:00 09/04/17 09:59 Hydromorphone HCl (Dilaudid) 1 mg Q3H PRN IVP breakthrough pain 08/05/17 16:15 08/12/17 16:14 08/05/17 16:22 Lisinopril (Prinivil) 40 mg DAILY ORAL 08/05/17 09:00 09/04/17 08:59 Magnesium Hydroxide (Mom) 30 ml DAILY ORAL 08/05/17 09:00 09/04/17 08:59 Morphine Sulfate (Morphine Sulfate) 1 mg Q4HR PRN IVP For Pain 08/05/17 12:45 08/12/17 12:44 08/05/17 12:59 Pantoprazole (Protonix) 40 mg DAILY IVP 08/05/17 09:00 09/04/17 08:59 Risperidone (RisperDAL) 2 mg DAILY ORAL 08/05/17 09:00 09/04/17 08:59 08/05/17 10:45 Risperidone (RisperDAL) 3 mg QHS ORAL 08/05/17 21:00 09/04/17 20:59 08/05/17 21:01 Sitagliptin Phosphate (Januvia) 50 mg ACBREAKFAST ORAL 08/06/17 06:30 09/05/17 06:29 Assessment/Plan Status: stable Assessment/Plan Schizophrenia change all risperdal to night time and increase to 6mg qhs Maria D Lofton M.D. Aug 05, 2017 23:09
[2017-08-06] VITALS: BP 129/61
[2017-08-06 01:09] LABS: BASOPHILS % (AUTO) 1.7 % (0.0-2.0); EOSINOPHILS % (AUTO) 3.2 % (0.0-3.0); LYMPHOCYTES % (AUTO) 21.9 % (20.0-45.0); MEAN CORPUSCULAR HEMOGLOBIN 25.6 PG (27.0-31.0); MEAN CORPUSCULAR HGB CONC 30.7 G/DL (32.0-36.0); MEAN CORPUSCULAR VOLUME 83 FL (80-99); MEAN PLATELET VOLUME 6.4 FL (6.5-10.1); MONOCYTES % (AUTO) 6.8 % (1.0-10.0); NEUTROPHILS % (AUTO) 66.4 % (45.0-75.0); PLATELET COUNT 238 K/UL (150-450); RED BLOOD COUNT 3.43 M/UL (4.20-5.40); RED CELL DISTRIBUTION WIDTH 17.3 % (11.6-14.8); WHITE BLOOD COUNT 9.2 K/UL (4.8-10.8)
[2017-08-06 04:00] VITALS: BP 139/64
[2017-08-06] MEDS: D5NS 1,000 ML IV SCH ×2 (04:50→13:16)
[2017-08-06] MEDS: sitaGLIPtin 50mg tab ORAL SCH (06:23)
[2017-08-06 08:24] VITALS: BP 105/98
--- NOTE | 2017-08-06 08:47 | General Progress Note ---
Assessment/Plan Problem List: (1) GI bleed ICD Codes: K92.2 - Gastrointestinal hemorrhage, unspecified SNOMED: 89988259 (2) Dementia ICD Codes: F03.90 - Dementia SNOMED: 73040617 (3) Diabetes ICD Codes: E11.9 - Diabetes SNOMED: 71169152 (4) Anemia ICD Codes: D64.9 - Anemia, unspecified SNOMED: 061826902 Status: stable Assessment/Plan Gi eval ?endoscopy aspirin and xarelto on hold ivf PPI rx stable Subjective ROS Limited/Unobtainable: No Constitutional: Reports: malaise, weakness HEENT: Reports: no symptoms Cardiovascular: Reports: no symptoms Respiratory: Reports: cough Gastrointestinal/Abdominal: Reports: black stools, blood in stool Genitourinary: Reports: no symptoms Neurologic/Psychiatric: Reports: pre-existing deficit Endocrine: Reports: no symptoms Hematologic/Lymphatic: Reports: anemia Allergies: Coded Allergies: PENICILLINS (Verified Allergy, Intermediate, Itching, 06/25/12) PROPOXYPHENE HCL (Verified Allergy, Intermediate, Itching, 06/25/12) TETRACYCLINE (Verified Allergy, Intermediate, Itching, 06/25/12) PROPOXYPHENE (Verified Allergy, Unknown, 06/25/12) TETRACYCLINES (Unverified Allergy, Unknown, 05/11/17) HYDROCODONE (Verified Adverse Reaction, Intermediate, GI UPSET, 05/05/16) SULFA (SULFONAMIDE ANTIBIOTICS) (Verified Adverse Reaction, Intermediate, GI UPSET, 05/05/16) All Systems: reviewed and negative except above Subjective no further bleeding noted. s/p 2 units prbcs. on clears. wants to eat. gi eval pending Objective Last 24 Hour Vital Signs Date Time Temp Pulse Resp B/P (MAP) Pulse Ox O2 Delivery O2 Flow Rate FiO2 08/06/17 08:34 86 18 Room Air 21 08/06/17 08:24 98.1 105 20 105/98 97 Room Air 08/06/17 04:00 98.2 90 20 139/64 95 Room Air 08/06/17 04:00 85 08/06/17 00:00 82 08/06/17 00:00 98.6 90 22 129/61 96 Nasal Cannula 2.0 08/05/17 20:00 88 08/05/17 19:46 90 18 Room Air 21 08/05/17 16:00 97 08/05/17 15:24 98.5 93 18 132/64 98 Room Air 08/05/17 12:00 81 08/05/17 11:38 96.4 82 20 129/61 96 Room Air 08/05/17 10:46 83 139/83 08/05/17 10:31 83 18 Room Air 08/05/17 09:06 98.1 88 18 139/83 98 Room Air 08/05/17 09:00 93 Intake and Output 08/06/17 08/07/17 19:00 07:00 Intake Total 500 ml Balance 500 ml Intake Oral 500 ml Laboratory Tests 08/05/17 15:00: White Blood Count 9.2, Red Blood Count 3.39L, Hemoglobin 8.8L, Hematocrit 28.1L , Mean Corpuscular Volume 83, Mean Corpuscular Hemoglobin 25.9L, Mean Corpuscular Hemoglobin Concent 31.2L, Red Cell Distribution Width 17.1H, Platelet Count 243, Mean Platelet Volume 6.9, Neutrophils (%) (Auto) 67.8, Lymphocytes (%) (Auto) 19.0L, Monocytes (%) (Auto) 8.7, Eosinophils (%) (Auto) 3.4H, Basophils (%) (Auto) 1.1, Sodium Level 140, Potassium Level 4.4, Chloride Level 105, Carbon Dioxide Level 25, Anion Gap 10, Blood Urea Nitrogen 18, Creatinine 1.3, Estimat Glomerular Filtration Rate , Glucose Level 198H, Calcium Level 9.0 08/06/17 01:00: White Blood Count 9.2, Red Blood Count 3.43L, Hemoglobin 8.8L, Hematocrit 28.6L , Mean Corpuscular Volume 83, Mean Corpuscular Hemoglobin 25.6L, Mean Corpuscular Hemoglobin Concent 30.7L, Red Cell Distribution Width 17.3H, Platelet Count 238, Mean Platelet Volume 6.4L, Neutrophils (%) (Auto) 66.4, Lymphocytes (%) (Auto) 21.9, Monocytes (%) (Auto) 6.8, Eosinophils (%) (Auto) 3.2H, Basophils (%) (Auto) 1.7 Height (Feet): 5 Height (Inches): 7.00 Weight (Pounds): 190 General Appearance: WD/WN, alert Neck: normal inspection Cardiovascular: normal rate, regular rhythm Respiratory/Chest: chest wall non-tender, lungs clear, normal breath sounds, no respiratory distress Abdomen: normal bowel sounds, non tender, soft, no organomegaly Edema: no edema noted Arm (L), no edema noted Arm (R), no edema noted Leg (L), no edema noted Leg (R), no edema noted Pedal (L), no edema noted Pedal (R), no edema noted Generalized Neurologic: alert, oriented x 3 ROSA WILSON Aug 06, 2017 08:47
[2017-08-06 09:45] LABS: BASOPHILS % (AUTO) 0.9 % (0.0-2.0); EOSINOPHILS % (AUTO) 5.8 % (0.0-3.0); LYMPHOCYTES % (AUTO) 17.4 % (20.0-45.0); MEAN CORPUSCULAR HEMOGLOBIN 24.1 PG (27.0-31.0); MEAN CORPUSCULAR HGB CONC 28.7 G/DL (32.0-36.0); MEAN CORPUSCULAR VOLUME 84 FL (80-99); MEAN PLATELET VOLUME 6.5 FL (6.5-10.1); MONOCYTES % (AUTO) 8.4 % (1.0-10.0); NEUTROPHILS % (AUTO) 67.5 % (45.0-75.0); PLATELET COUNT 260 K/UL (150-450); RED BLOOD COUNT 3.42 M/UL (4.20-5.40); WHITE BLOOD COUNT 8.6 K/UL (4.8-10.8)
[2017-08-06] MEDS: Pantoprazole Inj IVP SCH (09:50)
[2017-08-06] MEDS: Docusate 100mg cap ORAL SCH ×2 (09:50→09:56)
[2017-08-06] MEDS: Milk of Magnesia 30ml Ud ORAL SCH ×2 (09:50→09:54)
[2017-08-06] MEDS: Lisinopril 20mg tab ORAL SCH (09:51)
--- NOTE | 2017-08-06 10:12 | General Progress Note ---
Assessment/Plan Assessment/Plan Assessment - GIB - Anemia - CT changes c/w proctitis - h/o PUD - h/o DVT, on anticoagulation (held) Recommendations - Clear liquid - GI tract preparation - EGD/Colon in am, if patient willing to give consent Thank you Salena Reddy MD Subjective Allergies: Coded Allergies: PENICILLINS (Verified Allergy, Intermediate, Itching, 06/25/12) PROPOXYPHENE HCL (Verified Allergy, Intermediate, Itching, 06/25/12) TETRACYCLINE (Verified Allergy, Intermediate, Itching, 06/25/12) PROPOXYPHENE (Verified Allergy, Unknown, 06/25/12) TETRACYCLINES (Unverified Allergy, Unknown, 05/11/17) HYDROCODONE (Verified Adverse Reaction, Intermediate, GI UPSET, 05/05/16) SULFA (SULFONAMIDE ANTIBIOTICS) (Verified Adverse Reaction, Intermediate, GI UPSET, 05/05/16) Objective Last 24 Hour Vital Signs Date Time Temp Pulse Resp B/P (MAP) Pulse Ox O2 Delivery O2 Flow Rate FiO2 08/06/17 09:51 105/98 08/06/17 09:50 86 105/98 08/06/17 08:34 86 18 Room Air 21 08/06/17 08:24 98.1 105 20 105/98 97 Room Air 08/06/17 04:00 98.2 90 20 139/64 95 Room Air 08/06/17 04:00 85 08/06/17 00:00 82 08/06/17 00:00 98.6 90 22 129/61 96 Nasal Cannula 2.0 08/05/17 20:00 88 08/05/17 19:46 90 18 Room Air 21 08/05/17 16:00 97 08/05/17 15:24 98.5 93 18 132/64 98 Room Air 08/05/17 12:00 81 08/05/17 11:38 96.4 82 20 129/61 96 Room Air 08/05/17 10:46 83 139/83 08/05/17 10:31 83 18 Room Air Intake and Output 08/06/17 08/07/17 19:00 07:00 Intake Total 500 ml Balance 500 ml Intake Oral 500 ml # Voids 1 Laboratory Tests 08/05/17 15:00: White Blood Count 9.2, Red Blood Count 3.39L, Hemoglobin 8.8L, Hematocrit 28.1L , Mean Corpuscular Volume 83, Mean Corpuscular Hemoglobin 25.9L, Mean Corpuscular Hemoglobin Concent 31.2L, Red Cell Distribution Width 17.1H, Platelet Count 243, Mean Platelet Volume 6.9, Neutrophils (%) (Auto) 67.8, Lymphocytes (%) (Auto) 19.0L, Monocytes (%) (Auto) 8.7, Eosinophils (%) (Auto) 3.4H, Basophils (%) (Auto) 1.1, Sodium Level 140, Potassium Level 4.4, Chloride Level 105, Carbon Dioxide Level 25, Anion Gap 10, Blood Urea Nitrogen 18, Creatinine 1.3, Estimat Glomerular Filtration Rate , Glucose Level 198H, Calcium Level 9.0 08/06/17 01:00: White Blood Count 9.2, Red Blood Count 3.43L, Hemoglobin 8.8L, Hematocrit 28.6L , Mean Corpuscular Volume 83, Mean Corpuscular Hemoglobin 25.6L, Mean Corpuscular Hemoglobin Concent 30.7L, Red Cell Distribution Width 17.3H, Platelet Count 238, Mean Platelet Volume 6.4L, Neutrophils (%) (Auto) 66.4, Lymphocytes (%) (Auto) 21.9, Monocytes (%) (Auto) 6.8, Eosinophils (%) (Auto) 3.2H, Basophils (%) (Auto) 1.7 08/06/17 09:00: White Blood Count 8.6, Red Blood Count 3.42L, Hemoglobin 8.2L, Hematocrit 28.7L , Mean Corpuscular Volume 84, Mean Corpuscular Hemoglobin 24.1L, Mean Corpuscular Hemoglobin Concent 28.7L, Red Cell Distribution Width 17.0H, Platelet Count 260, Mean Platelet Volume 6.5, Neutrophils (%) (Auto) 67.5, Lymphocytes (%) (Auto) 17.4L, Monocytes (%) (Auto) 8.4, Eosinophils (%) (Auto) 5.8H, Basophils (%) (Auto) 0.9 Height (Feet): 5 Height (Inches): 7.00 Weight (Pounds): 190 SALENA REDDY Aug 06, 2017 10:12
[2017-08-06] MEDS ORDERED: D5NS 1000ml IV ONE (10:20)
[2017-08-06] MEDS ORDERED: Bisacodyl EC 5mg tab ORAL ONE ×2 (10:30→15:00)
[2017-08-06] MEDS: Morphine Sulfate 2mg/ml Inj IVP PRN ×3 (10:31→20:37)
[2017-08-06] MEDS ORDERED: Magnesium Citrate Liq Btl ORAL ONE (11:30)
[2017-08-06 11:31] VITALS: BP 145/74
[2017-08-06 15:44] VITALS: BP 142/75
--- NOTE | 2017-08-06 16:43 | Cardiology Report ---
APPROVED REPORT EKG Measurement Heart [id number] Normal sinus rhythm Normal ECG
[2017-08-06] MEDS ORDERED: Sorbitol Solution UD 30ml ORAL ONE ×2 (19:00)
[2017-08-06 20:05] VITALS: BP 129/59
--- NOTE | 2017-08-06 20:22 | General Progress Note ---
Assessment/Plan Status: doing well, stable, progressing Assessment/Plan schizoaffective -cont current meds -provided ro/st Subjective Neurologic/Psychiatric: Reports: anxiety, depressed, emotional problems Allergies: Coded Allergies: PENICILLINS (Verified Allergy, Intermediate, Itching, 06/25/12) PROPOXYPHENE HCL (Verified Allergy, Intermediate, Itching, 06/25/12) TETRACYCLINE (Verified Allergy, Intermediate, Itching, 06/25/12) PROPOXYPHENE (Verified Allergy, Unknown, 06/25/12) TETRACYCLINES (Unverified Allergy, Unknown, 05/11/17) HYDROCODONE (Verified Adverse Reaction, Intermediate, GI UPSET, 05/05/16) SULFA (SULFONAMIDE ANTIBIOTICS) (Verified Adverse Reaction, Intermediate, GI UPSET, 05/05/16) Subjective the pt is doing well amy anxiety. sleep and appetite adequate. compliant Objective Last 24 Hour Vital Signs Date Time Temp Pulse Resp B/P (MAP) Pulse Ox O2 Delivery O2 Flow Rate FiO2 08/06/17 20:05 98.2 90 16 129/59 97 Room Air 90 08/06/17 19:52 94 18 Room Air 21 08/06/17 16:00 88 08/06/17 15:44 98.1 95 20 142/75 98 Room Air 08/06/17 12:00 80 08/06/17 11:31 98.1 89 20 145/74 97 Room Air 08/06/17 09:51 105/98 08/06/17 09:50 86 105/98 08/06/17 08:34 86 18 Room Air 21 08/06/17 08:24 98.1 105 20 105/98 97 Room Air 08/06/17 08:00 83 08/06/17 04:00 98.2 90 20 139/64 95 Room Air 08/06/17 04:00 85 08/06/17 00:00 82 08/06/17 00:00 98.6 90 22 129/61 96 Nasal Cannula 2.0 Intake and Output 08/06/17 08/07/17 19:00 07:00 Intake Total 2175 ml Balance 2175 ml Intake Oral 1500 ml IV Total 675 ml # Voids 3 # Bowel Movements 2 Laboratory Tests 08/06/17 01:00: White Blood Count 9.2, Red Blood Count 3.43L, Hemoglobin 8.8L, Hematocrit 28.6L , Mean Corpuscular Volume 83, Mean Corpuscular Hemoglobin 25.6L, Mean Corpuscular Hemoglobin Concent 30.7L, Red Cell Distribution Width 17.3H, Platelet Count 238, Mean Platelet Volume 6.4L, Neutrophils (%) (Auto) 66.4, Lymphocytes (%) (Auto) 21.9, Monocytes (%) (Auto) 6.8, Eosinophils (%) (Auto) 3.2H, Basophils (%) (Auto) 1.7 08/06/17 09:00: White Blood Count 8.6, Red Blood Count 3.42L, Hemoglobin 8.2L, Hematocrit 28.7L , Mean Corpuscular Volume 84, Mean Corpuscular Hemoglobin 24.1L, Mean Corpuscular Hemoglobin Concent 28.7L, Red Cell Distribution Width 17.0H, Platelet Count 260, Mean Platelet Volume 6.5, Neutrophils (%) (Auto) 67.5, Lymphocytes (%) (Auto) 17.4L, Monocytes (%) (Auto) 8.4, Eosinophils (%) (Auto) 5.8H, Basophils (%) (Auto) 0.9 Height (Feet): 5 Height (Inches): 7.00 Weight (Pounds): 190 General Appearance: no apparent distress, alert, overweight Neurologic: alert, oriented x 3, responsive, depressed affect Maria D Lofton M.D. Aug 06, 2017 20:22
[2017-08-06] MEDS: Atorvastatin 20mg tab ORAL SCH (20:38)
[2017-08-06] MEDS: Sorbitol Solution UD 30ml ORAL ONE ×2 (22:00→22:19)
[2017-08-06] MEDS: Hydromorphone 0.5mg/0.5ml inj IVP PRN (22:35)
[2017-08-07] VITALS (18 sets, daily range): BP systolic 112–160; BP diastolic 50–78
[2017-08-07] MEDS: D5NS 1,000 ML IV SCH ×2 (02:00→03:40)
[2017-08-07] MEDS ORDERED: Fleet's Enema 133ml RECTAL ONE (05:00)
[2017-08-07] MEDS ORDERED: Morphine Sulfate 4mg/ml Inj ONE (05:12)
[2017-08-07] MEDS: Morphine Sulfate 2mg/ml Inj IVP PRN (05:38)
--- NOTE | 2017-08-07 06:17 | Consultation ---
DATE OF CONSULTATION: 08/06/2017 GASTROENTEROLOGY CONSULTATION CONSULTING PHYSICIAN: Salena Reddy M.D. CHIEF COMPLAINT: I was asked to see this patient by Dr. Tam Wall for evaluation of abnormal CT scan and anemia. HISTORY OF PRESENT ILLNESS: The patient is a 77-year-old woman, who has a prior history of multiple medical problems, who came to the hospital with bright red blood per rectum. The CT scan of the abdomen and pelvis showed some changes in the distal colon. She was also noted to be significantly anemic. On the recent admission, she was admitted and she refused gastrointestinal workup regardless of the etiology including cancer. On this admission, she is somewhat more accepting. However, she states that she will only accept colonoscopy tomorrow if eats solid food today. Despite multiple explanations from me that clear liquids are necessary for proper examination, she declined and said she would only accept colonoscopy and endoscopy if she gets regular solid food today. The patient was therefore given preparation, but she was advised that she will likely have a suboptimal study or incomplete evaluation. PAST MEDICAL HISTORY: History of stroke, deep vein thrombosis, hypertension, hyperlipidemia, diabetes, history of psychiatric disorder. ALLERGIES: Hydrocodone, penicillin, propoxyphene, sulfa, and tetracycline. SOCIAL HISTORY: The patient resides in a residential. FAMILY HISTORY: Noncontributory. REVIEW OF SYSTEMS: Otherwise negative. PHYSICAL EXAMINATION: GENERAL: This is an elderly woman, seen in her room. HEENT: Normocephalic and atraumatic. Sclerae are anicteric. Dentition is poor. NECK: Supple. CHEST: Clear to auscultation. CARDIOVASCULAR: Regular rate. ABDOMEN: Soft. EXTREMITIES: Revealed no edema. LABORATORY DATA: Noted. ASSESSMENT: This patient presents with anemia and hematochezia as well as CT changes with respect to he distal colon. The patient will require endoscopy and colonoscopy to evaluate both upper and lower gastrointestinal tract. The upper gastrointestinal tract possibilities include peptic ulcer disease and lower gastrointestinal tract would include various forms of colitis or colonic ulcers or colon cancer. The indications, risks, alternatives, and possible complications were explained to the patient and informed consent was obtained. RECOMMENDATIONS: 1. p.o. diet of solids per the patient's wishes. 2. Gastrointestinal tract preparation if feasible, given the above circumstances. 3. Endoscopy and colonoscopy tomorrow. Thank you for asking me to participate in the care of this patient. Salena Reddy M.D. DR: Lenard JOB#: [id number] CC: NICOLE
[2017-08-07] MEDS: sitaGLIPtin 50mg tab ORAL SCH ×2 (06:30→09:49)
[2017-08-07] MEDS ORDERED: NS 500ML IV ONE (06:55)
[2017-08-07] MEDS ORDERED: Lidocaine 1% MPF 10mg/ml 5ml ONE (07:00)
[2017-08-07] MEDS ORDERED: Propofol 200mg/20ml IV ONE (07:00)
--- NOTE | 2017-08-07 07:00 | Pre-Procedure Note/Attestation ---
Pre-Procedure Note/Attestation Complete Prior to Procedure Planned Procedure: not applicable Procedure Narrative: egd/colon Indications for Procedure Pre-Operative Diagnosis: anemia Attestation I attest that I discussed the nature of the procedure; its benefits; risks and complications; and alternatives (and the risks and benefits of such alternatives ), prior to the procedure, with the patient (or the patient's legal hvac sales representative). I attest that, if there was a reasonable possibility of needing a blood transfusion, the patient (or the patient's legal hvac sales representative) was given the [facility] standardized written summary, pursuant to the [place] Blood Safety Act ([place] Health and Safety Code # 1645, as amended). I attest that I re-evaluated the patient just prior to the surgery and that there has been no change in the patient's H&P, except as documented below: MIRNA LEDEZMA Aug 07, 2017 07:00
--- NOTE | 2017-08-07 07:00 | General Progress Note ---
Assessment/Plan Assessment/Plan Assessment - GIB - Anemia - CT changes c/w proctitis - h/o PUD - h/o DVT, on anticoagulation (held) - psych disorder - declined recommended colonic preparation Recommendations - NPO - EGD today - will attempt colonoscopy - but will likely be a very limited exam - Monitor H&H Subjective Allergies: Coded Allergies: PENICILLINS (Verified Allergy, Intermediate, Itching, 06/25/12) PROPOXYPHENE HCL (Verified Allergy, Intermediate, Itching, 06/25/12) TETRACYCLINE (Verified Allergy, Intermediate, Itching, 06/25/12) PROPOXYPHENE (Verified Allergy, Unknown, 06/25/12) TETRACYCLINES (Unverified Allergy, Unknown, 05/11/17) HYDROCODONE (Verified Adverse Reaction, Intermediate, GI UPSET, 05/05/16) SULFA (SULFONAMIDE ANTIBIOTICS) (Verified Adverse Reaction, Intermediate, GI UPSET, 05/05/16) Subjective Refused to take most of GI prep understood likely cannot do complete colonoscopy refused clear liquid diet yesterday Objective Last 24 Hour Vital Signs Date Time Temp Pulse Resp B/P (MAP) Pulse Ox O2 Delivery O2 Flow Rate FiO2 08/07/17 04:05 97.7 78 20 132/61 94 Room Air 78 08/07/17 00:52 79 08/07/17 00:15 98.1 81 21 127/62 95 Room Air 08/06/17 20:05 98.2 90 16 129/59 97 Room Air 90 08/06/17 20:00 85 08/06/17 19:52 94 18 Room Air 21 08/06/17 16:00 88 08/06/17 15:44 98.1 95 20 142/75 98 Room Air 08/06/17 12:00 80 08/06/17 11:31 98.1 89 20 145/74 97 Room Air 08/06/17 09:51 105/98 08/06/17 09:50 86 105/98 08/06/17 08:34 86 18 Room Air 21 08/06/17 08:24 98.1 105 20 105/98 97 Room Air 08/06/17 08:00 83 Laboratory Tests 08/06/17 09:00: White Blood Count 8.6, Red Blood Count 3.42L, Hemoglobin 8.2L, Hematocrit 28.7L , Mean Corpuscular Volume 84, Mean Corpuscular Hemoglobin 24.1L, Mean Corpuscular Hemoglobin Concent 28.7L, Red Cell Distribution Width 17.0H, Platelet Count 260, Mean Platelet Volume 6.5, Neutrophils (%) (Auto) 67.5, Lymphocytes (%) (Auto) 17.4L, Monocytes (%) (Auto) 8.4, Eosinophils (%) (Auto) 5.8H, Basophils (%) (Auto) 0.9 Height (Feet): 5 Height (Inches): 7.00 Weight (Pounds): 190 Objective Elderly AA woman NCAT supple CTA RRR soft , NT no edema MIRNA LEDEZMA Aug 07, 2017 07:00
--- NOTE | 2017-08-07 07:24 | Endoscopy Procedure Note ---
Endoscopy Procedure Note Indication for Procedure: anemia Procedures Performed: flexible sigmoidoscopy, EGD Operative Findings/Diagnosis: Gastric ulcer, stool impaction Specimen: yes Pt Tolerated Procedure Well: Yes Estimated Blood Loss: none Anesthesiologist: annabelle urena Anesthesia: MAC, moderate sedation Medication Given: see anesthesia record Implant(s) used?: No 50 yrs or older w/o bx or poly: Not Applicable 10yrs. F/U not recommended: Not Applicable If not recommended, why?: MIRNA LEDEZMA Aug 07, 2017 07:24
--- NOTE | 2017-08-07 07:26 | Brief Operative Note ---
Immediate Post Operative Note Operative Note Chief Complaint: anemia Pre-op Diagnosis: anemia Procedure: EGD/bx, Fle Post-op Diagnosis: 1cm, antrum bx rectal stool disimpaction flex sig to 1 neg Surgeon: kiran Anesthesiologist: annabelle urena Anesthesia: MAC Specimen: yes Complications: none Condition: stable Fluids: see report Estimated Blood Loss: none Drains: none Implant(s) used?: No MIRNA LEDEZMA Aug 07, 2017 07:26
--- NOTE | 2017-08-07 07:41 | Anethesia Preoperative Eval ---
Anesthesia Pre-op PMH/ROS General Date of Evaluation: Aug 07, 2017 Time of Evaluation: 06:45 ASA Score: ASA 4 Mallampati Score Class I : Soft palate, uvula, fauces, pillars visible Class II: Soft palate, uvula, fauces visible Class III: Soft palate, base of uvula visible Class IV: Only hard plate visible Mallampati Classification: Class II Surgeon: kiran Diagnosis: anemia Surgical Procedure: egd/colonoscopy Anesthesia History: none Social History: smoking Family History: no anesthesia problems Allergies: Coded Allergies: PENICILLINS (Verified Allergy, Intermediate, Itching, 06/25/12) PROPOXYPHENE HCL (Verified Allergy, Intermediate, Itching, 06/25/12) TETRACYCLINE (Verified Allergy, Intermediate, Itching, 06/25/12) PROPOXYPHENE (Verified Allergy, Unknown, 06/25/12) TETRACYCLINES (Unverified Allergy, Unknown, 05/11/17) HYDROCODONE (Verified Adverse Reaction, Intermediate, GI UPSET, 05/05/16) SULFA (SULFONAMIDE ANTIBIOTICS) (Verified Adverse Reaction, Intermediate, GI UPSET, 05/05/16) Medications: see eMAR Past Medical History Cardiovascular: Reports: HTN, CAD Gastrointestinal/Genitourinary: Reports: GERD, ESRD Neurologic/Psychiatric: Reports: dementia, CVA, depression/anxiety Endocrine: Reports: DM Hematology/Immune: Reports: anemia, DVT Anesthesia Pre-op Phys. Exam Physician Exam Last Vital Signs Date Time Temp Pulse Resp B/P (MAP) Pulse Ox O2 Delivery O2 Flow Rate FiO2 08/07/17 07:30 98.6 82 22 126/68 95 Room Air 08/06/17 19:52 21 08/06/17 00:00 2.0 Constitutional: NAD Neurologic: CN 2-12 intact Cardiovascular: RRR Respiratory: CTA Gastrointestinal: S/NT/ND Airway Exam Mallampati Score: Class II MO: full Neck: supple TMD: 2fb ROM: full Teeth: missing Anesthesia Pre-op A/P Labs Hematology Test 08/06/17 09:00 White Blood Count 8.6 K/UL (4.8-10.8) Red Blood Count 3.42 M/UL (4.20-5.40) L Hemoglobin 8.2 G/DL (12.0-16.0) L Hematocrit 28.7 % (37.0-47.0) L Mean Corpuscular Volume 84 FL (80-99) Mean Corpuscular Hemoglobin 24.1 PG (27.0-31.0) L Mean Corpuscular Hemoglobin Concent 28.7 G/DL (32.0-36.0) L Red Cell Distribution Width 17.0 % (11.6-14.8) H Platelet Count 260 K/UL (150-450) Mean Platelet Volume 6.5 FL (6.5-10.1) Neutrophils (%) (Auto) 67.5 % (45.0-75.0) Lymphocytes (%) (Auto) 17.4 % (20.0-45.0) L Monocytes (%) (Auto) 8.4 % (1.0-10.0) Eosinophils (%) (Auto) 5.8 % (0.0-3.0) H Basophils (%) (Auto) 0.9 % (0.0-2.0) Risk Assessment & Plan Assessment: asa4 Plan: mac Status Change Before Surgery: No Pre-Antibiotics Drug: SONYA Forde Aug 07, 2017 07:40
--- NOTE | 2017-08-07 07:42 | Immediate Post-Op Evaluation ---
Immediate Post-Op Evalulation Immediate Post-Op Evalulation Procedure: egd/colonoscopy Date of Evaluation: Aug 07, 2017 Time of Evaluation: 07:42 IV Fluids: 100ml 0.9ns Blood Products: none Estimated Blood Loss: negligible Blood Pressure Systolic: 141 Blood Pressure Diastolic: 69 Pulse Rate: 84 Respiratory Rate: 18 O2 Sat by Pulse Oximetry: 100 Temperature (Fahrenheit): 98.6 Pain Score (1-10): 0 Nausea: No Vomiting: No Complications none Patient Status: awake, reacts, patent Hydration Status: adequate Drug: SONYA Forde Aug 07, 2017 07:42
--- NOTE | 2017-08-07 07:44 | 48 Hour Post Anesthesia Eval ---
Post Anesthesia Evaluation Procedure: egd/colonoscopy Date of Evaluation: Aug 07, 2017 Time of Evaluation: 07:44 Blood Pressure Systolic: 141 0: 69 Pulse Rate: 77 Respiratory Rate: 18 Temperature (Fahrenheit): 98.6 O2 Sat by Pulse Oximetry: 98 Airway: patent Nausea: No Vomiting: No Pain Intensity: 0 Hydration Status: adequate Cardiopulmonary Status: stable Mental Status/LOC: patient returned to baseline Post-Anesthesia Complications: none Follow-up care needed: N/A SONYA CARLSON Aug 07, 2017 07:44
[2017-08-07] MEDS ORDERED: fentaNYL 100 mcg/2 mL IV PRN (07:45)
[2017-08-07] MEDS ORDERED: DiphenhydrAMINE 50mg/ml Inj IVP PRN (07:45)
[2017-08-07] MEDS ORDERED: Atropine Inj 1mg/10ml Syr IV PRN (07:45)
[2017-08-07] MEDS ORDERED: Midazolam 2mg/2ml Inj IVP PRN (07:45)
--- NOTE | 2017-08-07 08:48 | General Progress Note ---
Assessment/Plan Problem List: (1) GI bleed ICD Codes: K92.2 - Gastrointestinal hemorrhage, unspecified SNOMED: 32287362 (2) Dementia ICD Codes: F03.90 - Dementia SNOMED: 46163921 (3) Diabetes ICD Codes: E11.9 - Diabetes SNOMED: 03259019 (4) Anemia ICD Codes: D64.9 - Anemia, unspecified SNOMED: 619701650 (5) DVT (deep venous thrombosis) ICD Codes: I82.409 - Acute embolism and thrombosis of unspecified deep veins of unspecified lower extremity SNOMED: 088747450 Status: stable, progressing Assessment/Plan cont current rx laxatives monitor for bleeding now resumption of asa/xarelto in the short term. ivc filter- d/w pt risks and benefits and indications. she agrees Subjective ROS Limited/Unobtainable: No Constitutional: Reports: malaise, weakness HEENT: Reports: no symptoms Cardiovascular: Reports: no symptoms Respiratory: Reports: no symptoms Gastrointestinal/Abdominal: Reports: black stools, tarry stools Genitourinary: Reports: no symptoms Neurologic/Psychiatric: Reports: no symptoms Endocrine: Reports: no symptoms Hematologic/Lymphatic: Reports: anemia Allergies: Coded Allergies: PENICILLINS (Verified Allergy, Intermediate, Itching, 06/25/12) PROPOXYPHENE HCL (Verified Allergy, Intermediate, Itching, 06/25/12) TETRACYCLINE (Verified Allergy, Intermediate, Itching, 06/25/12) PROPOXYPHENE (Verified Allergy, Unknown, 06/25/12) TETRACYCLINES (Unverified Allergy, Unknown, 05/11/17) HYDROCODONE (Verified Adverse Reaction, Intermediate, GI UPSET, 05/05/16) SULFA (SULFONAMIDE ANTIBIOTICS) (Verified Adverse Reaction, Intermediate, GI UPSET, 05/05/16) All Systems: reviewed and negative except above Subjective no further bleeding noted. s/p 2 units prbcs. on clears. wants to eat. +gastric ulcer. + fecal impaction. Objective Last 24 Hour Vital Signs Date Time Temp Pulse Resp B/P (MAP) Pulse Ox O2 Delivery O2 Flow Rate FiO2 08/07/17 08:13 81 18 Room Air 21 08/07/17 07:55 98.7 80 20 137/72 97 Room Air 08/07/17 07:44 77 18 98 08/07/17 07:42 84 18 100 08/07/17 07:40 79 18 142/66 97 Room Air 08/07/17 07:35 79 21 129/64 95 Room Air 08/07/17 07:30 98.6 82 22 126/68 95 Room Air 08/07/17 04:05 97.7 78 20 132/61 94 Room Air 78 08/07/17 00:52 79 08/07/17 00:15 98.1 81 21 127/62 95 Room Air 08/06/17 20:05 98.2 90 16 129/59 97 Room Air 90 08/06/17 20:00 85 08/06/17 19:52 94 18 Room Air 21 08/06/17 16:00 88 08/06/17 15:44 98.1 95 20 142/75 98 Room Air 08/06/17 12:00 80 08/06/17 11:31 98.1 89 20 145/74 97 Room Air 08/06/17 09:51 105/98 08/06/17 09:50 86 105/98 Intake and Output 08/07/17 08/08/17 19:00 07:00 Intake Total 100 ml Balance 100 ml IV Total 100 ml Laboratory Tests 08/06/17 09:00: White Blood Count 8.6, Red Blood Count 3.42L, Hemoglobin 8.2L, Hematocrit 28.7L , Mean Corpuscular Volume 84, Mean Corpuscular Hemoglobin 24.1L, Mean Corpuscular Hemoglobin Concent 28.7L, Red Cell Distribution Width 17.0H, Platelet Count 260, Mean Platelet Volume 6.5, Neutrophils (%) (Auto) 67.5, Lymphocytes (%) (Auto) 17.4L, Monocytes (%) (Auto) 8.4, Eosinophils (%) (Auto) 5.8H, Basophils (%) (Auto) 0.9 Height (Feet): 5 Height (Inches): 7.00 Weight (Pounds): 190 Objective General Appearance: WD/WN, alert Neck: normal inspection Cardiovascular: normal rate, regular rhythm Respiratory/Chest: chest wall non-tender, lungs clear, normal breath sounds, no respiratory distress Abdomen: normal bowel sounds, non tender, soft, no organomegaly Edema: no edema noted Arm (L), no edema noted Arm (R), no edema noted Leg (L), no edema noted Leg (R), no edema noted Pedal (L), no edema noted Pedal (R), no edema noted Generalized Neurologic: alert, oriented x 3 ROSA WILSON Aug 07, 2017 08:48
[2017-08-07] MEDS: Pantoprazole Inj IVP SCH (09:49)
[2017-08-07] MEDS: Lisinopril 20mg tab ORAL SCH (09:49)
[2017-08-07] MEDS: Milk of Magnesia 30ml Ud ORAL SCH (09:49)
[2017-08-07] MEDS: Docusate 100mg cap ORAL SCH (09:50)
[2017-08-07 10:13] LABS: EOSINOPHILS % (AUTO) 5.2 % (0.0-3.0); LYMPHOCYTES % (AUTO) 19.1 % (20.0-45.0); MEAN CORPUSCULAR HEMOGLOBIN 25.1 PG (27.0-31.0); MEAN CORPUSCULAR HGB CONC 30.3 G/DL (32.0-36.0); MEAN CORPUSCULAR VOLUME 83 FL (80-99); MEAN PLATELET VOLUME 6.3 FL (6.5-10.1); MONOCYTES % (AUTO) 11.6 % (1.0-10.0); NEUTROPHILS % (AUTO) 63.1 % (45.0-75.0); PLATELET COUNT 271 K/UL (150-450); RED CELL DISTRIBUTION WIDTH 17.4 % (11.6-14.8); WHITE BLOOD COUNT 8.9 K/UL (4.8-10.8)
--- NOTE | 2017-08-07 12:39 | Diagnostic Imaging Report ---
APPROVED REPORT CPT Code: 95132 Present Symptoms Lower Extremity Pain: RIGHT LEG: Venous imaging reveals a patent deep venous system. There is no evidence of thrombus within the femoral, popliteal or tibial segments. The greater saphenous vein is also within normal limits. Doppler indicates normal spontaneous flow within these segments.
[2017-08-07] MEDS ORDERED: Heparin 2000 units/Ns 1000ml INJ ONE (14:00)
[2017-08-07] MEDS ORDERED: Lidocaine 1% Plain 30 ml INJ ONE (14:00)
--- NOTE | 2017-08-07 14:43 | General Progress Note ---
Assessment/Plan Status: stable, progressing Assessment/Plan schizoaffective -cont current meds -provided ro/st Subjective Neurologic/Psychiatric: Reports: anxiety, depressed, emotional problems Allergies: Coded Allergies: PENICILLINS (Verified Allergy, Intermediate, Itching, 06/25/12) PROPOXYPHENE HCL (Verified Allergy, Intermediate, Itching, 06/25/12) TETRACYCLINE (Verified Allergy, Intermediate, Itching, 06/25/12) PROPOXYPHENE (Verified Allergy, Unknown, 06/25/12) TETRACYCLINES (Unverified Allergy, Unknown, 05/11/17) HYDROCODONE (Verified Adverse Reaction, Intermediate, GI UPSET, 05/05/16) SULFA (SULFONAMIDE ANTIBIOTICS) (Verified Adverse Reaction, Intermediate, GI UPSET, 05/05/16) Subjective the pt is doing well no behavioral. the pt is anxious. Objective Last 24 Hour Vital Signs Date Time Temp Pulse Resp B/P (MAP) Pulse Ox O2 Delivery O2 Flow Rate FiO2 08/07/17 13:59 88 20 08/07/17 12:47 97.7 96 19 139/54 98 Room Air 08/07/17 09:49 137/72 08/07/17 09:49 81 137/72 08/07/17 08:13 81 18 Room Air 21 08/07/17 07:55 98.7 80 20 137/72 97 Room Air 08/07/17 07:44 77 18 98 08/07/17 07:42 84 18 100 08/07/17 07:40 79 18 142/66 97 Room Air 08/07/17 07:35 79 21 129/64 95 Room Air 08/07/17 07:30 98.6 82 22 126/68 95 Room Air 08/07/17 04:05 97.7 78 20 132/61 94 Room Air 78 08/07/17 00:52 79 08/07/17 00:15 98.1 81 21 127/62 95 Room Air 08/06/17 20:05 98.2 90 16 129/59 97 Room Air 90 08/06/17 20:00 85 08/06/17 19:52 94 18 Room Air 21 08/06/17 16:00 88 08/06/17 15:44 98.1 95 20 142/75 98 Room Air Intake and Output 08/07/17 08/08/17 19:00 07:00 Intake Total 420 ml Balance 420 ml Intake Oral 320 ml IV Total 100 ml # Voids 2 Laboratory Tests 08/07/17 09:45: White Blood Count 8.9, Red Blood Count 4.00L, Hemoglobin 10.0L, Hematocrit 33.2L , Mean Corpuscular Volume 83, Mean Corpuscular Hemoglobin 25.1L, Mean Corpuscular Hemoglobin Concent 30.3L, Red Cell Distribution Width 17.4H, Platelet Count 271, Mean Platelet Volume 6.3L, Neutrophils (%) (Auto) 63.1, Lymphocytes (%) (Auto) 19.1L, Monocytes (%) (Auto) 11.6H, Eosinophils (%) (Auto ) 5.2H, Basophils (%) (Auto) 1.0 Height (Feet): 5 Height (Inches): 7.00 Weight (Pounds): 190 General Appearance: no apparent distress, alert Neurologic: alert, oriented x 3, responsive, depressed affect Maria D Lofton M.D. Aug 07, 2017 14:43
--- NOTE | 2017-08-07 16:36 | Diagnostic Imaging Report ---
Indications: Deep venous thrombosis, contraindication to anticoagulation (GI bleed) Technique: Indications for procedure discussed with referring physician Dr. Wall, who described history of recent deep venous thrombosis, GI bleed contraindicate anticoagulation. The express a preference for a removable filter. Informed consent obtained prior to commencement of the procedure . Risks, benefits, alternatives discussed with patient, questions answered. She indicated her willingness to proceed. Need for subsequent filter removal also discussed with the patient. Prior CT scan reviewed, and demonstrates no caval anomalies . Residual timeout performed. Total sterile technique, including sterile probe cover and sterile gel, sterile gloves, hand hygiene, hat, mask,, sterile gown, large sterile drape, and preparation with 2% chlorhexidine utilized. Local anesthesia with 1% lidocaine. Ultrasound reveals patent compressible right internal jugular vein. Under real-time ultrasound guidance, puncture right internal jugular vein, passage of a guidewire, into the inferior vena cava, at the level of the iliac venous confluence.. An inferior venacavogram performed, using machine injection of contrast. The images were reviewed. The position of the renal veins was determined. The catheter was then exchanged for the introducer assembly of the [place] filter. The introducer assembly was advanced further into the inferior vena cava over a guidewire, and the guidewire and dilator were removed. The filter was passed into the into the sheath. It was then positioned into the appropriate position, below an inflow defect thought to possibly represent an accessory right renal vein. The filter was then deployed by unsheathing it. The filter introducer was removed, and a followup inferior venacavogram was performed using which injection of contrast through the sheath. The filter position was deemed acceptable. The sheath was removed. Pressure held on the right neck until hemostasis was achieved. The patient tolerated procedure well, without immediate complication. Total fluoroscopy time 2 minutes Total dose area product 10/13/06 dGycm2 Comparison: None Findings: Inferior venacavogram demonstrates normal caliber inferior vena cava. Equivocal accessory right renal vein. No intracaval thrombus. Completion inferior venacavogram demonstrates satisfactory filter position, with no significant tilt. Impression: Successful placement of [place] infrarenal inferior vena cava filter, as above. Per discussion with referring physician, filter removal in 6 months is recommended or when patient can resume anticoagulation, whichever is sooner.
[2017-08-07] MEDS ORDERED: Morphine Sulfate 4mg/ml Inj IVP PRN (17:30)
[2017-08-07] MEDS: Atorvastatin 20mg tab ORAL SCH (20:56)
[2017-08-08] VITALS (7 sets, daily range): BP systolic 112–140; BP diastolic 49–88
--- NOTE | 2017-08-08 02:45 | Operative Note - Dictated ---
DATE OF OPERATION: 08/07/2017 GASTROENTEROLOGY PROCEDURE REPORT SURGEON: Salena Reddy M.D. PROCEDURE: Upper gastrointestinal endoscopy with biopsy as well as rectal stool disimpaction under anesthesia as well as flexible sigmoidoscopy. PRE-ENDOSCOPIC DIAGNOSIS: Anemia. POST-ENDOSCOPIC DIAGNOSES: 1. An 8 mm gastric ulcer with a wide base seen in the antrum, status post biopsy. 2. No evidence of active bleeding in the upper gastrointestinal tract. 3. Rectal stool impaction with removal of approximately 1 to 2 pounds of stool by the examiner under anesthesia. 4. Normal flexible sigmoidoscopy to approximately 15 cm. DESCRIPTION OF PROCEDURE: The procedure, its risks, indications, alternatives, and possible complications were explained to the patient, and an informed consent was obtained. The patient had refused much of her preparation for the GI colonoscopy the night before, and therefore, the colonoscopy was felt to be very likely not possible. The diagnostic upper endoscope was introduced through the oropharynx and advanced to the duodenum without difficulty. The endoscope was then gradually withdrawn and mucosa was examined carefully. Examination of the upper gastric mucosa revealed an 8 mm circular wide-based ulcer in the distal antrum. Biopsies of the edges were sent to pathology for review. The remainder of the upper gastric mucosa examination was unremarkable. Thereafter, the patient was turned around. The rectal exam was done. The rectal exam showed significant rectal stool impaction. The rectum was disimpacted of approximately 1 pound of stool. After that, the rectal cavity was lavaged with saline and the diagnostic scope was introduced through the rectum and advanced to proximal colon 15 cm. There were no obvious lesions identified, but due to preparation precluded further evaluation. RECOMMENDATIONS: 1. Check Helicobacter pylori, treat if positive. 2. Long-term bowel regimen. 3. Repeat colonoscopy again at a later date. Thank you for asking me to participate in the care of this patient. Salena Reddy M.D. DR: STALIN JOB#: [id number] CC:
[2017-08-08] MEDS: D5NS 1,000 ML IV SCH (04:40)
[2017-08-08] MEDS: sitaGLIPtin 50mg tab ORAL SCH (06:45)
--- NOTE | 2017-08-08 08:23 | General Progress Note ---
Assessment/Plan Problem List: (1) Gastric ulcer ICD Codes: K25.9 - Gastric ulcer, unspecified as acute or chronic, without hemorrhage or perforation SNOMED: 254095534 (2) Fecal impaction ICD Codes: K56.41 - Fecal impaction SNOMED: 29056021 (3) Diabetes ICD Codes: E11.9 - Diabetes SNOMED: 13494680 (4) Dementia ICD Codes: F03.90 - Dementia SNOMED: 47241840 (5) CVA (cerebral vascular accident) ICD Codes: I63.9 - CVA (cerebral vascular accident) SNOMED: 244097088 Assessment/Plan s/p EGd and Fles sig bowel regimen ppi fu biopsy results Subjective ROS Limited/Unobtainable: Yes Allergies: Coded Allergies: PENICILLINS (Verified Allergy, Intermediate, Itching, 06/25/12) PROPOXYPHENE HCL (Verified Allergy, Intermediate, Itching, 06/25/12) TETRACYCLINE (Verified Allergy, Intermediate, Itching, 06/25/12) PROPOXYPHENE (Verified Allergy, Unknown, 06/25/12) TETRACYCLINES (Unverified Allergy, Unknown, 05/11/17) HYDROCODONE (Verified Adverse Reaction, Intermediate, GI UPSET, 05/05/16) SULFA (SULFONAMIDE ANTIBIOTICS) (Verified Adverse Reaction, Intermediate, GI UPSET, 05/05/16) Objective Last 24 Hour Vital Signs Date Time Temp Pulse Resp B/P (MAP) Pulse Ox O2 Delivery O2 Flow Rate FiO2 08/08/17 07:45 85 18 Room Air 21 08/08/17 04:00 98.2 71 20 129/88 95 Room Air 08/08/17 00:00 100.2 89 18 140/68 96 Room Air 08/07/17 20:00 97.7 79 20 112/50 Room Air 08/07/17 19:06 88 18 Room Air 21 08/07/17 15:56 97.9 92 18 130/62 95 Room Air 08/07/17 15:15 97 23 160/76 96 Room Air 08/07/17 15:10 90 18 146/65 100 Room Air 08/07/17 15:05 96 20 147/68 96 Room Air 08/07/17 15:00 94 22 139/69 97 Room Air 08/07/17 14:55 94 20 146/69 98 Room Air 08/07/17 14:50 88 25 146/69 97 Room Air 08/07/17 14:45 92 19 140/71 97 Room Air 08/07/17 13:59 88 20 08/07/17 12:47 97.7 96 19 139/54 98 Room Air 08/07/17 09:49 137/72 08/07/17 09:49 81 137/72 Laboratory Tests 08/07/17 09:45: White Blood Count 8.9, Red Blood Count 4.00L, Hemoglobin 10.0L, Hematocrit 33.2L , Mean Corpuscular Volume 83, Mean Corpuscular Hemoglobin 25.1L, Mean Corpuscular Hemoglobin Concent 30.3L, Red Cell Distribution Width 17.4H, Platelet Count 271, Mean Platelet Volume 6.3L, Neutrophils (%) (Auto) 63.1, Lymphocytes (%) (Auto) 19.1L, Monocytes (%) (Auto) 11.6H, Eosinophils (%) (Auto ) 5.2H, Basophils (%) (Auto) 1.0 Height (Feet): 5 Height (Inches): 7.00 Weight (Pounds): 190 General Appearance: alert EENT: normal ENT inspection Neck: supple Cardiovascular: normal rate Respiratory/Chest: lungs clear Abdomen: non tender, soft, hypoactive bowel sounds Extremities: non-tender DANIELE AMBROSE Aug 08, 2017 08:23
[2017-08-08] MEDS: Milk of Magnesia 30ml Ud ORAL SCH ×2 (08:48→08:58)
[2017-08-08] MEDS: Docusate 100mg cap ORAL SCH ×2 (08:49→08:58)
[2017-08-08] MEDS: Pantoprazole Inj IVP SCH (08:49)
[2017-08-08] MEDS: Lisinopril 20mg tab ORAL SCH (08:53)
--- NOTE | 2017-08-08 11:27 | General Progress Note ---
Assessment/Plan Problem List: (1) GI bleed ICD Codes: K92.2 - Gastrointestinal hemorrhage, unspecified SNOMED: 36320406 (2) Dementia ICD Codes: F03.90 - Dementia SNOMED: 19508169 (3) Diabetes ICD Codes: E11.9 - Diabetes SNOMED: 03194742 (4) Anemia ICD Codes: D64.9 - Anemia, unspecified SNOMED: 671566474 (5) DVT (deep venous thrombosis) ICD Codes: I82.409 - Acute embolism and thrombosis of unspecified deep veins of unspecified lower extremity SNOMED: 397174870 Status: stable Assessment/Plan cont current rx laxatives monitor for bleeding follow up biopsy results check ua cs dc planning Subjective ROS Limited/Unobtainable: No Constitutional: Reports: fever, malaise, weakness HEENT: Reports: no symptoms Cardiovascular: Reports: no symptoms Respiratory: Reports: no symptoms Gastrointestinal/Abdominal: Reports: no symptoms Genitourinary: Reports: no symptoms Neurologic/Psychiatric: Reports: pre-existing deficit Endocrine: Reports: no symptoms Hematologic/Lymphatic: Reports: anemia Allergies: Coded Allergies: PENICILLINS (Verified Allergy, Intermediate, Itching, 06/25/12) PROPOXYPHENE HCL (Verified Allergy, Intermediate, Itching, 06/25/12) TETRACYCLINE (Verified Allergy, Intermediate, Itching, 06/25/12) PROPOXYPHENE (Verified Allergy, Unknown, 06/25/12) TETRACYCLINES (Unverified Allergy, Unknown, 05/11/17) HYDROCODONE (Verified Adverse Reaction, Intermediate, GI UPSET, 05/05/16) SULFA (SULFONAMIDE ANTIBIOTICS) (Verified Adverse Reaction, Intermediate, GI UPSET, 05/05/16) All Systems: reviewed and negative except above Subjective no events. s/p ivc filter. + fever last night. snf refusing to take pt back Objective Last 24 Hour Vital Signs Date Time Temp Pulse Resp B/P (MAP) Pulse Ox O2 Delivery O2 Flow Rate FiO2 08/08/17 08:53 114/51 08/08/17 08:53 87 114/51 08/08/17 08:00 98.1 89 20 114/51 98 Room Air 08/08/17 07:45 85 18 Room Air 21 08/08/17 04:00 98.2 71 20 129/88 95 Room Air 08/08/17 00:00 100.2 89 18 140/68 96 Room Air 08/07/17 20:00 97.7 79 20 112/50 Room Air 08/07/17 19:06 88 18 Room Air 21 08/07/17 15:56 97.9 92 18 130/62 95 Room Air 08/07/17 15:15 97 23 160/76 96 Room Air 08/07/17 15:10 90 18 146/65 100 Room Air 08/07/17 15:05 96 20 147/68 96 Room Air 08/07/17 15:00 94 22 139/69 97 Room Air 08/07/17 14:55 94 20 146/69 98 Room Air 08/07/17 14:50 88 25 146/69 97 Room Air 08/07/17 14:45 92 19 140/71 97 Room Air 08/07/17 13:59 88 20 08/07/17 12:47 97.7 96 19 139/54 98 Room Air Intake and Output 08/08/17 08/09/17 19:00 07:00 Intake Total 360 ml Balance 360 ml Intake Oral 360 ml Height (Feet): 5 Height (Inches): 7.00 Weight (Pounds): 190 Objective General Appearance: WD/WN, alert Neck: normal inspection Cardiovascular: normal rate, regular rhythm Respiratory/Chest: chest wall non-tender, lungs clear, normal breath sounds, no respiratory distress Abdomen: normal bowel sounds, non tender, soft, no organomegaly Edema: no edema noted Arm (L), no edema noted Arm (R), no edema noted Leg (L), no edema noted Leg (R), no edema noted Pedal (L), no edema noted Pedal (R), no edema noted Generalized Neurologic: alert, oriented x 3 ROSA WILSON Aug 08, 2017 11:27
[2017-08-08] MEDS: Atorvastatin 20mg tab ORAL SCH (21:23)
[2017-08-09 04:06] VITALS: BP 110/60
[2017-08-09] MEDS: sitaGLIPtin 50mg tab ORAL SCH (06:21)
--- NOTE | 2017-08-09 06:55 | General Progress Note ---
Assessment/Plan Problem List: (1) Gastric ulcer ICD Codes: K25.9 - Gastric ulcer, unspecified as acute or chronic, without hemorrhage or perforation SNOMED: 152991020 (2) Fecal impaction ICD Codes: K56.41 - Fecal impaction SNOMED: 42601440 (3) Diabetes ICD Codes: E11.9 - Diabetes SNOMED: 46195529 (4) Dementia ICD Codes: F03.90 - Dementia SNOMED: 46012959 (5) CVA (cerebral vascular accident) ICD Codes: I63.9 - CVA (cerebral vascular accident) SNOMED: 937708250 Assessment/Plan s/p EGD and Flex sig bowel regimen ppi fu biopsy results Subjective ROS Limited/Unobtainable: Yes Allergies: Coded Allergies: PENICILLINS (Verified Allergy, Intermediate, Itching, 06/25/12) PROPOXYPHENE HCL (Verified Allergy, Intermediate, Itching, 06/25/12) TETRACYCLINE (Verified Allergy, Intermediate, Itching, 06/25/12) PROPOXYPHENE (Verified Allergy, Unknown, 06/25/12) TETRACYCLINES (Unverified Allergy, Unknown, 05/11/17) HYDROCODONE (Verified Adverse Reaction, Intermediate, GI UPSET, 05/05/16) SULFA (SULFONAMIDE ANTIBIOTICS) (Verified Adverse Reaction, Intermediate, GI UPSET, 05/05/16) Objective Last 24 Hour Vital Signs Date Time Temp Pulse Resp B/P (MAP) Pulse Ox O2 Delivery O2 Flow Rate FiO2 08/09/17 04:06 97.0 74 20 110/60 96 Room Air 08/08/17 23:55 97.0 76 20 115/58 98 Room Air 08/08/17 20:05 98.4 81 20 112/49 97 Room Air 08/08/17 20:00 88 18 Room Air 08/08/17 16:56 98.6 91 20 126/55 98 Room Air 08/08/17 12:00 98.4 88 20 136/59 96 Room Air 08/08/17 08:53 114/51 08/08/17 08:53 87 114/51 08/08/17 08:00 98.1 89 20 114/51 98 Room Air 08/08/17 07:45 85 18 Room Air 21 Height (Feet): 5 Height (Inches): 7.00 Weight (Pounds): 190 General Appearance: no apparent distress EENT: normal ENT inspection Neck: supple Cardiovascular: normal rate Respiratory/Chest: decreased breath sounds Abdomen: normal bowel sounds, non tender, soft Extremities: non-tender DANIELE AMBROSE Aug 09, 2017 06:55
[2017-08-09 08:54] VITALS: BP 143/73
[2017-08-09] MEDS: Milk of Magnesia 30ml Ud ORAL SCH ×2 (09:00→09:09)
--- NOTE | 2017-08-09 09:04 | General Progress Note ---
Assessment/Plan Problem List: (1) GI bleed ICD Codes: K92.2 - Gastrointestinal hemorrhage, unspecified SNOMED: 29243925 (2) Dementia ICD Codes: F03.90 - Dementia SNOMED: 47098381 (3) Diabetes ICD Codes: E11.9 - Diabetes SNOMED: 37808679 (4) Anemia ICD Codes: D64.9 - Anemia, unspecified SNOMED: 033397204 (5) DVT (deep venous thrombosis) ICD Codes: I82.409 - Acute embolism and thrombosis of unspecified deep veins of unspecified lower extremity SNOMED: 471005598 Status: stable, progressing Assessment/Plan cont current rx laxatives monitor for bleeding follow up biopsy results to med surg check ua cs dc planning Subjective ROS Limited/Unobtainable: No Constitutional: Reports: weakness HEENT: Reports: no symptoms Cardiovascular: Reports: no symptoms Respiratory: Reports: no symptoms Gastrointestinal/Abdominal: Reports: no symptoms Genitourinary: Reports: no symptoms Neurologic/Psychiatric: Reports: no symptoms Endocrine: Reports: no symptoms Hematologic/Lymphatic: Reports: anemia Allergies: Coded Allergies: PENICILLINS (Verified Allergy, Intermediate, Itching, 06/25/12) PROPOXYPHENE HCL (Verified Allergy, Intermediate, Itching, 06/25/12) TETRACYCLINE (Verified Allergy, Intermediate, Itching, 06/25/12) PROPOXYPHENE (Verified Allergy, Unknown, 06/25/12) TETRACYCLINES (Unverified Allergy, Unknown, 05/11/17) HYDROCODONE (Verified Adverse Reaction, Intermediate, GI UPSET, 05/05/16) SULFA (SULFONAMIDE ANTIBIOTICS) (Verified Adverse Reaction, Intermediate, GI UPSET, 05/05/16) All Systems: reviewed and negative except above Subjective no events. s/p ivc filter. + fever last night. snf refusing to take pt back. refusing iv Objective Last 24 Hour Vital Signs Date Time Temp Pulse Resp B/P (MAP) Pulse Ox O2 Delivery O2 Flow Rate FiO2 08/09/17 08:54 97.7 78 18 143/73 98 Room Air 08/09/17 07:53 78 18 Room Air 21 08/09/17 06:44 64 08/09/17 04:06 97.0 74 20 110/60 96 Room Air 08/08/17 23:55 97.0 76 20 115/58 98 Room Air 08/08/17 20:05 98.4 81 20 112/49 97 Room Air 08/08/17 20:00 88 18 Room Air 08/08/17 16:56 98.6 91 20 126/55 98 Room Air 08/08/17 12:00 98.4 88 20 136/59 96 Room Air Height (Feet): 5 Height (Inches): 7.00 Weight (Pounds): 190 Objective General Appearance: WD/WN, alert Neck: normal inspection Cardiovascular: normal rate, regular rhythm Respiratory/Chest: chest wall non-tender, lungs clear, normal breath sounds, no respiratory distress Abdomen: normal bowel sounds, non tender, soft, no organomegaly Edema: no edema noted Arm (L), no edema noted Arm (R), no edema noted Leg (L), no edema noted Leg (R), no edema noted Pedal (L), no edema noted Pedal (R), no edema noted Generalized Neurologic: alert, oriented x 3 ROSA WILSON Aug 09, 2017 09:04
[2017-08-09] MEDS: Docusate 100mg cap ORAL SCH (09:09)
[2017-08-09] MEDS: Lisinopril 20mg tab ORAL SCH (09:09)
[2017-08-09 12:34] VITALS: BP 140/71
[2017-08-09] MEDS ORDERED: Albuterol/Ipratropium 3ml neb HHN PRN (13:00)
[2017-08-09] MEDS ORDERED: HYDROmorphone 1mg/ml Carpuject IVP PRN (13:15)
[2017-08-09 15:50] VITALS: BP 132/69
[2017-08-09 20:00] VITALS: BP 116/58
[2017-08-09] MEDS: NovoLOG Insulin Flexpen SUBQ SCH (20:32)
[2017-08-09] MEDS ORDERED: Atorvastatin 20mg tab ORAL SCH (21:00)
--- NOTE | 2017-08-09 22:57 | General Progress Note ---
Assessment/Plan Status: stable Assessment/Plan schizoaffective -cont current meds -provided ro/st Subjective Date patient seen: Aug 08, 2017 Neurologic/Psychiatric: Reports: anxiety, depressed, emotional problems Allergies: Coded Allergies: PENICILLINS (Verified Allergy, Intermediate, Itching, 06/25/12) PROPOXYPHENE HCL (Verified Allergy, Intermediate, Itching, 06/25/12) TETRACYCLINE (Verified Allergy, Intermediate, Itching, 06/25/12) PROPOXYPHENE (Verified Allergy, Unknown, 06/25/12) TETRACYCLINES (Unverified Allergy, Unknown, 05/11/17) HYDROCODONE (Verified Adverse Reaction, Intermediate, GI UPSET, 05/05/16) SULFA (SULFONAMIDE ANTIBIOTICS) (Verified Adverse Reaction, Intermediate, GI UPSET, 05/05/16) Subjective the pt was upset was asking for more food. low tolerance for stress Objective Last 24 Hour Vital Signs Date Time Temp Pulse Resp B/P (MAP) Pulse Ox O2 Delivery O2 Flow Rate FiO2 08/09/17 20:00 98.1 74 18 116/58 97 Room Air 08/09/17 15:50 98.4 84 20 132/69 99 Room Air 08/09/17 12:34 97.3 78 18 140/71 99 Room Air 08/09/17 09:09 143/73 08/09/17 09:09 78 143/73 08/09/17 08:54 97.7 78 18 143/73 98 Room Air 08/09/17 08:00 75 08/09/17 07:53 78 18 Room Air 21 08/09/17 06:44 64 08/09/17 04:06 97.0 74 20 110/60 96 Room Air 08/08/17 23:55 97.0 76 20 115/58 98 Room Air Intake and Output 08/09/17 08/10/17 19:00 07:00 Intake Total 1130 ml Balance 1130 ml Intake Oral 1130 ml # Voids 4 Height (Feet): 5 Height (Inches): 7.00 Weight (Pounds): 190 General Appearance: WD/WN, no apparent distress, alert Neurologic: alert, oriented x 3, responsive, depressed affect Maria D Lofton M.D. Aug 09, 2017 22:57
[2017-08-10] MEDS: NovoLOG Insulin Flexpen SUBQ SCH ×2 (06:28→12:17)
[2017-08-10] MEDS ORDERED: sitaGLIPtin 50mg tab ORAL SCH (06:30)
[2017-08-10 08:00] VITALS: BP 115/45
[2017-08-10 08:34] LABS: EOSINOPHILS % (AUTO) 6.2 % (0.0-3.0); LYMPHOCYTES % (AUTO) 24.4 % (20.0-45.0); MEAN CORPUSCULAR HEMOGLOBIN 25.2 PG (27.0-31.0); MEAN CORPUSCULAR HGB CONC 30.7 G/DL (32.0-36.0); MEAN CORPUSCULAR VOLUME 82 FL (80-99); MEAN PLATELET VOLUME 6.6 FL (6.5-10.1); MONOCYTES % (AUTO) 10.8 % (1.0-10.0); NEUTROPHILS % (AUTO) 57.6 % (45.0-75.0); PLATELET COUNT 333 K/UL (150-450); RED BLOOD COUNT 3.91 M/UL (4.20-5.40); RED CELL DISTRIBUTION WIDTH 17.4 % (11.6-14.8); WHITE BLOOD COUNT 7.1 K/UL (4.8-10.8)
[2017-08-10 09:00] LABS: ALANINE AMINOTRANSFERASE 11 U/L (12-78); ALBUMIN/GLOBULIN RATIO 0.6 (1.0-2.7); ANION GAP 9 mmol/L (5-15); ASPARTATE AMINO TRANSFERASE 11 U/L (15-37); CALCIUM 9.3 MG/DL (8.5-10.1); CARBON DIOXIDE 26 MMOL/L (21-32); CHLORIDE 100 MMOL/L (98-107); CREATININE 1.5 MG/DL (0.55-1.30); POTASSIUM 4.4 MMOL/L (3.5-5.1); SODIUM 135 MMOL/L (136-145); TOTAL PROTEIN 7.9 G/DL (6.4-8.2)
[2017-08-10] MEDS ORDERED: Milk of Magnesia 30ml Ud ORAL SCH (09:00)
[2017-08-10] MEDS ORDERED: Lisinopril 20mg tab ORAL SCH (09:00)
[2017-08-10] MEDS ORDERED: Docusate 100mg cap ORAL SCH (09:00)
[2017-08-10 12:00] VITALS: BP 119/51
[2017-08-10] MEDS ORDERED: D5NS 1000ml IV ONE (15:59)
--- NOTE | 2017-08-10 21:57 | General Progress Note ---
Assessment/Plan Status: stable Assessment/Plan schizoaffective -cont current meds -provided ro/st Subjective Neurologic/Psychiatric: Reports: anxiety, depressed, emotional problems Allergies: Coded Allergies: PENICILLINS (Verified Allergy, Intermediate, Itching, 06/25/12) PROPOXYPHENE HCL (Verified Allergy, Intermediate, Itching, 06/25/12) TETRACYCLINE (Verified Allergy, Intermediate, Itching, 06/25/12) PROPOXYPHENE (Verified Allergy, Unknown, 06/25/12) TETRACYCLINES (Unverified Allergy, Unknown, 05/11/17) HYDROCODONE (Verified Adverse Reaction, Intermediate, GI UPSET, 05/05/16) SULFA (SULFONAMIDE ANTIBIOTICS) (Verified Adverse Reaction, Intermediate, GI UPSET, 05/05/16) Subjective the pt was upset was asking for more food. low tolerance for stress Objective Last 24 Hour Vital Signs Date Time Temp Pulse Resp B/P (MAP) Pulse Ox O2 Delivery O2 Flow Rate FiO2 08/10/17 12:00 97.7 66 18 119/51 98 Room Air 08/10/17 08:46 115/45 08/10/17 08:46 89 115/45 08/10/17 08:00 97.5 89 17 115/45 97 Room Air 08/10/17 07:40 80 18 Room Air 21 Laboratory Tests 08/10/17 07:15: White Blood Count 7.1, Red Blood Count 3.91L, Hemoglobin 9.8L, Hematocrit 32.0L , Mean Corpuscular Volume 82, Mean Corpuscular Hemoglobin 25.2L, Mean Corpuscular Hemoglobin Concent 30.7L, Red Cell Distribution Width 17.4H, Platelet Count 333, Mean Platelet Volume 6.6, Neutrophils (%) (Auto) 57.6, Lymphocytes (%) (Auto) 24.4, Monocytes (%) (Auto) 10.8H, Eosinophils (%) (Auto) 6.2H, Basophils (%) (Auto) 1.0, Sodium Level 135L, Potassium Level 4.4, Chloride Level 100, Carbon Dioxide Level 26, Anion Gap 9, Blood Urea Nitrogen 13 , Creatinine 1.5H, Estimat Glomerular Filtration Rate , Glucose Level 207H, Calcium Level 9.3, Total Bilirubin 0.3, Aspartate Amino Transf (AST/SGOT) 11L, Alanine Aminotransferase (ALT/SGPT) 11L, Alkaline Phosphatase 63, Total Protein 7.9, Albumin 3.1L, Globulin 4.8, Albumin/Globulin Ratio 0.6L Height (Feet): 5 Height (Inches): 7.00 Weight (Pounds): 190 General Appearance: no apparent distress, alert Neurologic: responsive, normal mood/affect, depressed affect Maria D Lofton M.D. Aug 10, 2017 21:57
--- NOTE | 2017-08-10 22:34 | General Progress Note ---
Assessment/Plan Assessment/Plan Assessment - GIB - Anemia - CT changes c/w proctitis - h/o PUD - h/o DVT, on anticoagulation - psych disorder - declined recommended colonic preparation Recommendations - po diet - d/ planning - outpt f/u with GI if patient agrees to colonosopy prep - Monitor H&H as oupt Subjective Allergies: Coded Allergies: PENICILLINS (Verified Allergy, Intermediate, Itching, 06/25/12) PROPOXYPHENE HCL (Verified Allergy, Intermediate, Itching, 06/25/12) TETRACYCLINE (Verified Allergy, Intermediate, Itching, 06/25/12) PROPOXYPHENE (Verified Allergy, Unknown, 06/25/12) TETRACYCLINES (Unverified Allergy, Unknown, 05/11/17) HYDROCODONE (Verified Adverse Reaction, Intermediate, GI UPSET, 05/05/16) SULFA (SULFONAMIDE ANTIBIOTICS) (Verified Adverse Reaction, Intermediate, GI UPSET, 05/05/16) Subjective d/w patient re last week colonoscopy advised anemia can be a sign of colon CA advised to f/u with me as outpt IF she decides to go though colonoscopy Objective Last 24 Hour Vital Signs Date Time Temp Pulse Resp B/P (MAP) Pulse Ox O2 Delivery O2 Flow Rate FiO2 08/10/17 12:00 97.7 66 18 119/51 98 Room Air 08/10/17 08:46 115/45 08/10/17 08:46 89 115/45 08/10/17 08:00 97.5 89 17 115/45 97 Room Air 08/10/17 07:40 80 18 Room Air 21 Laboratory Tests 08/10/17 07:15: White Blood Count 7.1, Red Blood Count 3.91L, Hemoglobin 9.8L, Hematocrit 32.0L , Mean Corpuscular Volume 82, Mean Corpuscular Hemoglobin 25.2L, Mean Corpuscular Hemoglobin Concent 30.7L, Red Cell Distribution Width 17.4H, Platelet Count 333, Mean Platelet Volume 6.6, Neutrophils (%) (Auto) 57.6, Lymphocytes (%) (Auto) 24.4, Monocytes (%) (Auto) 10.8H, Eosinophils (%) (Auto) 6.2H, Basophils (%) (Auto) 1.0, Sodium Level 135L, Potassium Level 4.4, Chloride Level 100, Carbon Dioxide Level 26, Anion Gap 9, Blood Urea Nitrogen 13 , Creatinine 1.5H, Estimat Glomerular Filtration Rate , Glucose Level 207H, Calcium Level 9.3, Total Bilirubin 0.3, Aspartate Amino Transf (AST/SGOT) 11L, Alanine Aminotransferase (ALT/SGPT) 11L, Alkaline Phosphatase 63, Total Protein 7.9, Albumin 3.1L, Globulin 4.8, Albumin/Globulin Ratio 0.6L Height (Feet): 5 Height (Inches): 7.00 Weight (Pounds): 190 Objective Elderly AA woman NCAT supple CTA RRR soft , NT no edema MIRNA LEDEZMA Aug 10, 2017 22:34
--- NOTE | 2017-08-13 18:20 | Discharge Summary ---
Discharge Summary Hospital Course Date of Admission Aug 05, 2017 at 00:30 Date of Discharge Aug 10, 2017 at 15:30 Admitting Diagnosis PROCTOCOLITIS HPI Margarita Blunt is a 77 year old female who was admitted on Aug 05, 2017 at 00: 30 for Proctocolitis Hospital Course [id number] Discharge Discharge Disposition Patient was discharged to SNF/Subacute Facility(03) Discharge Diagnoses: Tiffanie Wilkerson NP Aug 13, 2017 18:20
--- NOTE | 2017-08-14 01:00 | Discharge Summary 2 SIG ---
DATE OF ADMISSION: 08/05/2017 DATE OF DISCHARGE: 08/10/2017 CONSULTANTS: 1. Salena Reddy M.D. 2. Maria D Lofton M.D. BRIEF HOSPITAL COURSE: The patient is a 77-year-old female with prior history of stroke, DVT, hypertension, hyperlipidemia, and diabetes with psychiatric disorder. She was transferred from residential facility for complaints of bright red blood and dark stools for the past two weeks. On the day of admission, she had bright red blood stools. On evaluation at ED was noted to have hemoglobin of 6.8. She was admitted for GI bleed. The patient has been on Xarelto for DVT. Aspirin and Xarelto were discontinued. She received two units packed RBC blood transfusion. Abdominal and pelvic CAT scan done showed distention of the rectum as well as distal signal stool suspect rectal fecal impaction. There was wall thickening of the distal rectum and inflammatory change that may indicate proctitis. There was presence of mild diffuse borderline distention of the small bowel proximally reflecting mild ileus. Dr. Reddy was consulted. The patient was recommended to undergo endoscopy; however, the patient agreed only if she will get regular diet. Explained the need for clear liquid diet; however, the patient declined. GI preparation done per patient wishes. On 08/07/2017, she underwent upper gastrointestinal endoscopy with biopsy as well as rectal stool disimpaction under anesthesia as well as flexible sigmoidoscopy. Findings showed an 8 mm gastric ulcer with a wide base seen in the antrum. There was no active bleeding in the upper GI tract. Rectal stool impaction was done with removal of approximately 1 to 2 pounds of stool. There was normal flexible sigmoidoscopy up to approximately 15 cm. Biopsy result was negative for dysplasia or malignancy. No H. pylori identified. She was also seen by psychiatrist. The patient has history of schizophrenia. Risperdal was increased to 6 mg at bedtime. She was given laxatives and was eventually discharged back to SNF. She was informed the need to follow up to undergo full colonoscopy as outpatient. FINAL DIAGNOSES: 1. Acute gastrointestinal bleed. 2. Dementia. 3. Diabetes. 4. Acute anemia requiring blood transfusion. 5. 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 6. Schizoaffective disorder. 7. Proctitis. 8. Gastric ulcer. 9. Rectal stool impaction, status post disimpaction. 10. Status post upper gastrointestinal endoscopy with biopsy. 11. Status post rectal stool disimpaction as well as flexible sigmoidoscopy. Tam Wall M.D. I have been assigned to dictate discharge summary on this account and I was not involved in the patient's management. Tiffanie Wilkerson N.P. DR: KAI JOB#: [id number] CC: NICOLE
== END 2017-08-10 15:30 | DRG 357 ==
LOC: EDBD 21:40 → EMR 21:52 → 2E 08-05 00:30 → EDBEDREQ 08-05 05:15 → 4W 08-09 13:25
PROC: 30233N1 Transfusion of Nonautologous Red Blood Cells into Peripheral Vein, Percutaneous Approach (ICD-10-PCS; principal; 2017-08-05)
PROC: 06H03DZ Insertion of Intraluminal Device into Inferior Vena Cava, Percutaneous Approach (ICD-10-PCS; 2017-08-07 07:05)
PROC: 0DB78ZX Excision of Stomach, Pylorus, Via Natural or Artificial Opening Endoscopic, Diagnostic (ICD-10-PCS; 2017-08-07 07:05)
PROC: 0DJD8ZZ Inspection of Lower Intestinal Tract, Via Natural or Artificial Opening Endoscopic (ICD-10-PCS; 2017-08-07 07:05)
DX: K92.2 Gastrointestinal hemorrhage, unspecified (principal); I82.509 Chronic embolism and thrombosis of unspecified deep veins of unspecified lower extremity; I82.409 Acute embolism and thrombosis of unspecified deep veins of unspecified lower extremity; F03.90 Unspecified dementia, unspecified severity, without behavioral disturbance, psychotic disturbance, mood disturbance, and anxiety; D62 Acute posthemorrhagic anemia; E11.9 Type 2 diabetes mellitus without complications; K25.9 Gastric ulcer, unspecified as acute or chronic, without hemorrhage or perforation; K56.41 Fecal impaction; Z79.01 Long term (current) use of anticoagulants; Z88.6 Allergy status to analgesic agent; Z88.0 Allergy status to penicillin; Z88.2 Allergy status to sulfonamides; Z88.8 Allergy status to other drugs, medicaments and biological substances; I10 Essential (primary) hypertension; E78.5 Hyperlipidemia, unspecified; Z86.73 Personal history of transient ischemic attack (TIA), and cerebral infarction without residual deficits; F25.9 Schizoaffective disorder, unspecified; K62.89 Other specified diseases of anus and rectum
CPT/HCPCS: 36415; 74176; 76937; 80048; 80053; 82962; 83690; 84484; 85007; 85025; 85610; 85730; 86850; 86900; 86901; 86920; 87081; 93005; 93971; 94003; 94150; 94664; 99285; J1815; J2405

== ENCOUNTER 2017-12-10 20:34 | Inpatient (IN) | payer MEDICARE, MEDICAID ==
[~2017-12-10] VITALS: Ht 167.6 cm; Wt 81.6 kg
[~2017-12-10 20:34] MED LIST changes: +CRANBERRY400 MG PO; +DOCUSATE SODIU100 MG ORAL
[2017-12-10 21:20] VITALS: BP 153/64
--- NOTE | 2017-12-10 21:38 | Emergency Room Report ---
History of Present Illness General Chief Complaint: Edema Source: Patient, Medical Record Present Illness HPI 77-year-old female, history of psychiatric disorder, anxiety, hypertension, CVA , wheelchair-bound, history of DVT, not any anticoagulation to 2 GI bleed/ gastric ulcer, presenting with bilateral lower extremity edema and pain for 2 weeks, left worse than right. Per medical records patient has acute DVT in left lower extremity Patient states that pain is constant, denies any chest pain shortness of breath nausea or vomiting. Patient's abdomen is noted to be distended, denies any abdominal pain, states that her abdomen always is distended. Denies any nausea vomiting diarrhea. Denies any constipation Allergies: Coded Allergies: PENICILLINS (Verified Allergy, Intermediate, Itching, 06/25/12) PROPOXYPHENE HCL (Verified Allergy, Intermediate, Itching, 06/25/12) TETRACYCLINE (Verified Allergy, Intermediate, Itching, 06/25/12) PROPOXYPHENE (Verified Allergy, Unknown, 06/25/12) TETRACYCLINES (Unverified Allergy, Unknown, 05/11/17) HYDROCODONE (Verified Adverse Reaction, Intermediate, GI UPSET, 05/05/16) SULFA (SULFONAMIDE ANTIBIOTICS) (Verified Adverse Reaction, Intermediate, GI UPSET, 05/05/16) Patient History Past Medical History: see triage record Past Surgical History: none Pertinent Family History: none Reviewed Nursing Documentation: PMH: Agreed, PSxH: Agreed Nursing Documentation-PMH Hx Hypertension: Yes Hx Diabetes: Yes - dm2 Hx Cancer: No Hx Neurological Problems: No - DVT of left leg, Dysphasia Hx Cerebrovascular Accident: Yes Hx Dementia: Yes 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 Hx Memory Loss: Yes - short term Hx Speech Problem: No Hx Dysphasia: Yes Hx Weakness: Yes Review of Systems All Other Systems: negative except mentioned in HPI Physical Exam Vital Signs Date Time Temp Pulse Resp B/P (MAP) Pulse Ox O2 Delivery O2 Flow Rate FiO2 12/10/17 21:10 98.7 100 20 138/68 93 Room Air 98.8 Sp02 EP Interpretation: reviewed, normal General Appearance: alert, GCS 15, non-toxic, mild distress Head: normocephalic, atraumatic Eyes: bilateral eye normal inspection, bilateral eye PERRL, bilateral eye EOMI ENT: normal ENT inspection, normal pharynx, normal voice, moist mucus membranes Neck: normal inspection, full range of motion, supple Respiratory: normal inspection, lungs clear, normal breath sounds, no respiratory distress, no retraction, no wheezing, speaking full sentences, chest symmetrical Cardiovascular #1: normal inspection, regular rate, rhythm, normal capillary refill Cardiovascular #2: 2+ radial (R), 2+ radial (L) Gastrointestinal: non tender, soft, other - Distended abdomen, nontender throughout entire abdomen, no guarding no rebound, normal bowel sounds Musculoskeletal: other - Bilateral lower extremities with 2+ pedal edema, left is worse than right, tender to palpation bilateral Neurologic: normal inspection, alert, oriented x3, responsive, motor strength/ tone normal, sensory intact, speech normal Psychiatric: normal inspection, judgement/insight normal, memory normal Skin: normal inspection, normal color, no rash, warm/dry, well hydrated, normal turgor Medical Decision Making Diagnostic Impression: Primary Impression: DVT (deep venous thrombosis) ER Course 77-year-old female with bilateral lower extremity edema DDX: DVT vs. cellulitis Plan: Obtain labs, ua, EKG, CXR, ultrasound ER course: Patient has been monitored during ED stay, HD stable Unable to obtain full vascular study as patient is not cooperating, however limited ultrasound is suspicious for DVT in left side Will hold anticoagulation for now as patient has a history of GI bleed requiring transfusion, will require IVC filter inpatient Vital signs are normal, not hypoxic Disposition: Patient is to be admitted to [facility] D/W hospitalist Dr Tam Wall Please note that this Emergency Department Report was dictated using [employer] billing adjudicator technology software, occasionally this can lead to erroneous entry secondary to interpretation by the dictation equipment. EKG Diagnostic Results EP Interpretation: Yes Rate: normal Rhythm: NSR ST Segments: No acute changes ASA given to patient: No Rhythm Strip EP Interpretation: Yes Rate: 95 Rhythm: NSR, no PVCs, no ectopy Chest X-ray CXR: Ordered: Yes 1 view Indication: pain EP interpretation: Yes Interpretation: No consolidation, no effusion, no PTX, no acute cardiopulmonary disease Impression: No acute disease Electronically signed by Ning Gonzalez MD Laboratory Tests Test 12/10/17 21:48 White Blood Count 8.3 K/UL (4.8-10.8) Red Blood Count 4.89 M/UL (4.20-5.40) Hemoglobin 11.2 G/DL (12.0-16.0) L Hematocrit 36.4 % (37.0-47.0) L Mean Corpuscular Volume 75 FL (80-99) L Mean Corpuscular Hemoglobin 23.0 PG (27.0-31.0) L Mean Corpuscular Hemoglobin Concent 30.8 G/DL (32.0-36.0) L Red Cell Distribution Width 15.6 % (11.6-14.8) H Platelet Count 292 K/UL (150-450) Mean Platelet Volume 7.8 FL (6.5-10.1) Neutrophils (%) (Auto) 60.5 % (45.0-75.0) Lymphocytes (%) (Auto) 26.2 % (20.0-45.0) Monocytes (%) (Auto) 8.8 % (1.0-10.0) Eosinophils (%) (Auto) 3.5 % (0.0-3.0) H Basophils (%) (Auto) 1.1 % (0.0-2.0) Prothrombin Time 9.6 SEC (9.30-11.50) Prothrombin Time INR 0.9 (0.9-1.1) PTT 26 SEC (23-33) Sodium Level 134 MMOL/L (136-145) L Potassium Level 4.2 MMOL/L (3.5-5.1) Chloride Level 99 MMOL/L (98-107) Carbon Dioxide Level 29 MMOL/L (21-32) Anion Gap 6 mmol/L (5-15) Blood Urea Nitrogen 14 mg/dL (7-18) Creatinine 1.4 MG/DL (0.55-1.30) H Estimate Glomerular Filtration Rate mL/min (>60) Glucose Level 194 MG/DL (74-106) H Calcium Level 9.6 MG/DL (8.5-10.1) Total Bilirubin 0.2 MG/DL (0.2-1.0) Aspartate Amino Transferase (AST) 18 U/L (15-37) Alanine Aminotransferase (ALT) 19 U/L (12-78) Alkaline Phosphatase 132 U/L (46-116) H Troponin I 0.000 ng/mL (0.000-0.056) Pro-B-Type Natriuretic Peptide 230 pg/mL (0-125) H Total Protein 8.6 G/DL (6.4-8.2) H Albumin 3.2 G/DL (3.4-5.0) L Globulin 5.4 g/dL Albumin/Globulin Ratio 0.6 (1.0-2.7) L Last Vital Signs Date Time Temp Pulse Resp B/P (MAP) Pulse Ox O2 Delivery O2 Flow Rate FiO2 12/10/17 21:20 98.7 98 31 153/64 97 Room Air 98.7 Disposition: ADMITTED INPATIENT Condition: Serious BrenoNing M.D. Dec 10, 2017 21:38
[2017-12-10] MEDS ORDERED: TYLENOL EXTRA500 MG ORAL (22:04)
[2017-12-10] MEDS ORDERED: MELATONIN5 M6 PO (22:04)
[2017-12-10] MEDS ORDERED: PROTONIX40 MG ORAL (22:04)
[2017-12-10] MEDS ORDERED: MULTIVITAMINS1 EAC8 ORAL (22:04)
[2017-12-10 22:25] LABS: BASOPHILS % (AUTO) 1.1 % (0.0-2.0); EOSINOPHILS % (AUTO) 3.5 % (0.0-3.0); HEMATOCRIT 36.4 % (37.0-47.0); HEMOGLOBIN 11.2 G/DL (12.0-16.0); LYMPHOCYTES % (AUTO) 26.2 % (20.0-45.0); MEAN CORPUSCULAR VOLUME 75 FL (80-99); MONOCYTES % (AUTO) 8.8 % (1.0-10.0); NEUTROPHILS % (AUTO) 60.5 % (45.0-75.0); PLATELET COUNT 292 K/UL (150-450); RED BLOOD COUNT 4.89 M/UL (4.20-5.40); RED CELL DISTRIBUTION WIDTH 15.6 % (11.6-14.8); WHITE BLOOD COUNT 8.3 K/UL (4.8-10.8)
[2017-12-10 22:32] LABS: INR 0.9 (0.9-1.1)
[2017-12-10 22:41] LABS: ANION GAP 6 mmol/L (5-15); BLOOD UREA NITROGEN 14 mg/dL (7-18); CALCIUM 9.6 MG/DL (8.5-10.1); CARBON DIOXIDE 29 MMOL/L (21-32); CHLORIDE 99 MMOL/L (98-107); CREATININE 1.4 MG/DL (0.55-1.30); POTASSIUM 4.2 MMOL/L (3.5-5.1); SODIUM 134 MMOL/L (136-145)
[2017-12-10 22:53] LABS: ALANINE AMINOTRANSFERASE 19 U/L (12-78); ALBUMIN 3.2 G/DL (3.4-5.0); ALBUMIN/GLOBULIN RATIO 0.6 (1.0-2.7); ALKALINE PHOSPHATASE 132 U/L (46-116); ASPARTATE AMINO TRANSFERASE 18 U/L (15-37); BILIRUBIN,TOTAL 0.2 MG/DL (0.2-1.0)
[2017-12-10 23:30] VITALS: BP 113/68
[2017-12-11] VITALS (7 sets, daily range): BP systolic 105–152; BP diastolic 46–72
[2017-12-11] MEDS ORDERED: Albuterol/Ipratropium 3ml neb HHN PRN ×2 (01:30→02:00)
[2017-12-11] MEDS ORDERED: Milk of Magnesia 30ml Ud ORAL PRN (01:30)
[2017-12-11] MEDS ORDERED: Acetaminophen 500mg (ES) tab ORAL PRN (01:30)
[2017-12-11] MEDS ORDERED: Acetaminophen 650mg/20.3ml ORAL PRN (02:00)
[2017-12-11] MEDS ORDERED: Fleet's Enema 133ml RECTAL PRN (02:00)
[2017-12-11] MEDS ORDERED: traMADol 50mg tab ORAL SCH (02:00)
[2017-12-11] MEDS ORDERED: TYLENOL650 MG/20. ORAL (02:21)
[2017-12-11] MEDS ORDERED: LISINOPRIL20 MG ORAL (02:21)
[2017-12-11] MEDS ORDERED: MELATONIN5 M6 PO (02:21)
[2017-12-11] MEDS ORDERED: CLONIDINE HCL0.1 MG PO (02:21)
[2017-12-11] MEDS ORDERED: FLEET ENEMA133 M1 RC (02:21)
[2017-12-11] MEDS ORDERED: TRAMADOL HCL50 MG ORAL (02:21)
[2017-12-11] MEDS: NovoLOG Insulin Flexpen SUBQ SCH ×4 (06:07→21:10)
[2017-12-11] MEDS: traMADol 50mg tab ORAL SCH ×3 (07:59→21:07)
[2017-12-11] MEDS ORDERED: Lisinopril 20mg tab ORAL SCH (09:00)
[2017-12-11] MEDS: Docusate 100mg cap ORAL SCH (09:39)
[2017-12-11] MEDS: Multivitamin w/Minerals tab ORAL SCH (09:39)
[2017-12-11] MEDS: Lisinopril 20mg tab ORAL SCH (09:39)
[2017-12-11] MEDS: Heparin 5000 units/ml inj SUBQ SCH ×2 (09:45→21:09)
--- NOTE | 2017-12-11 10:48 | Diagnostic Imaging Report ---
Indication: Chest pain Comparison: 05/05/2016 A single view chest radiograph was obtained. Findings: No definite infiltrate or pulmonary vascular congestion identified. The heart is borderline enlarged. The aorta is mildly enlarged consistent with atherosclerotic vascular disease. The bones are osteopenic. Impression: No acute disease
[2017-12-11] MEDS: Vancomycin 500 MG in NS 110 ML IVPB SCH (11:43)
--- NOTE | 2017-12-11 15:30 | History and Physical Report ---
DATE OF ADMISSION: 12/10/2017 CHIEF COMPLAINT: Lower extremity edema, DVT, and possible cellulitis. HISTORY OF PRESENT ILLNESS: The patient is a pleasant 77-year-old female. She has multiple medical problems including a history of hypertensive heart disease, diabetes, and hyperlipidemia. She has a history of bipolar disorder. She has a prior history of DVT, status post IVC filter. [facility] from a [facility] facility with complaints of lower extremity edema. She states that for the last week, her lower extremities have been more swollen. Apparently, a venous duplex done at the [facility] showed a DVT. She has a prior history of GI bleed, and therefore, has not had an IVC filter placed that has been in place now. The patient otherwise denies any fevers or chills. No chest pain or shortness of breath. PAST MEDICAL HISTORY: As above. PAST SURGICAL HISTORY: None. CURRENT MEDICATIONS: Reconciled and reviewed. ALLERGIES: Hydrocodone, penicillin, propoxyphene, sulfa, and tetracycline. FAMILY HISTORY: Noncontributory. SOCIAL HISTORY: There is no known history of tobacco, ethanol, or drugs. REVIEW OF SYSTEMS: GENERAL: No fevers or chills. HEENT: No headaches or visual changes. CARDIOPULMONARY: No chest pain or shortness of breath. GASTROINTESTINAL: No nausea or vomiting. GENITOURINARY: No urgency or frequency. MUSCULOSKELETAL: Positive leg pain. NEUROLOGIC: No evidence of seizures. PHYSICAL EXAMINATION: VITAL SIGNS: Temperature 97.7, pulse 66, respirations 18, and blood pressure 98/51. GENERAL: The patient is well developed, in no apparent distress. HEART: Regular rate and rhythm. LUNGS: Clear. ABDOMEN: Soft, nontender, and nondistended. EXTREMITIES: Without clubbing or cyanosis. There is 1+ to 2+ edema with excoriations, and mild warmth and erythema. ASSESSMENT: This is a pleasant female with complaints of lower extremity swelling and edema, possibly secondary to cellulitis. The patient did have a history of deep venous thrombosis. Because of gastrointestinal bleeding, she is not a candidate for anticoagulation. PLAN: IV antibiotics. Elevate legs. Consider IV Lasix. Discontinue amlodipine as this may exacerbate the patient's swelling. Tam Wall M.D. DR: LULY JOB#: [id number] CC:
[2017-12-11] MEDS: Atorvastatin 20mg tab ORAL SCH (21:06)
[2017-12-12] VITALS: BP 129/57
[2017-12-12] MEDS: traMADol 50mg tab ORAL SCH ×4 (02:00→20:16)
[2017-12-12 04:00] VITALS: BP 112/50
[2017-12-12] MEDS: NovoLOG Insulin Flexpen SUBQ SCH ×4 (05:56→20:20)
--- NOTE | 2017-12-12 08:25 | General Progress Note ---
Assessment/Plan Problem List: (1) Cellulitis of lower extremity ICD Codes: L03.119 - Cellulitis of unspecified part of limb SNOMED: 652868692 (2) acute sepsis (3) Altered mental status ICD Codes: R41.82 - Altered mental status, unspecified SNOMED: 773174652 (4) GI bleed ICD Codes: K92.2 - Gastrointestinal hemorrhage, unspecified SNOMED: 51876830 (5) DVT (deep venous thrombosis) ICD Codes: I82.409 - Acute embolism and thrombosis of unspecified deep veins of unspecified lower extremity SNOMED: 500792455 Status: stable, progressing Assessment/Plan iv abx check urine studies elevate legs check influenza Subjective ROS Limited/Unobtainable: No Constitutional: Reports: malaise, weakness HEENT: Reports: no symptoms Cardiovascular: Reports: no symptoms Respiratory: Reports: no symptoms Gastrointestinal/Abdominal: Reports: no symptoms Genitourinary: Reports: no symptoms Neurologic/Psychiatric: Reports: no symptoms Endocrine: Reports: no symptoms Hematologic/Lymphatic: Reports: no symptoms Allergies: Coded Allergies: PENICILLINS (Verified Allergy, Intermediate, Itching, 06/25/12) PROPOXYPHENE HCL (Verified Allergy, Intermediate, Itching, 06/25/12) TETRACYCLINE (Verified Allergy, Intermediate, Itching, 06/25/12) PROPOXYPHENE (Verified Allergy, Unknown, 06/25/12) TETRACYCLINES (Unverified Allergy, Unknown, 05/11/17) HYDROCODONE (Verified Adverse Reaction, Intermediate, GI UPSET, 05/05/16) SULFA (SULFONAMIDE ANTIBIOTICS) (Verified Adverse Reaction, Intermediate, GI UPSET, 05/05/16) All Systems: reviewed and negative except above Subjective leg pain. low grade fever. on abx for LE cellulitis Objective Last 24 Hour Vital Signs Date Time Temp Pulse Resp B/P (MAP) Pulse Ox O2 Delivery O2 Flow Rate FiO2 12/12/17 04:00 93 Room Air 12/12/17 04:00 96.8 94 18 112/50 93 Room Air 96.8 12/12/17 00:00 93 Room Air 12/12/17 00:00 99.5 95 20 129/57 93 Room Air 99.5 12/11/17 22:11 99.9 12/11/17 21:07 99.9 12/11/17 20:00 92 Room Air 12/11/17 20:00 99.9 107 21 152/72 92 Room Air 99.9 12/11/17 19:15 101 20 Room Air 12/11/17 16:03 99.8 97 20 133/67 96 99.8 12/11/17 14:18 98.1 12/11/17 11:33 98.1 96 20 133/58 95 98.1 12/11/17 09:39 122/62 12/11/17 09:13 119 20 Room Air Intake and Output 12/11/17 12/12/17 19:00 07:00 Intake Total 840 ml Balance 840 ml Intake Oral 840 ml # Voids 4 4 Height (Feet): 5 Height (Inches): 6.00 Weight (Pounds): 180 General Appearance: WD/WN, alert Neck: supple Cardiovascular: normal rate, regular rhythm Respiratory/Chest: chest wall non-tender, lungs clear, normal breath sounds, no respiratory distress Abdomen: normal bowel sounds, non tender, soft, no organomegaly Edema: trace edema Neurologic: alert, oriented x 3, responsive ROSA WILSON Dec 12, 2017 08:25
[2017-12-12 08:34] VITALS: BP 120/58
[2017-12-12] MEDS: Lisinopril 20mg tab ORAL SCH (08:50)
[2017-12-12] MEDS: Multivitamin w/Minerals tab ORAL SCH (08:52)
[2017-12-12] MEDS: Docusate 100mg cap ORAL SCH (08:52)
[2017-12-12] MEDS: Heparin 5000 units/ml inj SUBQ SCH ×2 (08:55→20:19)
[2017-12-12] MEDS: Vancomycin 500 MG in NS 110 ML IVPB SCH (09:57)
[2017-12-12 11:38] VITALS: BP 126/67
[2017-12-12 16:00] VITALS: BP 118/66
[2017-12-12 20:00] VITALS: BP 113/59
[2017-12-12] MEDS: Atorvastatin 20mg tab ORAL SCH (20:15)
[2017-12-13] MEDS: traMADol 50mg tab ORAL SCH ×2 (02:00→08:09)
[2017-12-13 04:00] VITALS: BP 124/52
[2017-12-13] MEDS: NovoLOG Insulin Flexpen SUBQ SCH ×2 (05:58→12:16)
[2017-12-13 08:00] VITALS: BP 124/59
[2017-12-13] MEDS: Docusate 100mg cap ORAL SCH (08:08)
[2017-12-13] MEDS: Lisinopril 20mg tab ORAL SCH (08:11)
[2017-12-13] MEDS: Heparin 5000 units/ml inj SUBQ SCH (08:11)
[2017-12-13] MEDS: Multivitamin w/Minerals tab ORAL SCH (08:11)
[2017-12-13 12:00] VITALS: BP 111/45
[2017-12-13] MEDS ORDERED: Vancomycin 750mg/NS 250ml IVPB SCH (12:00)
--- NOTE | 2017-12-13 16:07 | Cardiology Report ---
APPROVED REPORT EKG Measurement Heart [id number] CT 198P69 [id number] Sinus rhythm with premature atrial complexes Otherwise normal ECG
--- NOTE | 2017-12-14 07:30 | Discharge Summary ---
DATE OF ADMISSION: 12/10/2017 DATE OF DISCHARGE: 12/13/2017 ADMISSION DIAGNOSES: 1. Deep vein thrombosis. 2. History of gastrointestinal bleed. 3. Inferior vena cava filter. 4. Cellulitis. 5. History of stroke. DISCHARGE DIAGNOSES: 1. Deep vein thrombosis. 2. History of gastrointestinal bleed. 3. Inferior vena cava filter. 4. Cellulitis. 5. History of stroke. HOSPITAL COURSE: The patient is a pleasant female, who was admitted with complaints of leg pain. She apparently had a positive venous duplex. She has a prior history of DVT, was treating it with anticoagulation, but had a massive GI bleed. She was treated for a possible cellulitis, which improved dramatically. On discharge, she was stable. She will be discharged back to [facility] facility. She can follow up with her PMD regarding further anticoagulation, but as stated before, she had a massive GI bleed on Coumadin, therefore had an IVC filter placed. She is otherwise protected. DISCHARGE MEDICATIONS: Please see discharge medication list for discharge medications. DIET: Cardiac diet. ACTIVITY: Ad tico. FOLLOWUP: The patient will follow up with her PMD at the [facility] facility. Tam Wall M.D. DR: ARBEN JOB#: [id number] CC:
--- NOTE | 2017-12-14 21:06 | Consultation ---
History of Present Illness General Date patient seen: Dec 12, 2017 Chief Complaint: Edema Present Illness HPI 77-year-old female. She has multiple medical problems including a history of hypertensive heart disease, diabetes, and hyperlipidemia,bipolar disorder and history of DVT, status post IVC filter. She was transferred from a custodial facility with complaints of lower extremity edema. the pt was agitated and anxious Allergies: Coded Allergies: PENICILLINS (Verified Allergy, Intermediate, Itching, 06/25/12) PROPOXYPHENE HCL (Verified Allergy, Intermediate, Itching, 06/25/12) TETRACYCLINE (Verified Allergy, Intermediate, Itching, 06/25/12) PROPOXYPHENE (Verified Allergy, Unknown, 06/25/12) TETRACYCLINES (Unverified Allergy, Unknown, 05/11/17) HYDROCODONE (Verified Adverse Reaction, Intermediate, GI UPSET, 05/05/16) SULFA (SULFONAMIDE ANTIBIOTICS) (Verified Adverse Reaction, Intermediate, GI UPSET, 05/05/16) Medication History Scheduled Amlodipine Besylate* (Amlodipine Besylate*), 10 MG ORAL DAILY, (Reported) Aspirin* (Aspirin*), 81 MG ORAL DAILY, (Reported) Atorvastatin Calcium* (Atorvastatin Calcium*), 20 MG ORAL BEDTIME, (Reported) Clonidine Hcl (Clonidine Hcl), 0.1 MG PO EVERY 4 HOURS, (Reported) Docusate Sodium* (Docusate Sodium*), 100 MG ORAL DAILY, (Reported) Lisinopril (Lisinopril*), 40 MG ORAL DAILY, (Reported) Lisinopril (Lisinopril*), 20 MG ORAL DAILY, (Reported) Magnesium Hydroxide* (Milk Of Magnesia*), 30 ML ORAL DAILY, (Reported) Melatonin (Melatonin), 5 MG PO BEDTIME, (Reported) Melatonin (Melatonin), 5 MG PO BEDTIME, (Reported) Multivitamin With Minerals (Multivitamins With Minerals*), 1 TAB ORAL DAILY, ( Reported) Na Phos,M-B/Na Phos,Di-Ba (Fleet Enema), 133 ML RC QOD, (Reported) Pantoprazole* (Protonix*), 40 MG ORAL DAILY, (Reported) Ranitidine Hcl* (Zantac*), 150 MG ORAL BEDTIME, (Reported) Risperidone (Risperidone), 3 MG ORAL HS, (Reported) Risperidone* (Risperdal*), 2 MG ORAL DAILY, (Reported) Tramadol Hcl* (Ultram*), 50 MG ORAL Q6H, (Reported) Scheduled PRN Acetaminophen (Acetaminophen), 650 MG ORAL EVERY 4 HOURS PRN for Pain Scale (3-5 ), (Reported) Acetaminophen* (Tylenol Extra Strength*), 1,000 MG ORAL Q4HR PRN for Mild Pain/ Temp > 100.5, (Reported) Miscellaneous Medications Bisacodyl (Dulcolax), 10 MG RC, (Reported) Clonidine HCl (Clonidine HCl), 0.1 MG GT, (Reported) Cranberry (Cranberry), 850 MG PO, (Reported) Ipratropium/Albuterol Sulfate (DuoNeb 0.5-3(2.5)mg/3ml), 3 ML HHN, (Reported) Linagliptin (Tradjenta), 5 MG PO, (Reported) Discontinued Medications Rivaroxaban (Xarelto), 20 MG ORAL DAILY, (Reported) Discontinued Reason: MD discontinued med Patient History History Provided By: Patient, Medical Record, PMD Healthcare decision maker Resuscitation status Full Code Advanced Directive on File Past Medical/Surgical History Past Medical/Surgical History: (1) UTI (lower urinary tract infection) (2) Occult blood in stools (3) Hypoalbuminemia (4) Hyponatremia (5) Hypertension (6) E. coli UTI (urinary tract infection) (7) Dehydration (8) Psychiatric disorder (9) Dementia (10) Diabetes (11) Gastric ulcer (12) Fecal impaction (13) CVA (cerebral vascular accident) (14) Altered mental status (15) DVT (deep venous thrombosis) (16) GI bleed (17) Cellulitis of lower extremity (18) acute sepsis Review of Systems Psychiatric: Reports: prior hx, anxiety, depressed feelings, emotional problems , hallucinations Physical Exam General Appearance: no apparent distress, alert, agitated Height (Feet): 5 Height (Inches): 6.00 Weight (Pounds): 180 Assessment/Plan Status: stable, progressing Assessment/Plan bipolar d/o agitation cont Maria D Mccoy M.D. Dec 14, 2017 21:06
--- NOTE | 2017-12-15 10:52 | Diagnostic Imaging Report ---
APPROVED REPORT CPT Code: 67746 Present Symptoms Comments: Pain Past History DVT :Left RIGHT LEG: Venous imaging reveals a patent deep venous system. There is no evidence of thrombus within the femoral, popliteal or tibial segments. The greater saphenous vein is also within normal limits. Doppler indicates normal spontaneous flow within these segments. LEFT LEG: Venous imaging reveals recanalized chronic thrombus in the superficial femoral and popliteal veins. Large collateral vein noted anterior to the superficial femoral artery. The remainder of the deep venous system is within normal limits. There is no evidence of thrombus in the common femoral, or calf veins. The greater saphenous vein is also within normal limits. Doppler indicates normal spontaneous flow within these segments. There is no evidence of acute deep vein thrombosis.
== END 2017-12-13 13:15 | DRG 300 ==
LOC: EDBD 20:34 → EDUNIT# 20:34 → EMR 22:01 → 4W 22:06 → EDBEDREQ 22:20 → 4W 12-11 00:15
DX: I82.402 Acute embolism and thrombosis of unspecified deep veins of left lower extremity (principal); L03.119 Cellulitis of unspecified part of limb; I11.9 Hypertensive heart disease without heart failure; R41.82 Altered mental status, unspecified; E11.9 Type 2 diabetes mellitus without complications; F31.9 Bipolar disorder, unspecified; Z86.73 Personal history of transient ischemic attack (TIA), and cerebral infarction without residual deficits; Z88.6 Allergy status to analgesic agent; Z88.0 Allergy status to penicillin; Z88.8 Allergy status to other drugs, medicaments and biological substances; Z88.2 Allergy status to sulfonamides; Z86.14 Personal history of Methicillin resistant Staphylococcus aureus infection; R47.02 Dysphasia
CPT/HCPCS: 36415; 71045; 80053; 80202; 82962; 83880; 84484; 85025; 85610; 85730; 86710; 87081; 93005; 93970; 94664; 99285; J1815

== ENCOUNTER 2018-11-20 08:55 | Inpatient (IN) | payer MEDICARE, MEDICAID ==
[~2018-11-20] VITALS: Ht 165.1 cm; Wt 72.3 kg
[~2018-11-20 08:55] MED LIST changes: +CLONIDINE HCL0.1 MG PO; +MELATONIN5 M6 PO; +MULTIVITAMINS1 EAC8 ORAL; +PROTONIX40 MG ORAL; +TRAMADOL HCL50 MG ORAL; +TYLENOL EXTRA500 MG ORAL
--- NOTE | 2018-11-20 09:08 | NUR ---
ED Nurse Note: patient brought in by [facility] ambulance from [facility]. patient is alert and awake, but confused with reported hx of schizophrenia. per EMT, patient was brought in for abd pain, distended abd, buring urination for the last 2 days. patient's chief complaint upon Dr. Heller assessment was intractable bilateral pain.
[2018-11-20] MEDS ORDERED: traMADol 50mg tab ORAL ONE (09:15)
--- NOTE | 2018-11-20 09:25 | NUR ---
ED Nurse Note: unable to collect urine sample because patient is not cooperative. Dr. Heller made aware. It's ok to hold onto urine sample at this time.
[2018-11-20 10:07] VITALS: BP 153/85
--- NOTE | 2018-11-20 10:14 | NUR ---
ED Nurse Note: Vascular U/S made aware.
[2018-11-20 10:15] LABS: BASOPHILS % (AUTO) 1.2 % (0.0-2.0); EOSINOPHILS % (AUTO) 1.6 % (0.0-3.0); HEMATOCRIT 41.8 % (37.0-47.0); HEMOGLOBIN 13.1 G/DL (12.0-16.0); LYMPHOCYTES % (AUTO) 17.3 % (20.0-45.0); MEAN CORPUSCULAR VOLUME 79 FL (80-99); MONOCYTES % (AUTO) 9.1 % (1.0-10.0); NEUTROPHILS % (AUTO) 70.8 % (45.0-75.0); PLATELET COUNT 266 K/UL (150-450); RED CELL DISTRIBUTION WIDTH 14.1 % (11.6-14.8); WHITE BLOOD COUNT 9.6 K/UL (4.8-10.8)
[2018-11-20 10:24] LABS: ANION GAP 11 mmol/L (5-15); BLOOD UREA NITROGEN 22 mg/dL (7-18); CALCIUM 9.9 MG/DL (8.5-10.1); CARBON DIOXIDE 27 MMOL/L (21-32); CHLORIDE 104 MMOL/L (98-107); CREATININE 1.4 MG/DL (0.55-1.30); POTASSIUM 3.9 MMOL/L (3.5-5.1); SODIUM 142 MMOL/L (136-145)
[2018-11-20 10:30] LABS: ALANINE AMINOTRANSFERASE 29 U/L (12-78); ALBUMIN 3.6 G/DL (3.4-5.0); ALBUMIN/GLOBULIN RATIO 0.7 (1.0-2.7); ALKALINE PHOSPHATASE 83 U/L (46-116); ASPARTATE AMINO TRANSFERASE 26 U/L (15-37); BILIRUBIN,TOTAL 0.5 MG/DL (0.2-1.0)
[2018-11-20] MEDS ORDERED: Morphine Sulfate 2mg/ml Inj(IV/IM USE ONLY) IVP ONE (10:30)
--- NOTE | 2018-11-20 10:45 | NUR ---
ED Nurse Note: U/S by the bedside
[2018-11-20 10:55] LABS: APPEARANCE,URINE CLEAR; BILIRUBIN, URINE NEGATIVE (NEGATIVE); GLUCOSE, URINE (UA) NEGATIVE (NEGATIVE); KETONES,URINE 1+ (NEGATIVE); LEUKOCYTE ESTERASE ,URINE NEGATIVE (NEGATIVE); NITRITE,URINE NEGATIVE (NEGATIVE); PH,URINE 5 (4.5-8.0); PROTEIN,URINE 1+ (NEGATIVE); UROBILINOGEN,URINE 1 MG/DL (0.0-1.0)
[2018-11-20 10:57] LABS: COLOR,URINE CLEAR
[2018-11-20] MEDS ORDERED: LORazepam Inj 2mg/ml 1ml ONE (11:11)
[2018-11-20] MEDS ORDERED: Isovue-300 100ml vial INJ PRN (11:15)
[2018-11-20] MEDS ORDERED: LORazepam Inj 2mg/ml 1ml IV ONE (11:15)
[2018-11-20] MEDS ORDERED: UNOBMED (11:26)
--- NOTE | 2018-11-20 11:26 | NUR ---
ED Nurse Note: nuring home packet missed medication list. RN contacted SNF to fax over information. will wait for it.
[2018-11-20] MEDS ORDERED: ALBUTEROL2.5 MG/3 M INH (11:45)
[2018-11-20] MEDS ORDERED: FLUOXETINE HCL25 G1 MISC (11:45)
[2018-11-20] MEDS ORDERED: FLEET ENEMA133 M1 RC (11:45)
[2018-11-20] MEDS ORDERED: COLACE100 MG ORAL (11:45)
--- NOTE | 2018-11-20 11:49 | Emergency Room Report ---
History of Present Illness General Chief Complaint: Pain Source: Medical Record Present Illness HPI 78-year-old female presents ED for evaluation. Brought in by EMS for evaluation. Concern for UTI at longterm facility. Also lower abdominal pain 1 day. Patient describing dysuria. Denies fevers or chills. Pain is sharp, 5 out of 10, nonradiating. Also complaining of lower leg pain. States there is pain in her feet 1 day. Sharp, 10 out of 10, nonradiating. Per record there is history of DVT. No calf swelling. Denies chest pain or shortness of breath. No other aggravating relieving factors. Denies any other associated symptoms Allergies: Coded Allergies: PENICILLINS (Verified Allergy, Intermediate, Itching, 06/25/12) PROPOXYPHENE HCL (Verified Allergy, Intermediate, Itching, 06/25/12) TETRACYCLINE (Verified Allergy, Intermediate, Itching, 06/25/12) PROPOXYPHENE (Verified Allergy, Unknown, 06/25/12) TETRACYCLINES (Unverified Allergy, Unknown, 05/11/17) HYDROCODONE (Verified Adverse Reaction, Intermediate, GI UPSET, 05/05/16) SULFA (SULFONAMIDE ANTIBIOTICS) (Verified Adverse Reaction, Intermediate, GI UPSET, 05/05/16) Patient History Past Medical History: DM, HTN, CVA/TIA, dementia Past Surgical History: none Pertinent Family History: none Social History: Denies: smoking, alcohol use, drug use Now: No Immunizations: UTD Reviewed Nursing Documentation: PMH: Agreed; PSxH: Agreed Nursing Documentation-PMH Past Medical History: No History, Except For Hx Hypertension: Yes Hx Diabetes: Yes - dm2 Hx Cancer: No Hx Neurological Problems: No - DVT of left leg, Dysphasia Hx Cerebrovascular Accident: Yes Hx Dementia: Yes 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 Hx Memory Loss: Yes - short term Hx Speech Problem: No Hx Dysphasia: Yes Hx Weakness: Yes Review of Systems All Other Systems: negative except mentioned in HPI Physical Exam Vital Signs Date Time Temp Pulse Resp B/P (MAP) Pulse Ox O2 Delivery O2 Flow Rate FiO2 11/20/18 08:59 97.2 92 18 138/68 97 Room Air Sp02 EP Interpretation: reviewed, normal General Appearance: no apparent distress, alert, GCS 15, non-toxic Head: normocephalic, atraumatic Eyes: bilateral eye normal inspection, bilateral eye PERRL ENT: hearing grossly normal, normal pharynx, no angioedema, normal voice Neck: full range of motion, supple/symm/no masses Respiratory: chest non-tender, lungs clear, normal breath sounds, speaking full sentences Cardiovascular #1: regular rate, rhythm, no edema Cardiovascular #2: 2+ carotid (R), 2+ carotid (L), 2+ radial (R), 2+ radial (L) , 2+ dorsalis pedis (R), 2+ dorsalis pedis (L) Gastrointestinal: normal bowel sounds, soft, non-distended, no guarding, no rebound, tenderness Rectal: deferred Genitourinary: normal inspection, no CVA tenderness Musculoskeletal: back normal, gait/station normal, normal range of motion, tender - tender to touch. DP pulse appreciated Neurologic: alert, oriented x3, responsive, motor strength/tone normal, sensory intact, speech normal Psychiatric: judgement/insight normal, memory normal, mood/affect normal, no suicidal/homicidal ideation Reflexes: 3+ bicep (R), 3+ bicep (L), 3+ tricep (R), 3+ tricep (L), 3+ knee (R) , 3+ knee (L) Skin: normal color, no rash, warm/dry, well hydrated Lymphatic: no adenopathy Medical Decision Making Diagnostic Impression: Primary Impression: Abdominal pain Qualified Codes: R10.9 - Unspecified abdominal pain Additional Impressions: Colitis Chronic deep vein thrombosis (DVT) Qualified Codes: I82.512 - Chronic embolism and thrombosis of left femoral vein ER Course Hospital Course 78 yo F presents to ED c/o lower abd pain, bilateral leg pain. Differential diagnoses include: BPH, cystitis, pyelonephritis, DVT, peripheral vascular disease Clinical course Patient placed on stretcher. hospital monitor. After initial history and physical I ordered labs, IV fluids, UA, pain medication and CT scan, venous/ arterial duplex Labs - no leukocytosis, Hb/Hct stable. electrolytes ok, UA unremarkable CT abdomen and pelvis - diastasis of rectus abd muscle, colitis, questionable proctitis and cystitis Venous duplex shows no evidence of DVT on right, chronic recannulize DVT on left Patient not cooperating with arterial duplex. We'll attempt later antibiotics given. Pain meds given. Dr. Hamilton will consult Case discussed with Dr. Wall and he agreed to accept the patient to his service for further care and support I feel this is a highly complex case requiring extensive working including EKG/ Rhythm strip, Xray/CT/US, Blood/urine lab work, repeat exams while in ED, and administration of strong opiates/narcotics for pain control, admission to hospital or close patient follow up. Diagnosis -abd pain, colitis, chronic DVT Patient admitted to floor in serious condition Labs Test 11/20/18 09:45 11/20/18 10:45 White Blood Count 9.6 K/UL (4.8-10.8) Red Blood Count 5.30 M/UL (4.20-5.40) Hemoglobin 13.1 G/DL (12.0-16.0) Hematocrit 41.8 % (37.0-47.0) Mean Corpuscular Volume 79 FL (80-99) Mean Corpuscular Hemoglobin 24.8 PG (27.0-31.0) Mean Corpuscular Hemoglobin Concent 31.4 G/DL (32.0-36.0) Red Cell Distribution Width 14.1 % (11.6-14.8) Platelet Count 266 K/UL (150-450) Mean Platelet Volume 8.1 FL (6.5-10.1) Neutrophils (%) (Auto) 70.8 % (45.0-75.0) Lymphocytes (%) (Auto) 17.3 % (20.0-45.0) Monocytes (%) (Auto) 9.1 % (1.0-10.0) Eosinophils (%) (Auto) 1.6 % (0.0-3.0) Basophils (%) (Auto) 1.2 % (0.0-2.0) Sodium Level 142 MMOL/L (136-145) Potassium Level 3.9 MMOL/L (3.5-5.1) Chloride Level 104 MMOL/L (98-107) Carbon Dioxide Level 27 MMOL/L (21-32) Anion Gap 11 mmol/L (5-15) Blood Urea Nitrogen 22 mg/dL (7-18) Creatinine 1.4 MG/DL (0.55-1.30) Estimat Glomerular Filtration Rate mL/min (>60) Glucose Level 84 MG/DL (74-106) Calcium Level 9.9 MG/DL (8.5-10.1) Total Bilirubin 0.5 MG/DL (0.2-1.0) Aspartate Amino Transf (AST/SGOT) 26 U/L (15-37) Alanine Aminotransferase (ALT/SGPT) 29 U/L (12-78) Alkaline Phosphatase 83 U/L (46-116) Total Protein 8.9 G/DL (6.4-8.2) Albumin 3.6 G/DL (3.4-5.0) Globulin 5.3 g/dL Albumin/Globulin Ratio 0.7 (1.0-2.7) Lipase 150 U/L (73-393) Urine Color Clear Urine Appearance Clear Urine pH 5 (4.5-8.0) Urine Specific [place] 1.020 (1.005-1.035) Urine Protein 1+ (NEGATIVE) Urine Glucose (UA) Negative (NEGATIVE) Urine Ketones 1+ (NEGATIVE) Urine Blood Negative (NEGATIVE) Urine Nitrite Negative (NEGATIVE) Urine Bilirubin Negative (NEGATIVE) Urine Urobilinogen 1 MG/DL (0.0-1.0) Urine Leukocyte Esterase Negative (NEGATIVE) Urine RBC 0 /HPF (0 - 2) Urine WBC 0 /HPF (0 - 2) Urine Squamous Epithelial Cells Occasional /LPF Urine Bacteria None /HPF (NONE) CT/MRI/US Diagnostic Results CT/MRI/US Diagnostic Results #1: Imaging Test Ordered: CT A/P Impression 1. Prominence of the wall of the rectum may represent proctitis. 2. Mildly prominent fluid and gas-filled small bowel loops are nonspecific but may represent enteritis or ileus. 3. Prominence of the bladder wall is nonspecific and may be at least in part accentuated by underdistention. Please correlate with urinalysis if concerned for cystitis. CT/MRI/US Diagnostic Results #2: Imaging Test Ordered: Venous Duplex Impression no DVT on right. recanalized chronic thrombus L mid and distal superfiical femoral vein Last Vital Signs Date Time Temp Pulse Resp B/P (MAP) Pulse Ox O2 Delivery O2 Flow Rate FiO2 11/20/18 11:05 97.2 11/20/18 10:07 96 24 153/85 99 Room Air Status: improved Disposition: ADMITTED INPATIENT Condition: Serious Referrals: NON PHYSICIAN (PCP) Caio Taylor MD Nov 20, 2018 11:48
--- NOTE | 2018-11-20 12:10 | NUR ---
ED Nurse Note: patient came back from CT in stable condition
[2018-11-20 12:12] VITALS: BP 157/81
[2018-11-20 12:38] VITALS: BP 148/56
--- NOTE | 2018-11-20 13:07 | NUR ---
HAND-OFF: Report given to Tana ZALDIVAR in 4E. Endorsed that patient has 1 upper denture in her mouth and 1 gown only.
[2018-11-20 13:14] VITALS: BP 127/58
--- NOTE | 2018-11-20 13:30 | NUR ---
NURSE NOTES: patient admitted room 409-1 from ER with libia accompanied by ER nurse. patient is alert, no respiratory distress noted. no c/o pain at this time. skin check done. skin intact. changed linen. bed in the lowest position. call light within reach. alarm on. will continue to monitor.
--- NOTE | 2018-11-20 13:31 | Consultation ---
History of Present Illness General Date patient seen: Nov 20, 2018 Chief Complaint: Pain Reason for Consultation: colitis Present Illness HPI 78 year old female known to me from prior admission was noted to have worsening abdominal pain for 1 day and dysuria. no n/v/f/c. states abdominal pain cramping 7/10 pain without radiation. feels better in position. constipated. on admission labs okay. CT with proctitis and colitis as well as diastasis of rectus muscles. surgery called to evaluate for abdominal pain. patient seen, chart reviewed, patient examined. Allergies: Coded Allergies: PENICILLINS (Verified Allergy, Intermediate, Itching, 06/25/12) PROPOXYPHENE HCL (Verified Allergy, Intermediate, Itching, 06/25/12) TETRACYCLINE (Verified Allergy, Intermediate, Itching, 06/25/12) PROPOXYPHENE (Verified Allergy, Unknown, 06/25/12) TETRACYCLINES (Unverified Allergy, Unknown, 05/11/17) HYDROCODONE (Verified Adverse Reaction, Intermediate, GI UPSET, 05/05/16) SULFA (SULFONAMIDE ANTIBIOTICS) (Verified Adverse Reaction, Intermediate, GI UPSET, 05/05/16) Medication History Scheduled Amlodipine Besylate* (Amlodipine Besylate*), 10 MG ORAL DAILY, (Reported) Aspirin* (Aspirin*), 81 MG ORAL DAILY, (Reported) Atorvastatin Calcium* (Atorvastatin Calcium*), 20 MG ORAL BEDTIME, (Reported) Clonidine Hcl (Clonidine Hcl), 0.1 MG PO EVERY 4 HOURS, (Reported) Docusate Sodium* (Docusate Sodium*), 100 MG ORAL DAILY, (Reported) Docusate Sodium* (Colace*), 100 MG ORAL DAILY, (Reported) Lisinopril (Lisinopril*), 40 MG ORAL DAILY, (Reported) Lisinopril (Lisinopril*), 20 MG ORAL DAILY, (Reported) Magnesium Hydroxide* (Milk Of Magnesia*), 30 ML ORAL DAILY, (Reported) Melatonin (Melatonin), 5 MG PO BEDTIME, (Reported) Melatonin (Melatonin), 5 MG PO BEDTIME, (Reported) Multivitamin With Minerals (Multivitamins With Minerals*), 1 TAB ORAL DAILY, ( Reported) Na Phos,M-B/Na Phos,Di-Ba (Fleet Enema), 133 ML RC QOD, (Reported) Pantoprazole* (Protonix*), 40 MG ORAL DAILY, (Reported) Ranitidine Hcl* (Zantac*), 150 MG ORAL BEDTIME, (Reported) Risperidone (Risperidone), 3 MG ORAL HS, (Reported) Risperidone* (Risperdal*), 2 MG ORAL DAILY, (Reported) Tramadol Hcl* (Ultram*), 50 MG ORAL Q6H, (Reported) Scheduled PRN Acetaminophen (Acetaminophen), 650 MG ORAL EVERY 4 HOURS PRN for Pain Scale (3-5 ), (Reported) Acetaminophen* (Tylenol Extra Strength*), 1,000 MG ORAL Q4HR PRN for Mild Pain/ Temp > 100.5, (Reported) Albuterol Sulfate* (Albuterol Sulfate Hhn*), 3 ML INH Q4H PRN for Shortness of Breath, (Reported) Miscellaneous Medications Bisacodyl (Dulcolax), 10 MG RC, (Reported) Clonidine HCl (Clonidine HCl), 0.1 MG GT, (Reported) Cranberry (Cranberry), 850 MG PO, (Reported) Fluoxetine (Fluoxetine Hcl), 25 GM MISC, (Reported) Ipratropium/Albuterol Sulfate (DuoNeb 0.5-3(2.5)mg/3ml), 3 ML HHN, (Reported) Linagliptin (Tradjenta), 5 MG PO, (Reported) Na Phos,M-B/Na Phos,Di-Ba (Fleet Enema), 133 ML RC, (Reported) Unable to Obtain Medications (Unable To Obtain Meds), (Reported) Patient History History Provided By: Patient, Medical Record, PMD Healthcare decision maker Resuscitation status Advanced Directive on File Past Medical/Surgical History Past Medical/Surgical History: (1) Altered mental status (2) DVT (deep venous thrombosis) (3) GI bleed (4) Cellulitis of lower extremity (5) acute sepsis (6) Occult blood in stools (7) Gastric ulcer (8) Dehydration (9) Dementia (10) Diabetes (11) Fecal impaction (12) Hyponatremia (13) Psychiatric disorder (14) Hypoalbuminemia (15) Hypertension (16) CVA (cerebral vascular accident) (17) E. coli UTI (urinary tract infection) (18) UTI (lower urinary tract infection) Review of Systems All Other Systems: negative except mentioned in HPI Physical Exam General Appearance: no apparent distress, alert Lines, tubes and drains: peripheral HEENT: mucous membranes moist Neck: normal inspection Respiratory/Chest: normal breath sounds, no respiratory distress Cardiovascular/Chest: regular rhythm Abdomen: soft, no organomegaly, no mass, decreased bowel sounds, tender Extremities: normal inspection Skin Exam: warm/dry Neurologic: alert Last 24 Hour Vital Signs Date Time Temp Pulse Resp B/P (MAP) Pulse Ox O2 Delivery O2 Flow Rate FiO2 11/20/18 13:14 97.1 90 17 127/58 96 Room Air 11/20/18 12:38 97.1 78 16 148/56 97 Room Air 11/20/18 12:12 97.1 91 16 157/81 97 Room Air 11/20/18 11:05 97.2 11/20/18 10:08 97.2 11/20/18 10:07 97.2 96 24 153/85 99 Room Air 11/20/18 08:59 97.2 92 18 138/68 97 Room Air Laboratory Tests Test 11/20/18 09:45 11/20/18 10:45 White Blood Count 9.6 K/UL (4.8-10.8) Red Blood Count 5.30 M/UL (4.20-5.40) Hemoglobin 13.1 G/DL (12.0-16.0) Hematocrit 41.8 % (37.0-47.0) Mean Corpuscular Volume 79 FL (80-99) L Mean Corpuscular Hemoglobin 24.8 PG (27.0-31.0) L Mean Corpuscular Hemoglobin Concent 31.4 G/DL (32.0-36.0) L Red Cell Distribution Width 14.1 % (11.6-14.8) Platelet Count 266 K/UL (150-450) Mean Platelet Volume 8.1 FL (6.5-10.1) Neutrophils (%) (Auto) 70.8 % (45.0-75.0) Lymphocytes (%) (Auto) 17.3 % (20.0-45.0) L Monocytes (%) (Auto) 9.1 % (1.0-10.0) Eosinophils (%) (Auto) 1.6 % (0.0-3.0) Basophils (%) (Auto) 1.2 % (0.0-2.0) Sodium Level 142 MMOL/L (136-145) Potassium Level 3.9 MMOL/L (3.5-5.1) Chloride Level 104 MMOL/L (98-107) Carbon Dioxide Level 27 MMOL/L (21-32) Anion Gap 11 mmol/L (5-15) Blood Urea Nitrogen 22 mg/dL (7-18) H Creatinine 1.4 MG/DL (0.55-1.30) H Estimat Glomerular Filtration Rate mL/min (>60) Glucose Level 84 MG/DL (74-106) Calcium Level 9.9 MG/DL (8.5-10.1) Total Bilirubin 0.5 MG/DL (0.2-1.0) Aspartate Amino Transf (AST/SGOT) 26 U/L (15-37) Alanine Aminotransferase (ALT/SGPT) 29 U/L (12-78) Alkaline Phosphatase 83 U/L (46-116) Total Protein 8.9 G/DL (6.4-8.2) H Albumin 3.6 G/DL (3.4-5.0) Globulin 5.3 g/dL Albumin/Globulin Ratio 0.7 (1.0-2.7) L Lipase 150 U/L (73-393) Urine Color Clear Urine Appearance Clear Urine pH 5 (4.5-8.0) Urine Specific [place] 1.020 (1.005-1.035) Urine Protein 1+ (NEGATIVE) H Urine Glucose (UA) Negative (NEGATIVE) Urine Ketones 1+ (NEGATIVE) H Urine Blood Negative (NEGATIVE) Urine Nitrite Negative (NEGATIVE) Urine Bilirubin Negative (NEGATIVE) Urine Urobilinogen 1 MG/DL (0.0-1.0) H Urine Leukocyte Esterase Negative (NEGATIVE) Urine RBC 0 /HPF (0 - 2) Urine WBC 0 /HPF (0 - 2) Urine Squamous Epithelial Cells Occasional /LPF Urine Bacteria None /HPF (NONE) Height (Feet): 5 Height (Inches): 5.00 Weight (Pounds): 160 Medications Current Medications Medications (Trade) Dose Ordered Sig/Jackie Route PRN Reason Start Time Stop Time Status Last Admin Dose Admin Ciprofloxacin 200 ml @ 200 mls/hr ONCE ONCE IV 11/20/18 12:45 11/20/18 13:44 11/20/18 13:04 Iopamidol (Isovue-300 100ml) 100 ml NOW PRN INJ Radiology Procedure 11/20/18 11:15 Assessment/Plan Problem List: (1) Abdominal pain Assessment & Plan: generalized abdominal pain. no n/v/f/c. labs okay exam with discomfort but no peritonitis CT noted with colitis/proctitis -okay for diet -IV abx -AM labs -pending cultures -will follow with recs thank you ICD Codes: R10.9 - Unspecified abdominal pain SNOMED: [id number] Fabian Hamilton Nov 20, 2018 13:31
--- NOTE | 2018-11-20 13:55 | NUR ---
NURSE NOTES: Received report from KAYLEY Powell,ER.
[2018-11-20] MEDS ORDERED: Mylanta II UD 30ml ORAL PRN (14:02)
[2018-11-20] MEDS ORDERED: Morphine Sulfate 2mg/ml Inj(IV/IM USE ONLY) IVP PRN ×4 (14:04→16:15)
[2018-11-20 14:09] VITALS: BP 127/58
[2018-11-20] MEDS: D5 1/2NS w/KCl 20mEq 1,000 ML IV SCH (15:38)
[2018-11-20] MEDS ORDERED: Acetaminophen 650mg/20.3ml ORAL PRN (15:45)
[2018-11-20] MEDS ORDERED: Albuterol ud Inhalation HHN PRN (15:50)
[2018-11-20] MEDS ORDERED: traMADol 50mg tab ORAL PRN (16:06)
--- NOTE | 2018-11-20 19:22 | NUR ---
HAND-OFF: Report given to KAYLEY Abreu.
[2018-11-20 20:00] VITALS: BP 141/66
--- NOTE | 2018-11-20 20:00 | NUR ---
NURSE NOTES: Patient received in bed, asleep, arousable to name. IV is intact and patent. Skin intact. Extremities warm to touch, legs tender to touch. Art duplex result sent to Dr. Wall, no new orders received. Call light in reach, will continue to monitor.
[2018-11-20] MEDS ORDERED: Milk of Magnesia 30ml Ud ORAL PRN (21:00)
[2018-11-20] MEDS ORDERED: Heparin 5000 units/ml inj SUBQ SCH (21:00)
[2018-11-20] MEDS: Docusate 100mg cap ORAL SCH (21:13)
[2018-11-20] MEDS: Heparin 5000 units/ml inj SUBQ SCH (21:16)
[2018-11-21] VITALS: BP 137/70
[2018-11-21 03:40] VITALS: BP 140/63
[2018-11-21] MEDS: D5 1/2NS w/KCl 20mEq 1,000 ML IV SCH ×2 (05:03→17:23)
[2018-11-21] MEDS: Heparin 5000 units/ml inj SUBQ SCH ×3 (05:06→22:19)
[2018-11-21 07:04] LABS: BASOPHILS % (AUTO) 1.2 % (0.0-2.0); EOSINOPHILS % (AUTO) 3.5 % (0.0-3.0); HEMATOCRIT 34.2 % (37.0-47.0); HEMOGLOBIN 10.9 G/DL (12.0-16.0); LYMPHOCYTES % (AUTO) 30.3 % (20.0-45.0); MEAN CORPUSCULAR VOLUME 78 FL (80-99); MONOCYTES % (AUTO) 8.5 % (1.0-10.0); NEUTROPHILS % (AUTO) 56.4 % (45.0-75.0); PLATELET COUNT 207 K/UL (150-450); RED BLOOD COUNT 4.39 M/UL (4.20-5.40); RED CELL DISTRIBUTION WIDTH 14.1 % (11.6-14.8); WHITE BLOOD COUNT 6.6 K/UL (4.8-10.8)
--- NOTE | 2018-11-21 07:16 | NUR ---
HAND-OFF: Report given to Sandra ZALDIVAR.
--- NOTE | 2018-11-21 07:19 | NUR ---
HAND-OFF: Report given to Sandra ZALDIVAR.
[2018-11-21 07:22] LABS: ALANINE AMINOTRANSFERASE 22 U/L (12-78); ALBUMIN 2.9 G/DL (3.4-5.0); ALBUMIN/GLOBULIN RATIO 0.7 (1.0-2.7); ALKALINE PHOSPHATASE 68 U/L (46-116); ANION GAP 8 mmol/L (5-15); ASPARTATE AMINO TRANSFERASE 21 U/L (15-37); BILIRUBIN,TOTAL 0.6 MG/DL (0.2-1.0); BLOOD UREA NITROGEN 13 mg/dL (7-18); CALCIUM 9.1 MG/DL (8.5-10.1); CARBON DIOXIDE 24 MMOL/L (21-32); CHLORIDE 106 MMOL/L (98-107); CREATININE 1.2 MG/DL (0.55-1.30); POTASSIUM 3.7 MMOL/L (3.5-5.1); SODIUM 138 MMOL/L (136-145)
--- NOTE | 2018-11-21 07:33 | NUR ---
NURSE NOTES: Received patient in bed, resting and alert to name, place, and purpose. IV intact. No signs of respiratory distress. Patient denies pain. Bed in lowest position, call light within reach. Will continue to monitor.
[2018-11-21 08:00] VITALS: BP 104/67
[2018-11-21] MEDS: Lisinopril 20mg tab ORAL SCH ×2 (09:00→12:37)
[2018-11-21] MEDS: Milk of Magnesia 30ml Ud ORAL SCH ×2 (09:00→10:48)
[2018-11-21] MEDS ORDERED: Docusate 100mg cap ORAL SCH ×2 (09:00)
[2018-11-21] MEDS: Aspirin Baby 81mg ORAL SCH (10:48)
[2018-11-21] MEDS: Multivitamin w/Minerals tab ORAL SCH (10:48)
[2018-11-21] MEDS: Docusate 100mg cap ORAL SCH ×2 (10:48→22:17)
[2018-11-21 12:00] VITALS: BP 143/70
--- NOTE | 2018-11-21 12:49 | NUR ---
CASE MANAGEMENT: INITIAL REVIEW 78 YO F JANNIE FROM [facility] CC: ABD PAIN. LEG PAIN PMHx: DM.. HTN. CVA/TIA. DEMENTIA. SI:INTRACTABLE LEG PAIN. T 97.2 HR 92 RR 18 IS: NS BOLUS X1 TRAMADOL PO X1 PATIENT ADMITTED TO MED/SURG 11/20/2018 @ 0945 DCP: PATIENT TO BE DISCHARGED TO SNF ONCE MEDICALLY CLEARED. PLAN OF CARE: IV ANTIBx Addendum: 11/21/18 at 1530 by Radha Tamez CM INTERQUAL MET FOR ACUTE
--- NOTE | 2018-11-21 13:51 | Surgery Progress Note ---
Surgery Progress Note Subjective Additional Comments no acute events. states abdominal pain resolving. no n/v/f/c. tolerating diet. passing flatus Objective Last 24 Hour Vital Signs Date Time Temp Pulse Resp B/P (MAP) Pulse Ox O2 Delivery O2 Flow Rate FiO2 11/21/18 12:37 143/76 11/21/18 09:00 88 104/67 11/21/18 09:00 Room Air 11/21/18 08:00 98.1 88 20 104/67 (79) 94 11/21/18 03:40 98.3 80 17 140/63 (88) 93 11/21/18 00:00 98.5 78 16 137/70 (92) 94 11/20/18 21:00 Room Air 11/20/18 20:00 98.1 74 17 141/66 (91) 95 11/20/18 18:01 Room Air 11/20/18 14:09 97.1 90 17 127/58 (81) 96 I&O Intake and Output 11/20/18 11/21/18 19:00 07:00 Intake Total 315 ml 995 ml Balance 315 ml 995 ml Intake Oral 240 ml IV Total 75 ml 995 ml # Voids 3 Drains: none Cardiovascular: RSR Respiratory: clear Abdomen: soft, non-tender, present bowel sounds Extremities: other Laboratory Tests Test 11/21/18 05:55 White Blood Count 6.6 K/UL (4.8-10.8) Red Blood Count 4.39 M/UL (4.20-5.40) Hemoglobin 10.9 G/DL (12.0-16.0) L Hematocrit 34.2 % (37.0-47.0) L Mean Corpuscular Volume 78 FL (80-99) L Mean Corpuscular Hemoglobin 24.9 PG (27.0-31.0) L Mean Corpuscular Hemoglobin Concent 32.0 G/DL (32.0-36.0) Red Cell Distribution Width 14.1 % (11.6-14.8) Platelet Count 207 K/UL (150-450) Mean Platelet Volume 8.8 FL (6.5-10.1) Neutrophils (%) (Auto) 56.4 % (45.0-75.0) Lymphocytes (%) (Auto) 30.3 % (20.0-45.0) Monocytes (%) (Auto) 8.5 % (1.0-10.0) Eosinophils (%) (Auto) 3.5 % (0.0-3.0) H Basophils (%) (Auto) 1.2 % (0.0-2.0) Erythrocyte Sedimentation Rate 46 MM/HR (0-30) H Prothrombin Time 11.0 SEC (9.30-11.50) Prothromb Time International Ratio 1.0 (0.9-1.1) Activated Partial Thromboplast Time 31 SEC (23-33) Sodium Level 138 MMOL/L (136-145) Potassium Level 3.7 MMOL/L (3.5-5.1) Chloride Level 106 MMOL/L (98-107) Carbon Dioxide Level 24 MMOL/L (21-32) Anion Gap 8 mmol/L (5-15) Blood Urea Nitrogen 13 mg/dL (7-18) Creatinine 1.2 MG/DL (0.55-1.30) Estimat Glomerular Filtration Rate mL/min (>60) Glucose Level 84 MG/DL (74-106) Lactic Acid Level 0.70 mmol/L (0.4-2.0) Calcium Level 9.1 MG/DL (8.5-10.1) Total Bilirubin 0.6 MG/DL (0.2-1.0) Aspartate Amino Transf (AST/SGOT) 21 U/L (15-37) Alanine Aminotransferase (ALT/SGPT) 22 U/L (12-78) Alkaline Phosphatase 68 U/L (46-116) C-Reactive Protein, Quantitative 1.7 mg/dL (0.00-0.90) H Total Protein 7.2 G/DL (6.4-8.2) Albumin 2.9 G/DL (3.4-5.0) L Globulin 4.3 g/dL Albumin/Globulin Ratio 0.7 (1.0-2.7) L Plan Problems: (1) Abdominal pain Assessment & Plan: generalized abdominal pain. no n/v/f/c. labs okay exam with discomfort but no peritonitis CT noted with colitis/proctitis improving -okay for diet -IV abx -AM labs -will follow with recs thank you Fabian Hamilton Nov 21, 2018 13:51
--- NOTE | 2018-11-21 15:45 | History and Physical Report ---
DATE OF ADMISSION: 11/20/2018 CHIEF COMPLAINT: Diarrhea. HISTORY OF PRESENT ILLNESS: The patient is a pleasant 78-year-old female. She has a prior history of stroke, DVT, status post IVC filter, history of GI bleed, diabetes, hypertension, and diastolic congestive heart failure. She was transferred from a long term facility with complaints of diarrhea. According to the patient, she has had watery diarrhea for the last two days. She denies any nausea or vomiting. On evaluation in the emergency room, the patient had a CAT scan of the abdomen that showed colitis and proctitis. The patient has been started on antibiotic therapy as well as hydration and is now admitted for further evaluation and care. PAST MEDICAL HISTORY: As above. PAST SURGICAL HISTORY: Includes a history of IVC filter. CURRENT MEDICATIONS: Reconciled and reviewed. ALLERGIES: Include hydrocodone, penicillin, propoxyphene, sulfa, and tetracycline. FAMILY HISTORY: Noncontributory. SOCIAL HISTORY: Negative for tobacco, ethanol, or drugs. REVIEW OF SYSTEMS: GENERAL: No fevers or chills. HEENT: No headaches or visual changes. CARDIOPULMONARY: No chest pain or shortness of breath. GASTROINTESTINAL: Positive diarrhea. No vomiting. No melena. No bright red blood per rectum. No hematemesis. GENITOURINARY: No urgency or frequency. MUSCULOSKELETAL: No joint pain or swelling. NEUROLOGIC: No evidence of seizures. PHYSICAL EXAMINATION: VITAL SIGNS: Temperature 98.3, pulse 80, respirations 17, and blood pressure 140/63. GENERAL: The patient is well-developed female, in no apparent distress. HEART: Regular rate and rhythm. LUNGS: Lungs are clear. ABDOMEN: Soft, nontender, nondistended. EXTREMITIES: Without clubbing, cyanosis, or edema. LABORATORY DATA: White count 9, hemoglobin 13, hematocrit 41, and platelets 266. Sodium 142, potassium 3.9, chloride 104, bicarb 27, BUN 22, creatinine 1.4. Lipase was normal. Urine was clear. ASSESSMENT: This is a pleasant female admitted with complaints of diarrhea secondary to colitis, rule out colitis, rule out C. diff. 1. History of diabetes. 2. Hypertension. 3. History of DVT, status post IVC filter. 4. Prior history of GI bleed. PLAN: Continue cautious hydration. Monitor renal function. Empiric antibiotic therapy for colitis. Follow up C. diff. Surgical consultation has been obtained. Tam Wall M.D. DR: UYEN JOB#: [id number] CC:
[2018-11-21 16:00] VITALS: BP 111/55
--- NOTE | 2018-11-21 17:00 | NUR ---
PT Note PT roseann completed, treatment initiated. Patient is cooperative and was able to take small steps with the FWW. Patient can benefit from PT services to increase her muscle strength and balance to improve her functional mobility and gait. Addendum: 11/21/18 at 1701 by ALEAH ORELLANA PT Amended: Links added.
--- NOTE | 2018-11-21 19:48 | NUR ---
HAND-OFF: Report given to Karen ZALDIVAR.
[2018-11-21 20:00] VITALS: BP 138/59
--- NOTE | 2018-11-21 20:17 | NUR ---
NURSE NOTES: Pt received awake, talkative, bed in lowest position, IV running, no c/o pain or signs of distress at the moment, call light within reach, will continue to monitor.
[2018-11-22] VITALS: BP 127/58
[2018-11-22 04:00] VITALS: BP 143/69
[2018-11-22] MEDS: Heparin 5000 units/ml inj SUBQ SCH ×3 (05:41→20:46)
[2018-11-22 06:39] LABS: BASOPHILS % (AUTO) 0.8 % (0.0-2.0); EOSINOPHILS % (AUTO) 4.2 % (0.0-3.0); HEMATOCRIT 36.3 % (37.0-47.0); HEMOGLOBIN 11.6 G/DL (12.0-16.0); LYMPHOCYTES % (AUTO) 29.7 % (20.0-45.0); MEAN CORPUSCULAR VOLUME 78 FL (80-99); MONOCYTES % (AUTO) 10.3 % (1.0-10.0); NEUTROPHILS % (AUTO) 55.1 % (45.0-75.0); PLATELET COUNT 189 K/UL (150-450); RED BLOOD COUNT 4.67 M/UL (4.20-5.40); RED CELL DISTRIBUTION WIDTH 14.1 % (11.6-14.8); WHITE BLOOD COUNT 5.8 K/UL (4.8-10.8)
[2018-11-22] MEDS: D5 1/2NS w/KCl 20mEq 1,000 ML IV SCH ×2 (07:00→20:20)
[2018-11-22 07:01] LABS: ANION GAP 9 mmol/L (5-15); BLOOD UREA NITROGEN 5 mg/dL (7-18); CALCIUM 9.5 MG/DL (8.5-10.1); CARBON DIOXIDE 24 MMOL/L (21-32); CHLORIDE 108 MMOL/L (98-107); CREATININE 1.2 MG/DL (0.55-1.30); POTASSIUM 3.9 MMOL/L (3.5-5.1); SODIUM 141 MMOL/L (136-145)
--- NOTE | 2018-11-22 07:25 | NUR ---
NURSE NOTES: received patient in bed, awake, alert , no sign of distress. IVF is intact and patent infusing well, denies pain or discomfort, on fall precaution observed and maintained. Call light in reach, will continue to monitor patient condition rd kirkpatrick
--- NOTE | 2018-11-22 07:47 | General Progress Note ---
Assessment/Plan Problem List: (1) Dehydration ICD Codes: E86.0 - Dehydration SNOMED: 43658343 (2) Diabetes ICD Codes: E11.9 - Diabetes SNOMED: 72810526 (3) CVA (cerebral vascular accident) ICD Codes: I63.9 - CVA (cerebral vascular accident) SNOMED: 325597082 (4) Colitis ICD Codes: K52.9 - Noninfective gastroenteritis and colitis, unspecified SNOMED: 80940236 Status: stable, progressing Assessment/Plan abx follow up cultures ivf pain rx Subjective ROS Limited/Unobtainable: No Constitutional: Reports: malaise, weakness HEENT: Reports: no symptoms Cardiovascular: Reports: no symptoms Respiratory: Reports: no symptoms Gastrointestinal/Abdominal: Reports: diarrhea Genitourinary: Reports: no symptoms Neurologic/Psychiatric: Reports: no symptoms Endocrine: Reports: no symptoms Hematologic/Lymphatic: Reports: no symptoms Allergies: Coded Allergies: PENICILLINS (Verified Allergy, Intermediate, Itching, 06/25/12) PROPOXYPHENE HCL (Verified Allergy, Intermediate, Itching, 06/25/12) TETRACYCLINE (Verified Allergy, Intermediate, Itching, 06/25/12) PROPOXYPHENE (Verified Allergy, Unknown, 06/25/12) TETRACYCLINES (Unverified Allergy, Unknown, 05/11/17) HYDROCODONE (Verified Adverse Reaction, Intermediate, GI UPSET, 05/05/16) SULFA (SULFONAMIDE ANTIBIOTICS) (Verified Adverse Reaction, Intermediate, GI UPSET, 05/05/16) All Systems: reviewed and negative except above Subjective no complaints. no diarrhea. on abx. cultures pending. Objective Last 24 Hour Vital Signs Date Time Temp Pulse Resp B/P (MAP) Pulse Ox O2 Delivery O2 Flow Rate FiO2 11/22/18 04:00 99.0 80 18 143/69 (93) 96 11/22/18 01:42 78 16 Room Air 21 11/22/18 00:00 98.8 79 18 127/58 (81) 95 11/21/18 21:00 Room Air 11/21/18 20:00 98.4 75 18 138/59 (85) 94 11/21/18 16:00 97.7 70 19 111/55 (73) 97 11/21/18 12:37 143/76 11/21/18 12:00 97.9 72 18 143/70 (94) 95 11/21/18 09:00 88 104/67 11/21/18 09:00 Room Air 11/21/18 08:00 98.1 88 20 104/67 (79) 94 Intake and Output 11/21/18 11/22/18 19:00 07:00 Intake Total 420 ml 1065 ml Balance 420 ml 1065 ml Intake Oral 420 ml 240 ml IV Total 825 ml # Voids 2 2 Laboratory Tests 11/22/18 05:35: White Blood Count 5.8, Red Blood Count 4.67, Hemoglobin 11.6L, Hematocrit 36.3L , Mean Corpuscular Volume 78L, Mean Corpuscular Hemoglobin 24.8L, Mean Corpuscular Hemoglobin Concent 31.9L, Red Cell Distribution Width 14.1, Platelet Count 189, Mean Platelet Volume 7.6, Neutrophils (%) (Auto) 55.1, Lymphocytes (%) (Auto) 29.7, Monocytes (%) (Auto) 10.3H, Eosinophils (%) (Auto) 4.2H, Basophils (%) (Auto) 0.8, Sodium Level 141, Potassium Level 3.9, Chloride Level 108H, Carbon Dioxide Level 24, Anion Gap 9, Blood Urea Nitrogen 5L, Creatinine 1.2, Estimat Glomerular Filtration Rate , Glucose Level 97, Calcium Level 9.5 Height (Feet): 5 Height (Inches): 5.00 Weight (Pounds): 160 General Appearance: WD/WN, alert Neck: supple Cardiovascular: regular rhythm Respiratory/Chest: lungs clear Abdomen: normal bowel sounds, non tender, soft, no organomegaly Edema: no edema noted Arm (L), no edema noted Arm (R), no edema noted Leg (L), no edema noted Leg (R), no edema noted Pedal (L), no edema noted Pedal (R), no edema noted Generalized Tam Wall MD Nov 22, 2018 07:47
--- NOTE | 2018-11-22 07:55 | NUR ---
HAND-OFF: Report given to KAYLEY Diamond.
[2018-11-22 08:09] VITALS: BP 142/58
[2018-11-22] MEDS: Aspirin Baby 81mg ORAL SCH (08:15)
[2018-11-22] MEDS: Multivitamin w/Minerals tab ORAL SCH (08:15)
[2018-11-22] MEDS: Lisinopril 20mg tab ORAL SCH (08:16)
[2018-11-22] MEDS: Docusate 100mg cap ORAL SCH ×2 (08:16→20:43)
[2018-11-22] MEDS: Milk of Magnesia 30ml Ud ORAL SCH (08:16)
--- NOTE | 2018-11-22 10:25 | Diagnostic Imaging Report ---
Indication: Abdominal pain Technique: Supine view of the abdomen Comparison: Conveyor Feeder image from 11/20/2018 CT scan Findings: Considerable gas is seen in other prominent but not frankly dilated large and small bowel, similar in extent to the previous study. Contrast from recent CT is seen within the bladder lumen. No unusual masses or calcifications. Inferior vena cava filter is again demonstrated Impression: Prominent gas-filled small bowel loops, similar to previous CT scan, nonspecific but could indicate enteritis changes
[2018-11-22 11:20] VITALS: BP 144/57
--- NOTE | 2018-11-22 12:31 | NUR ---
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 98.1 HR 84 RR 17 B/P 144/57 RA 98% IS: CIPRO IV IVF D5KCL @ 75ML/HR FLAGYL IV PEPCID IV HEPARIN SUBC ASA PO MED/SURG STATUS
--- NOTE | 2018-11-22 12:39 | Surgery Progress Note ---
Surgery Progress Note Subjective Additional Comments no acute events. states no pain. passing flatus. no BM yet. no n/v/f/c Objective Last 24 Hour Vital Signs Date Time Temp Pulse Resp B/P (MAP) Pulse Ox O2 Delivery O2 Flow Rate FiO2 11/22/18 11:20 98.1 84 17 144/57 (86) 96 11/22/18 08:25 Room Air 11/22/18 08:16 142/58 11/22/18 08:15 89 142/58 11/22/18 08:09 97.8 89 19 142/58 (86) 97 11/22/18 04:00 99.0 80 18 143/69 (93) 96 11/22/18 01:42 78 16 Room Air 21 11/22/18 00:00 98.8 79 18 127/58 (81) 95 11/21/18 21:00 Room Air 11/21/18 20:00 98.4 75 18 138/59 (85) 94 11/21/18 16:00 97.7 70 19 111/55 (73) 97 I&O Intake and Output 11/21/18 11/22/18 18:59 06:59 Intake Total 420 ml 1065 ml Balance 420 ml 1065 ml Intake Oral 420 ml 240 ml IV Total 825 ml # Voids 2 2 Drains: none Cardiovascular: RSR Respiratory: clear Abdomen: soft, distended, tenderness, present bowel sounds Extremities: no tenderness, no cyanosis Laboratory Tests Test 11/22/18 05:35 White Blood Count 5.8 K/UL (4.8-10.8) Red Blood Count 4.67 M/UL (4.20-5.40) Hemoglobin 11.6 G/DL (12.0-16.0) L Hematocrit 36.3 % (37.0-47.0) L Mean Corpuscular Volume 78 FL (80-99) L Mean Corpuscular Hemoglobin 24.8 PG (27.0-31.0) L Mean Corpuscular Hemoglobin Concent 31.9 G/DL (32.0-36.0) L Red Cell Distribution Width 14.1 % (11.6-14.8) Platelet Count 189 K/UL (150-450) Mean Platelet Volume 7.6 FL (6.5-10.1) Neutrophils (%) (Auto) 55.1 % (45.0-75.0) Lymphocytes (%) (Auto) 29.7 % (20.0-45.0) Monocytes (%) (Auto) 10.3 % (1.0-10.0) H Eosinophils (%) (Auto) 4.2 % (0.0-3.0) H Basophils (%) (Auto) 0.8 % (0.0-2.0) Sodium Level 141 MMOL/L (136-145) Potassium Level 3.9 MMOL/L (3.5-5.1) Chloride Level 108 MMOL/L (98-107) H Carbon Dioxide Level 24 MMOL/L (21-32) Anion Gap 9 mmol/L (5-15) Blood Urea Nitrogen 5 mg/dL (7-18) L Creatinine 1.2 MG/DL (0.55-1.30) Estimat Glomerular Filtration Rate mL/min (>60) Glucose Level 97 MG/DL (74-106) Calcium Level 9.5 MG/DL (8.5-10.1) Plan Problems: (1) Abdominal pain Assessment & Plan: generalized abdominal pain. no n/v/f/c. labs okay exam with discomfort but no peritonitis CT noted with colitis/proctitis KUB noted improving -okay for diet -bowel regimen -IV abx -AM labs -will follow with recs thank you Fabian Hamilton Nov 22, 2018 12:38
[2018-11-22] MEDS ORDERED: Milk of Magnesia 30ml Ud ORAL SCH (12:45)
[2018-11-22 16:00] VITALS: BP 149/71
[2018-11-22] MEDS: LORazepam Inj 2mg/ml 1ml IV PRN (17:44)
--- NOTE | 2018-11-22 18:02 | NUR ---
nurse notes patient very agitated, crying, wants to go to her daughter lives in [place], patient able to walk but very unsteady, ativan given, after a few min, patient become calm and [place] kirkpatrick rn
--- NOTE | 2018-11-22 19:14 | NUR ---
HAND-OFF: Report given to KAYLEY JO. Patient calm and quiet,free from injury, no sign of distress kayley kirkpatrick
--- NOTE | 2018-11-22 19:15 | NUR ---
NURSE NOTES: Received a report from Naya Stubbs RN. Pt is in stable condition. Confused. No respiratory distress noted. On room air. No c/o pain/discomfort. IV site is patent and intact. Bed in lowest position. Call light within reach. Will continue to monitor.
[2018-11-22 20:00] VITALS: BP 148/77
[2018-11-22] MEDS: Atorvastatin 20mg tab ORAL SCH (20:43)
[2018-11-23] VITALS: BP 140/82
[2018-11-23 04:00] VITALS: BP 139/84
[2018-11-23] MEDS: Heparin 5000 units/ml inj SUBQ SCH ×3 (05:27→21:08)
--- NOTE | 2018-11-23 07:00 | NUR ---
HAND-OFF: Report given to KAYLEY Browning.
--- NOTE | 2018-11-23 07:43 | NUR ---
NURSE NOTES: Patient confused, trying to get out of bed, bed doesn't have bed alarm, will notify the charge nurse to get another bed with alarm on it. skin intact. IV LFA fluid running at 75 cc. Bed at lowest position, side rails up, breaks engaged. Will keep making rounds and also nursing associate notified that patient to make rounds for patient's safely. Call light within reach, will keep monitoring.
[2018-11-23 08:00] VITALS: BP 165/80
--- NOTE | 2018-11-23 08:23 | General Progress Note ---
Assessment/Plan Problem List: (1) Dehydration ICD Codes: E86.0 - Dehydration SNOMED: 79303428 (2) Diabetes ICD Codes: E11.9 - Diabetes SNOMED: 78662262 (3) CVA (cerebral vascular accident) ICD Codes: I63.9 - CVA (cerebral vascular accident) SNOMED: 922793261 (4) Colitis ICD Codes: K52.9 - Noninfective gastroenteritis and colitis, unspecified SNOMED: 77247564 Status: stable, progressing Assessment/Plan abx follow up cultures advance diet pain rx check duplex- ?ivc filter removal Subjective ROS Limited/Unobtainable: No Constitutional: Reports: malaise, weakness HEENT: Reports: no symptoms Cardiovascular: Reports: no symptoms Respiratory: Reports: no symptoms Gastrointestinal/Abdominal: Reports: no symptoms Genitourinary: Reports: no symptoms Neurologic/Psychiatric: Reports: pre-existing deficit Endocrine: Reports: no symptoms Hematologic/Lymphatic: Reports: no symptoms Allergies: Coded Allergies: PENICILLINS (Verified Allergy, Intermediate, Itching, 06/25/12) PROPOXYPHENE HCL (Verified Allergy, Intermediate, Itching, 06/25/12) TETRACYCLINE (Verified Allergy, Intermediate, Itching, 06/25/12) PROPOXYPHENE (Verified Allergy, Unknown, 06/25/12) TETRACYCLINES (Unverified Allergy, Unknown, 05/11/17) HYDROCODONE (Verified Adverse Reaction, Intermediate, GI UPSET, 05/05/16) SULFA (SULFONAMIDE ANTIBIOTICS) (Verified Adverse Reaction, Intermediate, GI UPSET, 05/05/16) Subjective no complaints. no diarrhea. on abx. D/w - regarding removal of ivc filter Objective Last 24 Hour Vital Signs Date Time Temp Pulse Resp B/P (MAP) Pulse Ox O2 Delivery O2 Flow Rate FiO2 11/23/18 07:43 80 18 Room Air 21 11/23/18 07:43 99 Room Air 21 11/23/18 07:43 Room Air 11/23/18 04:00 98.3 93 20 139/84 (102) 99 11/23/18 00:00 98.4 102 20 140/82 (101) 100 11/22/18 22:22 Room Air 21 11/22/18 22:22 75 16 Room Air 21 11/22/18 22:22 99 Room Air 21 11/22/18 21:00 Room Air 11/22/18 20:00 98.0 107 18 148/77 (100) 99 11/22/18 16:00 97.5 75 18 149/71 (97) 96 11/22/18 11:20 98.1 84 17 144/57 (86) 96 11/22/18 08:25 Room Air Intake and Output 11/22/18 11/23/18 19:00 07:00 Intake Total 1065 ml 400 ml Balance 1065 ml 400 ml Intake Oral 240 ml IV Total 825 ml 400 ml # Voids 3 2 Height (Feet): 5 Height (Inches): 5.00 Weight (Pounds): 160 General Appearance: WD/WN, alert Neck: supple Cardiovascular: regular rhythm Respiratory/Chest: lungs clear, normal breath sounds Abdomen: normal bowel sounds, non tender, soft, no organomegaly Edema: no edema noted Arm (L), no edema noted Arm (R), no edema noted Leg (L), no edema noted Leg (R), no edema noted Pedal (L), no edema noted Pedal (R), no edema noted Generalized Tam Wall MD Nov 23, 2018 08:23
[2018-11-23] MEDS: Docusate 100mg cap ORAL SCH ×2 (09:56→21:00)
[2018-11-23] MEDS: Lisinopril 20mg tab ORAL SCH (09:56)
[2018-11-23] MEDS: Multivitamin w/Minerals tab ORAL SCH (09:57)
[2018-11-23] MEDS: Milk of Magnesia 30ml Ud ORAL SCH (09:57)
[2018-11-23] MEDS: Aspirin Baby 81mg ORAL SCH (09:57)
[2018-11-23] MEDS: LORazepam Inj 2mg/ml 1ml IV PRN ×2 (11:06→11:30)
--- NOTE | 2018-11-23 11:48 | NUR ---
NURSE NOTES: Patient been connected to IV anti-biotics, and patient removed and do not wanna be connected back. Tried to give Ativan, however patient didn't let me give it. I communicated Dr Hamilton regarding the matter and recommended to change patinet anti-biotic to PO. Dr Hamilton said will change it later. Will follow up on that.
--- NOTE | 2018-11-23 14:24 | Surgery Progress Note ---
Surgery Progress Note Subjective Additional Comments no acute events. pulled out IV and refuses to have IV placed again. does not want IV anything. does not want to be examined anymore. states pain improved. Objective Last 24 Hour Vital Signs Date Time Temp Pulse Resp B/P (MAP) Pulse Ox O2 Delivery O2 Flow Rate FiO2 11/23/18 09:57 84 165/80 11/23/18 09:56 165/80 11/23/18 09:00 Room Air 11/23/18 08:00 97.5 84 20 165/80 (108) 98 11/23/18 07:43 80 18 Room Air 21 11/23/18 07:43 99 Room Air 21 11/23/18 07:43 Room Air 21 11/23/18 04:00 98.3 93 20 139/84 (102) 99 11/23/18 00:00 98.4 102 20 140/82 (101) 100 11/22/18 22:22 Room Air 21 11/22/18 22:22 75 16 Room Air 21 11/22/18 22:22 99 Room Air 21 11/22/18 21:00 Room Air 11/22/18 20:00 98.0 107 18 148/77 (100) 99 11/22/18 16:00 97.5 75 18 149/71 (97) 96 I&O Intake and Output 11/22/18 11/23/18 18:59 06:59 Intake Total 990 ml 475 ml Balance 990 ml 475 ml Intake Oral 240 ml IV Total 750 ml 475 ml # Voids 3 2 Dressing: other Wound: other Drains: other Cardiovascular: other Respiratory: other Abdomen: other Extremities: other Plan Problems: (1) Abdominal pain Assessment & Plan: generalized abdominal pain. no n/v/f/c. labs okay exam with discomfort but no peritonitis CT noted with colitis/proctitis KUB noted improving -okay for diet -bowel regimen -transition to oral meds -AM labs -will follow with recs thank you Fabian Hamilton Nov 23, 2018 14:24
--- NOTE | 2018-11-23 14:53 | NUR ---
P.T Note: Pt refused to participate in P.T. Pt became agitated upon attempt to encourage pt to participate. RN notified/aware. Will re attempt when pt cooperates.
[2018-11-23 16:00] VITALS: BP 144/80
--- NOTE | 2018-11-23 19:45 | NUR ---
HAND-OFF: Report given to KAYLEY Herrera.
--- NOTE | 2018-11-23 19:50 | NUR ---
NURSE NOTES: Received patient awake in bed, able to verbalize needs, pt denies pain. No IV access, Dr Hamilton aware. Will change medications to PO per Dr Hamilton. Bed on lowest position, call light within reach, 3 side rails up. Full liquid diet noted.
[2018-11-23] MEDS: Atorvastatin 20mg tab ORAL SCH (21:00)
--- NOTE | 2018-11-24 04:47 | NUR ---
NURSE NOTES: Patient refused 2000, 0000, and 0400 vital signs. I attempted again at 0430 and patient kept yelling "GET OUT OF HERE! GET OUT OF HERE! I DONT WANT TO SEE A NURSE!". No s/s of acute distress. Charge nurse aware.
--- NOTE | 2018-11-24 05:22 | NUR ---
NURSE NOTES: Attempted to do linen change as patient and linen is wet with urine. Pt became combative, kicking, yelling, grabbed a towel and is continuously trying to hit me and nurse assistants. Security called for help. After 15 mins, linen change successful. Patient visibly upset. Will continue to monitor.
[2018-11-24] MEDS: Heparin 5000 units/ml inj SUBQ SCH ×3 (05:25→21:56)
[2018-11-24] MEDS: metroNIDAZOLE 500mg tab ORAL SCH ×3 (06:00→21:56)
--- NOTE | 2018-11-24 07:12 | NUR ---
HAND-OFF: Report given to KAYLEY Browning. Pt currently agitated.
--- NOTE | 2018-11-24 08:11 | NUR ---
NURSE NOTES: Patient awake, very confused, patient doesn't let anybody to go into her room. On room air, no sign of distress and shortness of breath. No sign of chest pain. No IV access, MD Wall and MD Hamilton is aware. Skin-intact. Bed at lowest position, side rails up x2, breaks engaged. Call light within reach. Will keep monitoring.
--- NOTE | 2018-11-24 08:43 | General Progress Note ---
Assessment/Plan Problem List: (1) Dehydration ICD Codes: E86.0 - Dehydration SNOMED: 67637987 (2) Diabetes ICD Codes: E11.9 - Diabetes SNOMED: 81338408 (3) CVA (cerebral vascular accident) ICD Codes: I63.9 - CVA (cerebral vascular accident) SNOMED: 261911669 (4) Colitis ICD Codes: K52.9 - Noninfective gastroenteritis and colitis, unspecified SNOMED: 18521565 Status: stable, progressing Assessment/Plan abx follow up cultures advance diet pain rx check duplex- ?ivc filter removal. await venous duplex Subjective ROS Limited/Unobtainable: No Constitutional: Reports: malaise, weakness HEENT: Reports: no symptoms Cardiovascular: Reports: no symptoms Respiratory: Reports: no symptoms Gastrointestinal/Abdominal: Reports: no symptoms Genitourinary: Reports: no symptoms Neurologic/Psychiatric: Reports: anxiety Endocrine: Reports: no symptoms Hematologic/Lymphatic: Reports: no symptoms Allergies: Coded Allergies: PENICILLINS (Verified Allergy, Intermediate, Itching, 06/25/12) PROPOXYPHENE HCL (Verified Allergy, Intermediate, Itching, 06/25/12) TETRACYCLINE (Verified Allergy, Intermediate, Itching, 06/25/12) PROPOXYPHENE (Verified Allergy, Unknown, 06/25/12) TETRACYCLINES (Unverified Allergy, Unknown, 05/11/17) HYDROCODONE (Verified Adverse Reaction, Intermediate, GI UPSET, 05/05/16) SULFA (SULFONAMIDE ANTIBIOTICS) (Verified Adverse Reaction, Intermediate, GI UPSET, 05/05/16) All Systems: reviewed and negative except above Subjective no complaints. no diarrhea. on abx. D/w - regarding removal of ivc filter very agitated this am. screaming Objective Last 24 Hour Vital Signs Date Time Temp Pulse Resp B/P (MAP) Pulse Ox O2 Delivery O2 Flow Rate FiO2 11/24/18 08:04 Room Air 21 11/24/18 08:04 Room Air 21 11/24/18 08:04 Room Air 21 11/23/18 21:00 Room Air 11/23/18 20:00 98 Room Air 21 11/23/18 20:00 99 18 Room Air 21 11/23/18 20:00 Room Air 21 11/23/18 16:00 98.0 108 20 144/80 (101) 100 2/12/19 09:57 84 165/80 11/23/18 09:56 165/80 11/23/18 09:00 Room Air Intake and Output 11/23/18 11/24/18 19:00 07:00 Intake Total 320 ml 110 ml Balance 320 ml 110 ml Intake Oral 320 ml 110 ml # Voids 2 2 Height (Feet): 5 Height (Inches): 5.00 Weight (Pounds): 159 Objective General Appearance: WD/WN, alert Neck: supple Cardiovascular: regular rhythm Respiratory/Chest: lungs clear, normal breath sounds Abdomen: normal bowel sounds, non tender, soft, no organomegaly Edema: no edema noted Arm (L), no edema noted Arm (R), no edema noted Leg (L), no edema noted Leg (R), no edema noted Pedal (L), no edema noted Pedal (R), no edema noted Generalized Tam Wall MD Nov 24, 2018 08:43
[2018-11-24] MEDS: Milk of Magnesia 30ml Ud ORAL SCH ×2 (09:00→10:16)
[2018-11-24] MEDS: Lisinopril 20mg tab ORAL SCH (10:15)
[2018-11-24] MEDS: Aspirin Baby 81mg ORAL SCH (10:15)
[2018-11-24] MEDS: Ciprofloxacin 500mg tab ORAL SCH ×2 (10:16→21:00)
[2018-11-24] MEDS: Docusate 100mg cap ORAL SCH ×2 (10:16→21:00)
[2018-11-24] MEDS: Multivitamin w/Minerals tab ORAL SCH (10:16)
[2018-11-24] MEDS ORDERED: Haloperidol 5mg/ml Inj IM PRN (12:15)
--- NOTE | 2018-11-24 12:16 | Consultation ---
History of Present Illness General Chief Complaint: Pain Reason for Consultation: colitis Present Illness HPI 78-year-old female with history of schizophrenia, stroke, DVT, status post IVC filter, GI bleed, diabetes, hypertension, and diastolic congestive heart failure. The pt is agitated and confused. yelling and attempting to come out of bed. the pt is easily agitated. the pt is uncooperative and does not follow direction. the pt has memory impairment and has waxing and waning of consciousness. Allergies: Coded Allergies: PENICILLINS (Verified Allergy, Intermediate, Itching, 06/25/12) PROPOXYPHENE HCL (Verified Allergy, Intermediate, Itching, 06/25/12) TETRACYCLINE (Verified Allergy, Intermediate, Itching, 06/25/12) PROPOXYPHENE (Verified Allergy, Unknown, 06/25/12) TETRACYCLINES (Unverified Allergy, Unknown, 05/11/17) HYDROCODONE (Verified Adverse Reaction, Intermediate, GI UPSET, 05/05/16) SULFA (SULFONAMIDE ANTIBIOTICS) (Verified Adverse Reaction, Intermediate, GI UPSET, 05/05/16) Medication History Scheduled Amlodipine Besylate* (Amlodipine Besylate*), 10 MG ORAL DAILY, (Reported) Aspirin* (Aspirin*), 81 MG ORAL DAILY, (Reported) Atorvastatin Calcium* (Atorvastatin Calcium*), 20 MG ORAL BEDTIME, (Reported) Clonidine Hcl (Clonidine Hcl), 0.1 MG PO EVERY 4 HOURS, (Reported) Docusate Sodium* (Docusate Sodium*), 100 MG ORAL DAILY, (Reported) Docusate Sodium* (Colace*), 100 MG ORAL DAILY, (Reported) Lisinopril (Lisinopril*), 40 MG ORAL DAILY, (Reported) Lisinopril (Lisinopril*), 20 MG ORAL DAILY, (Reported) Magnesium Hydroxide* (Milk Of Magnesia*), 30 ML ORAL DAILY, (Reported) Melatonin (Melatonin), 5 MG PO BEDTIME, (Reported) Melatonin (Melatonin), 5 MG PO BEDTIME, (Reported) Multivitamin With Minerals (Multivitamins With Minerals*), 1 TAB ORAL DAILY, ( Reported) Na Phos,M-B/Na Phos,Di-Ba (Fleet Enema), 133 ML RC QOD, (Reported) Pantoprazole* (Protonix*), 40 MG ORAL DAILY, (Reported) Ranitidine Hcl* (Zantac*), 150 MG ORAL BEDTIME, (Reported) Risperidone (Risperidone), 3 MG ORAL HS, (Reported) Risperidone* (Risperdal*), 2 MG ORAL DAILY, (Reported) Tramadol Hcl* (Ultram*), 50 MG ORAL Q6H, (Reported) Scheduled PRN Acetaminophen (Acetaminophen), 650 MG ORAL EVERY 4 HOURS PRN for Pain Scale (3-5 ), (Reported) Acetaminophen* (Tylenol Extra Strength*), 1,000 MG ORAL Q4HR PRN for Mild Pain/ Temp > 100.5, (Reported) Albuterol Sulfate* (Albuterol Sulfate Hhn*), 3 ML INH Q4H PRN for Shortness of Breath, (Reported) Miscellaneous Medications Bisacodyl (Dulcolax), 10 MG RC, (Reported) Clonidine HCl (Clonidine HCl), 0.1 MG GT, (Reported) Cranberry (Cranberry), 850 MG PO, (Reported) Fluoxetine (Fluoxetine Hcl), 25 GM MISC, (Reported) Ipratropium/Albuterol Sulfate (DuoNeb 0.5-3(2.5)mg/3ml), 3 ML HHN, (Reported) Linagliptin (Tradjenta), 5 MG PO, (Reported) Na Phos,M-B/Na Phos,Di-Ba (Fleet Enema), 133 ML RC, (Reported) Unable to Obtain Medications (Unable To Obtain Meds), (Reported) Patient History Limited by: medical condition History Provided By: Medical Record, PMD Healthcare decision maker Resuscitation status Full Code Advanced Directive on File Past Medical/Surgical History Past Medical/Surgical History: (1) Occult blood in stools (2) Gastric ulcer (3) Dehydration (4) Dementia (5) Diabetes (6) Fecal impaction (7) Hyponatremia (8) Psychiatric disorder (9) Hypoalbuminemia (10) Altered mental status (11) DVT (deep venous thrombosis) (12) Hypertension (13) GI bleed (14) CVA (cerebral vascular accident) (15) UTI (lower urinary tract infection) (16) E. coli UTI (urinary tract infection) (17) Cellulitis of lower extremity (18) acute sepsis (19) Colitis (20) Chronic deep vein thrombosis (DVT) (21) Abdominal pain Review of Systems Psychiatric: Reports: prior hx, anxiety, depressed feelings, emotional problems Physical Exam General Appearance: alert, mild distress, agitated Neurologic: disoriented Last 24 Hour Vital Signs Date Time Temp Pulse Resp B/P (MAP) Pulse Ox O2 Delivery O2 Flow Rate FiO2 11/24/18 10:16 99 144/80 11/24/18 10:15 144/80 11/24/18 09:00 Room Air 11/24/18 08:04 Room Air 21 11/24/18 08:04 Room Air 21 11/24/18 08:04 Room Air 21 11/23/18 21:00 Room Air 11/23/18 20:00 98 Room Air 21 11/23/18 20:00 99 18 Room Air 11/23/18 20:00 Room Air 11/23/18 16:00 98.0 108 20 144/80 (101) 100 Intake and Output 11/23/18 11/24/18 19:00 07:00 Intake Total 320 ml 110 ml Balance 320 ml 110 ml Intake Oral 320 ml 110 ml # Voids 2 2 Height (Feet): 5 Height (Inches): 5.00 Weight (Pounds): 159 Medications Current Medications Medications (Trade) Dose Ordered Sig/Jackie Route PRN Reason Start Time Stop Time Status Last Admin Dose Admin Acetaminophen (Tylenol) 650 mg Q4H PRN ORAL fever/Mild pain 11/20/18 16:30 12/20/18 14:00 Al Hydroxide/Mg Hydroxide (Mylanta II) 30 ml Q6H PRN ORAL dyspepsia 11/20/18 14:02 12/20/18 14:01 Albuterol Sulfate (Proventil) 2.5 mg Q4H PRN HHN Shortness of Breath 11/20/18 15:50 11/25/18 15:49 Amlodipine Besylate (Norvasc) 10 mg DAILY ORAL 11/21/18 09:00 12/21/18 08:59 11/24/18 10:16 Aspirin (ASA) 81 mg DAILY ORAL 11/21/18 09:00 12/21/18 08:59 11/24/18 10:15 Atorvastatin Calcium (Lipitor) 20 mg BEDTIME ORAL 11/22/18 21:00 12/20/18 20:59 11/22/18 20:43 Bisacodyl (Dulcolax) 10 mg DAILYPRN PRN RECTAL Constipation 11/20/18 15:45 12/20/18 15:44 Ciprofloxacin (Cipro 500mg tab) 500 mg EVERY 12 HOURS ORAL 11/24/18 09:00 12/01/18 08:59 11/24/18 10:16 Dextrose (Dextrose 50%) 25 ml Q30M PRN IV Hypoglycemia 11/20/18 14:02 12/20/18 14:01 Dextrose (Dextrose 50%) 50 ml Q30M PRN IV Hypoglycemia 11/20/18 14:02 12/20/18 14:01 Diphenhydramine HCl (Benadryl) 25 mg Q6H PRN ORAL Itching/Pruritis 11/20/18 14:02 12/20/18 14:01 Docusate Sodium (Colace) 100 mg EVERY 12 HOURS ORAL 11/20/18 21:00 12/20/18 20:59 11/24/18 10:16 Famotidine (Pepcid I.v.) 20 mg Q12HR IVP 11/20/18 21:00 12/20/18 20:59 11/23/18 10:03 Haloperidol Lactate (Haldol) 5 mg Q6H PRN IM Agitation 11/24/18 12:15 12/24/18 12:14 Heparin Sodium (Porcine) (Heparin 5000 units/ml) 5,000 units EVERY 8 HOURS SUBQ 11/20/18 22:00 12/20/18 21:59 11/23/18 05:27 Iopamidol (Isovue-300 100ml) 100 ml NOW PRN INJ Radiology Procedure 11/20/18 11:15 Lisinopril (Prinivil) 20 mg DAILY ORAL 11/21/18 09:00 12/21/18 08:59 11/24/18 10:15 Magnesium Hydroxide (Mom) 30 ml DAILY ORAL 11/21/18 09:00 12/21/18 08:59 11/23/18 09:57 Metronidazole (Flagyl) 500 mg Q8HR ORAL 11/24/18 06:00 12/01/18 05:59 Morphine Sulfate (Morphine Sulfate) 1 mg Q4H PRN IVP For Mild Pain 11/20/18 16:15 11/27/18 14:04 Morphine Sulfate (Morphine Sulfate) 2 mg Q4H PRN IVP Moderate Pain (Pain Scale 4-6) 11/20/18 16:15 11/27/18 14:03 11/21/18 11:07 Multivitamins Therapeutic (Therapeutic Multivitamin) 1 ea DAILY ORAL 11/21/18 09:00 12/21/18 08:59 11/24/18 10:16 Olanzapine (ZyPREXA) 2.5 mg TID ORAL 11/24/18 13:00 12/24/18 12:59 Ondansetron HCl (Zofran) 4 mg Q6H PRN IVP Nausea & Vomiting 11/20/18 14:01 12/20/18 14:00 Pantoprazole (Protonix) 40 mg DAILY ORAL 11/21/18 09:00 12/21/18 08:59 11/24/18 10:15 Temazepam (Restoril) 15 mg HSPRN PRN ORAL Insomnia 11/20/18 21:00 11/27/18 20:59 Tramadol HCl (Ultram) 50 mg Q6H PRN ORAL Moderate Pain(4-6) 11/20/18 16:06 11/27/18 16:05 11/22/18 04:50 Assessment/Plan Problem List: (1) Acute metabolic encephalopathy ICD Codes: G93.41 - Metabolic encephalopathy SNOMED: 74081629, 446059155 (2) Schizophrenia ICD Codes: F20.9 - Schizophrenia, unspecified SNOMED: 21575085 Status: stable, progressing, not improved Assessment/Plan zyprexa 2.5mg po tid haldol Im prn provided ro/Maria D Johnson MD Nov 24, 2018 12:16
[2018-11-24] MEDS: OLANZapine 2.5mg tab ORAL SCH ×2 (13:11→17:23)
--- NOTE | 2018-11-24 13:11 | Surgery Progress Note ---
Surgery Progress Note Subjective Additional Comments states abdominal pain resolved. no n/v/f/c. tolerating diet. +flatus Objective Last 24 Hour Vital Signs Date Time Temp Pulse Resp B/P (MAP) Pulse Ox O2 Delivery O2 Flow Rate FiO2 11/24/18 10:16 99 144/80 11/24/18 10:15 144/80 11/24/18 09:00 Room Air 11/24/18 08:04 Room Air 21 11/24/18 08:04 Room Air 11/24/18 08:04 Room Air 21 11/23/18 21:00 Room Air 11/23/18 20:00 98 Room Air 21 11/23/18 20:00 99 18 Room Air 21 11/23/18 20:00 Room Air 21 11/23/18 16:00 98.0 108 20 144/80 (101) 100 I&O Intake and Output 11/23/18 11/24/18 19:00 07:00 Intake Total 320 ml 110 ml Balance 320 ml 110 ml Intake Oral 320 ml 110 ml # Voids 2 2 Cardiovascular: RSR Respiratory: clear Abdomen: soft, non-tender, present bowel sounds, non-distended Extremities: no cyanosis Plan Problems: (1) Abdominal pain Assessment & Plan: generalized abdominal pain. no n/v/f/c. labs okay exam with discomfort but no peritonitis CT noted with colitis/proctitis KUB noted improving -okay for diet -bowel regimen -transition to oral meds -AM labs -d/c planning -will follow with recs thank you Fabian Hamilton Nov 24, 2018 13:11
--- NOTE | 2018-11-24 14:00 | NUR ---
NURSE NOTES: Patient refused for vitals and also refused to be changed.
--- NOTE | 2018-11-24 15:04 | NUR ---
NURSE NOTES: Patient resting, took her medications. Will keep monitoring.
--- NOTE | 2018-11-24 19:28 | NUR ---
HAND-OFF: Report given to KAYLEY hWite.
--- NOTE | 2018-11-24 19:53 | NUR ---
NURSE NOTES: Received patient in bed, awake, responsive to verbal and tactile stimuli, no acute distress noted, call light within reach. Bed is in low position, locked and alarm is on. Will continue with POC, monitor for comfort and safety.
[2018-11-24] MEDS: Atorvastatin 20mg tab ORAL SCH (21:00)
--- NOTE | 2018-11-24 22:57 | NUR ---
NURSE NOTES: RN and SULF[employer] OPERATOR attempted to check patients vital signs and administer prescribed medications, patient presents in bed, with flat sheet covering her head refusing to communicate, stated that she doesn't want to take her medications and that she doesn't want to be bothered.
[2018-11-25 04:00] VITALS: BP 103/54
[2018-11-25] MEDS: metroNIDAZOLE 500mg tab ORAL SCH ×3 (06:00→22:00)
[2018-11-25] MEDS: Heparin 5000 units/ml inj SUBQ SCH ×3 (06:00→22:00)
--- NOTE | 2018-11-25 07:07 | NUR ---
HAND-OFF: Report given to Robbie ZALDIVAR.
--- NOTE | 2018-11-25 07:19 | NUR ---
NURSE NOTES: Received report from KAYLEY White. patient in bed. sleeping. no respiratory distress noted. no c/o pain at this time. bed in the lowest position. alarm on. call light within reach. will continue to monitor.
--- NOTE | 2018-11-25 07:29 | General Progress Note ---
Assessment/Plan Problem List: (1) Dehydration ICD Codes: E86.0 - Dehydration SNOMED: 46617823 (2) Diabetes ICD Codes: E11.9 - Diabetes SNOMED: 28114278 (3) CVA (cerebral vascular accident) ICD Codes: I63.9 - CVA (cerebral vascular accident) SNOMED: 614798962 (4) Colitis ICD Codes: K52.9 - Noninfective gastroenteritis and colitis, unspecified SNOMED: 26576977 Status: stable, progressing Assessment/Plan abx follow up cultures advance diet pain rx await call back from family regarding ivc filter removal Subjective ROS Limited/Unobtainable: No Constitutional: Reports: malaise, weakness HEENT: Reports: no symptoms Cardiovascular: Reports: no symptoms Respiratory: Reports: no symptoms Gastrointestinal/Abdominal: Reports: diarrhea Genitourinary: Reports: no symptoms Neurologic/Psychiatric: Reports: anxiety, depressed Endocrine: Reports: no symptoms Hematologic/Lymphatic: Reports: no symptoms Allergies: Coded Allergies: PENICILLINS (Verified Allergy, Intermediate, Itching, 06/25/12) PROPOXYPHENE HCL (Verified Allergy, Intermediate, Itching, 06/25/12) TETRACYCLINE (Verified Allergy, Intermediate, Itching, 06/25/12) PROPOXYPHENE (Verified Allergy, Unknown, 06/25/12) TETRACYCLINES (Unverified Allergy, Unknown, 05/11/17) HYDROCODONE (Verified Adverse Reaction, Intermediate, GI UPSET, 05/05/16) SULFA (SULFONAMIDE ANTIBIOTICS) (Verified Adverse Reaction, Intermediate, GI UPSET, 05/05/16) All Systems: reviewed and negative except above Subjective no complaints. no diarrhea. on abx. D/w - regarding removal of ivc filter less agitated. message left with dtr regarding ivc filter removal. no call back yet Objective Last 24 Hour Vital Signs Date Time Temp Pulse Resp B/P (MAP) Pulse Ox O2 Delivery O2 Flow Rate FiO2 11/25/18 04:00 83 18 103/54 (70) 11/24/18 22:02 Room Air 11/24/18 21:04 Room Air 21 11/24/18 21:04 97 Room Air 21 11/24/18 21:02 103 18 Room Air 21 11/24/18 10:16 99 144/80 11/24/18 10:15 144/80 11/24/18 09:00 Room Air 11/24/18 08:04 Room Air 21 11/24/18 08:04 Room Air 21 11/24/18 08:04 Room Air 21 Intake and Output 11/24/18 11/25/18 19:00 07:00 Intake Total 260 ml Balance 260 ml Intake Oral 260 ml # Voids 6 2 # Bowel Movements 1 Height (Feet): 5 Height (Inches): 5.00 Weight (Pounds): 159 Objective General Appearance: WD/WN, alert Neck: supple Cardiovascular: regular rhythm Respiratory/Chest: lungs clear, normal breath sounds Abdomen: normal bowel sounds, non tender, soft, no organomegaly Edema: no edema noted Arm (L), no edema noted Arm (R), no edema noted Leg (L), no edema noted Leg (R), no edema noted Pedal (L), no edema noted Pedal (R), no edema noted Generalized Tam Wall MD Nov 25, 2018 07:29
[2018-11-25] MEDS: Milk of Magnesia 30ml Ud ORAL SCH (09:00)
[2018-11-25] MEDS: OLANZapine 2.5mg tab ORAL SCH ×3 (09:00→18:36)
[2018-11-25] MEDS: Docusate 100mg cap ORAL SCH ×2 (09:00→21:00)
[2018-11-25] MEDS: Aspirin Baby 81mg ORAL SCH (09:00)
[2018-11-25] MEDS: Ciprofloxacin 500mg tab ORAL SCH ×2 (09:00→21:00)
[2018-11-25] MEDS: Lisinopril 20mg tab ORAL SCH (09:00)
[2018-11-25] MEDS: Multivitamin w/Minerals tab ORAL SCH (09:00)
--- NOTE | 2018-11-25 09:49 | NUR ---
NURSE NOTES: patient refused all morning medications. explained risks and benefits, still refused. will continue to monitor
--- NOTE | 2018-11-25 12:41 | NUR ---
NURSE NOTES: Pt received for continuation of care
--- NOTE | 2018-11-25 12:46 | NUR ---
HAND-OFF: Report given to KAYLEY Carroll.
--- NOTE | 2018-11-25 12:57 | NUR ---
NURSE NOTES: Pt offered medications. " You keep them , and get away from me" Risk and Benefit explained
--- NOTE | 2018-11-25 13:10 | General Progress Note ---
Assessment/Plan Problem List: (1) Acute metabolic encephalopathy ICD Codes: G93.41 - Metabolic encephalopathy SNOMED: 46305122, 503031956 (2) Schizophrenia ICD Codes: F20.9 - Schizophrenia, unspecified SNOMED: 27925967 Assessment/Plan zyprexa 2.5mg po tid haldol Im prn provided ro/st haldol dec 25mg IM x 1 time Subjective Neurologic/Psychiatric: Reports: anxiety Allergies: Coded Allergies: PENICILLINS (Verified Allergy, Intermediate, Itching, 06/25/12) PROPOXYPHENE HCL (Verified Allergy, Intermediate, Itching, 06/25/12) TETRACYCLINE (Verified Allergy, Intermediate, Itching, 06/25/12) PROPOXYPHENE (Verified Allergy, Unknown, 06/25/12) TETRACYCLINES (Unverified Allergy, Unknown, 05/11/17) HYDROCODONE (Verified Adverse Reaction, Intermediate, GI UPSET, 05/05/16) SULFA (SULFONAMIDE ANTIBIOTICS) (Verified Adverse Reaction, Intermediate, GI UPSET, 05/05/16) Subjective angry agitated delusional the pt refusing po meds Objective Last 24 Hour Vital Signs Date Time Temp Pulse Resp B/P (MAP) Pulse Ox O2 Delivery O2 Flow Rate FiO2 11/25/18 09:00 Room Air 11/25/18 04:00 83 18 103/54 (70) 11/24/18 22:02 Room Air 11/24/18 21:04 Room Air 21 11/24/18 21:04 97 Room Air 21 11/24/18 21:02 103 18 Room Air 21 Intake and Output 11/24/18 11/25/18 19:00 07:00 Intake Total 260 ml Balance 260 ml Intake Oral 260 ml # Voids 6 2 # Bowel Movements 1 Height (Feet): 5 Height (Inches): 5.00 Weight (Pounds): 159 General Appearance: alert, confused, severe distress, agitated Maria D Lofton MD Nov 25, 2018 13:10
[2018-11-25] MEDS ORDERED: LORazepam Inj 2mg/ml 1ml IM PRN (13:15)
[2018-11-25] MEDS ORDERED: Haloperidol Decanoate 50mg Inj IM SCH (14:00)
--- NOTE | 2018-11-25 14:46 | NUR ---
NURSE NOTES: Dr Lantigua is here gave orders to give Haldol Deconate.
--- NOTE | 2018-11-25 14:59 | NUR ---
P.T Note: P.T attempted however unsuccessful . Pt uncooperative and belligerent. Will reattempt when pt cooperates.
--- NOTE | 2018-11-25 16:48 | NUR ---
NURSE NOTES: In bed remains talking to self sexual in nature. Attempts made to redirect " Get out of here you took my Baby" Will continue to monitor, and make frequent rounds for safety
--- NOTE | 2018-11-25 17:09 | Surgery Progress Note ---
Surgery Progress Note Subjective Additional Comments no acute events. stable. more agitated today. refused to be examined. Objective Last 24 Hour Vital Signs Date Time Temp Pulse Resp B/P (MAP) Pulse Ox O2 Delivery O2 Flow Rate FiO2 11/25/18 09:00 Room Air 11/25/18 04:00 83 18 103/54 (70) 11/24/18 22:02 Room Air 11/24/18 21:04 Room Air 21 11/24/18 21:04 97 Room Air 21 11/24/18 21:02 103 18 Room Air 21 I&O Intake and Output 11/24/18 11/25/18 19:00 07:00 Intake Total 260 ml Balance 260 ml Intake Oral 260 ml # Voids 6 2 # Bowel Movements 1 Dressing: other Wound: other Drains: none Cardiovascular: other Respiratory: other Abdomen: other Extremities: other Plan Problems: (1) Abdominal pain Assessment & Plan: generalized abdominal pain. no n/v/f/c. labs okay exam with discomfort but no peritonitis CT noted with colitis/proctitis KUB noted improving -okay for diet -bowel regimen -transition to oral meds -AM labs -d/c planning -family discussion for IVC filter removal pending -will follow with recs thank you Fabian Hamilton Nov 25, 2018 17:09
--- NOTE | 2018-11-25 19:00 | NUR ---
NURSE NOTES: Pt refused all care. Currently soiled became upset with nurse bindery library technical assistant offered care,
--- NOTE | 2018-11-25 19:30 | NUR ---
NURSE NOTES: RECEIVED PATIENT LYING IN BED, AWAKE, INSTANTLY VERBALLY ABUSIVE, CURSING UPON ENTERING ROOM; DOES NOT APPEAR TO BE IN PAIN, NO FACIAL GRIMACING/MOANING. RECEIVED WITHOUT IV ACCESS, MD AWARE. NO SIGNS AND SYMPTOMS OF ACUTE CARDIO RESPIRATORY DISTRESS/SHORTNESS OF BREATH, NO EDEMA NOTED. NO REPORT OF GI DISTRESS, NO N/V/D. SIDE RAILS UP X3 FOR PATIENT SAFETY, BED IN LOWEST POSITION, CALL LIGHT WITHIN REACH. ENCOURAGED PATIENT TO UTILIZE CALL LIGHT FOR ASSISTANCE, KEPT YELLING GET OUT OF MY ROOM, MOTIONING TO THROW WATER PITCHER, ATTEMPTS TO DE ESCALATE BEHAVIOR EFFECTIVE AT THIS TIME. NAD.
--- NOTE | 2018-11-25 19:37 | NUR ---
NURSE NOTES: Pt is currently laying down quite. Dr Lantigua phoned to update her on pt status
--- NOTE | 2018-11-25 19:38 | NUR ---
HAND-OFF: Report given to Sana CHO.
[2018-11-25] MEDS: Atorvastatin 20mg tab ORAL SCH (21:00)
--- NOTE | 2018-11-25 22:00 | NUR ---
NURSE NOTES: NON COMPLIANT WITH PLAN OF CARE, REFUSED ALL MEDICATION-
[2018-11-26] MEDS: metroNIDAZOLE 500mg tab ORAL SCH ×3 (06:00→21:28)
[2018-11-26] MEDS: Heparin 5000 units/ml inj SUBQ SCH ×3 (06:00→21:28)
--- NOTE | 2018-11-26 06:37 | NUR ---
NURSE NOTES: DR. WILSON IN TO ASSESS PATIENT, MADE AWARE OF PATIENT NON COMPLIANCE WITH PLAN OF CARE. NNO.
--- NOTE | 2018-11-26 07:30 | NUR ---
HAND-OFF: Report given to MARQUIS PAEZ.
--- NOTE | 2018-11-26 08:52 | General Progress Note ---
Assessment/Plan Problem List: (1) Dehydration ICD Codes: E86.0 - Dehydration SNOMED: 21631257 (2) Diabetes ICD Codes: E11.9 - Diabetes SNOMED: 77710730 (3) CVA (cerebral vascular accident) ICD Codes: I63.9 - CVA (cerebral vascular accident) SNOMED: 020060306 (4) Colitis ICD Codes: K52.9 - Noninfective gastroenteritis and colitis, unspecified SNOMED: 65187206 Status: stable, progressing Assessment/Plan abx follow up cultures advance diet pain rx await call back from family regarding ivc filter removal compliance stressed ?psych transfer Subjective Allergies: Coded Allergies: PENICILLINS (Verified Allergy, Intermediate, Itching, 06/25/12) PROPOXYPHENE HCL (Verified Allergy, Intermediate, Itching, 06/25/12) TETRACYCLINE (Verified Allergy, Intermediate, Itching, 06/25/12) PROPOXYPHENE (Verified Allergy, Unknown, 06/25/12) TETRACYCLINES (Unverified Allergy, Unknown, 05/11/17) HYDROCODONE (Verified Adverse Reaction, Intermediate, GI UPSET, 05/05/16) SULFA (SULFONAMIDE ANTIBIOTICS) (Verified Adverse Reaction, Intermediate, GI UPSET, 05/05/16) All Systems: reviewed and negative except above Subjective remains agitated and uncooperative with care. refusing vitals. not taking meds Objective Last 24 Hour Vital Signs Date Time Temp Pulse Resp B/P (MAP) Pulse Ox O2 Delivery O2 Flow Rate FiO2 11/25/18 21:07 Room Air 11/25/18 09:00 Room Air Intake and Output 11/25/18 11/26/18 19:00 07:00 Intake Total 120 ml Balance 120 ml Intake Oral 120 ml # Voids 1 Height (Feet): 5 Height (Inches): 5.00 Weight (Pounds): 159 Objective General Appearance: WD/WN, alert Neck: supple Cardiovascular: regular rhythm Respiratory/Chest: lungs clear, normal breath sounds Abdomen: normal bowel sounds, non tender, soft, no organomegaly Edema: no edema noted Arm (L), no edema noted Arm (R), no edema noted Leg (L), no edema noted Leg (R), no edema noted Pedal (L), no edema noted Pedal (R), no edema noted Generalized Tam Wall MD Nov 26, 2018 08:52
[2018-11-26] MEDS: Ciprofloxacin 500mg tab ORAL SCH ×2 (09:00→21:00)
[2018-11-26] MEDS: Aspirin Baby 81mg ORAL SCH (09:00)
[2018-11-26] MEDS: Docusate 100mg cap ORAL SCH ×2 (09:00→21:00)
[2018-11-26] MEDS: OLANZapine 2.5mg tab ORAL SCH ×3 (09:00→17:22)
[2018-11-26] MEDS: Lisinopril 20mg tab ORAL SCH (09:00)
[2018-11-26] MEDS: Multivitamin w/Minerals tab ORAL SCH (09:00)
[2018-11-26] MEDS: Milk of Magnesia 30ml Ud ORAL SCH (09:00)
--- NOTE | 2018-11-26 09:05 | NUR ---
NURSE NOTES: received patient A/A/O, initially nice and able to response to basic questions on my initial rounds this am. On med rounds patient all of a sudden snapped and just literally stare sharp @ me after I explained what's the plan of care for today. She claimed as well that she ate although her tray was not touched and mentioned to her and she got upset and insisted that she ate and she cussed me out. Refused v/s and medications this am. she just lie down and not attempting to get out of bed @ this time. patient has no IV access and was reported that PMD made aware. siderails are up x3. call light is within reach. will cont to monitor.
[2018-11-26] MEDS ORDERED: Haloperidol Decanoate 50mg Inj IM SCH (12:30)
--- NOTE | 2018-11-26 12:44 | NUR ---
NURSE NOTES: haldol dec was given to Left gluteus raffy with 1 security and 2 staff assist. patient is quite noncompliant, combative and use of foul language towards staff. patient does refused to eat. However, does not attempt to get out of bed. siderails are up x3. call light is within reach. will cont to monitor.
--- NOTE | 2018-11-26 14:30 | Surgery Progress Note ---
Surgery Progress Note Subjective Additional Comments no acute events. agitated today. denies pain. no n/v/f/c Objective Last 24 Hour Vital Signs Date Time Temp Pulse Resp B/P (MAP) Pulse Ox O2 Delivery O2 Flow Rate FiO2 11/26/18 09:05 Room Air 11/25/18 21:07 Room Air I&O Intake and Output 11/25/18 11/26/18 19:00 07:00 Intake Total 120 ml Balance 120 ml Intake Oral 120 ml # Voids 1 Cardiovascular: RSR Respiratory: clear Abdomen: soft, non-tender, non-distended Extremities: no cyanosis Plan Problems: (1) Abdominal pain Assessment & Plan: generalized abdominal pain. no n/v/f/c. labs okay exam with discomfort but no peritonitis CT noted with colitis/proctitis KUB noted improving -okay for diet -bowel regimen -transition to oral meds -AM labs -d/c planning -family discussion for IVC filter removal pending -will follow with recs thank you Fabian Hamilton Nov 26, 2018 14:30
--- NOTE | 2018-11-26 15:31 | NUR ---
RD ASSESSMENT & RECOMMENDATIONS SEE CARE ACTIVITY FOR COMPLETE ASSESSMENT DAILY ESTIMATED NEEDS: Needs based on DM, cardiac 64kg adj 25-30 kcals/kg 6704-4628 total kcals 1-1.5 g protein/kg 64-96 g total protein 25-30 mL/kg 9393-6718 total fluid mLs NUTRITION DIAGNOSIS: (1) Inadequate oral intake most likely R/T psych hx as evidenced by pt refusing last 8 meals, refusing care/meds as well, verbally abusive and combative. CURRENT DIET:SOFT PO DIET RECOMMENDATIONS: Liberalized diet while PO intake is poor + low fiber/residue ADDITIONAL RECOMMENDATIONS: 1) Txr pt to bed w/ bedscale if able, obtain calibrated bedscale wt 2) Monitor PO intake- refusing meals at this time 3) Low Na, CCHO MED diet w/ PO intake consistency >50% 4) Monitor need for hypoglycemic agents- h/o DM 5) Monitor PO tolerance- Colitis dx
--- NOTE | 2018-11-26 18:47 | NUR ---
NURSE NOTES: remained noncompliant and refusing all med regimen and care. patient appeared to be combative. kept bed in the lowest position. siderails are up x3. call light is within reach. will cont to monitor.
--- NOTE | 2018-11-26 19:06 | NUR ---
HAND-OFF: Report given to Fara.
--- NOTE | 2018-11-26 19:30 | NUR ---
NURSE NOTES: RECEIVED PATIENT LYING IN BED, AWAKE, LESS AGGRESSIVE, CONTINUE TO REFUSE PHYSICAL ASSESSMENT. NO COMPLAINTS OF LEG PAIN. NO SIGNS AND SYMPTOMS OF ACUTE CARDIO RESPIRATORY DISTRESS/SHORTNESS OF BREATH. NO REPORT OF N/V/D. SIDE RAILS UP X3/BED IN LOWEST POSITION FOR SAFETY. CALL LIGHT WITHIN REACH. FREQUENT ROUNDING FOR SAFETY/NEEDS. NAD.
--- NOTE | 2018-11-26 20:30 | General Progress Note ---
Assessment/Plan Problem List: (1) Acute metabolic encephalopathy ICD Codes: G93.41 - Metabolic encephalopathy SNOMED: 20273935, 903384907 (2) Schizophrenia ICD Codes: F20.9 - Schizophrenia, unspecified SNOMED: 94068730 Assessment/Plan zyprexa 2.5mg po tid haldol Im prn provided ro/st haldol dec 25mg IM x 1 time repeat Subjective Neurologic/Psychiatric: Reports: anxiety, depressed, emotional problems Allergies: Coded Allergies: PENICILLINS (Verified Allergy, Intermediate, Itching, 06/25/12) PROPOXYPHENE HCL (Verified Allergy, Intermediate, Itching, 06/25/12) TETRACYCLINE (Verified Allergy, Intermediate, Itching, 06/25/12) PROPOXYPHENE (Verified Allergy, Unknown, 06/25/12) TETRACYCLINES (Unverified Allergy, Unknown, 05/11/17) HYDROCODONE (Verified Adverse Reaction, Intermediate, GI UPSET, 05/05/16) SULFA (SULFONAMIDE ANTIBIOTICS) (Verified Adverse Reaction, Intermediate, GI UPSET, 05/05/16) Subjective angry agitated delusional the pt refusing po meds Objective Last 24 Hour Vital Signs Date Time Temp Pulse Resp B/P (MAP) Pulse Ox O2 Delivery O2 Flow Rate FiO2 11/26/18 09:05 Room Air 11/25/18 21:07 Room Air Intake and Output 11/25/18 11/26/18 19:00 07:00 Intake Total 120 ml Balance 120 ml Intake Oral 120 ml # Voids 1 Height (Feet): 5 Height (Inches): 5.00 Weight (Pounds): 159 General Appearance: alert, confused, agitated, combative Maria D Lofton MD Nov 26, 2018 20:30
[2018-11-26] MEDS: Atorvastatin 20mg tab ORAL SCH (21:23)
--- NOTE | 2018-11-26 21:30 | NUR ---
NURSE NOTES: PATIENT AGREED TO TAKE MEDICATION FOR CHOLESTEROL AND BLOOD THINNER (HEPARIN) ONLY, REFUSED ALL OTHER MEDICATION INCLUDING PO FLAGYL.
[2018-11-27] VITALS: BP 111/58
--- NOTE | 2018-11-27 00:55 | NUR ---
NURSE NOTES: MEDICATED WITH RESTORIL REQUESTED BY PATIENT, STATED "I WANT A SLEEPING PILL", AFTER MEDICATION, PATIENT ORDERED ME OUT OF THE ROOM.
[2018-11-27] MEDS: metroNIDAZOLE 500mg tab ORAL SCH ×3 (06:00→21:02)
[2018-11-27] MEDS: Heparin 5000 units/ml inj SUBQ SCH ×3 (06:00→21:02)
--- NOTE | 2018-11-27 06:20 | NUR ---
NURSE NOTES: NON COMPLIANT ONCE AGAIN, REFUSED AM CARE X2-SAFETY MAINTAINED , NAD.
--- NOTE | 2018-11-27 08:04 | General Progress Note ---
Assessment/Plan Problem List: (1) Dehydration ICD Codes: E86.0 - Dehydration SNOMED: 55391223 (2) Diabetes ICD Codes: E11.9 - Diabetes SNOMED: 28780157 (3) CVA (cerebral vascular accident) ICD Codes: I63.9 - CVA (cerebral vascular accident) SNOMED: 441228727 (4) Colitis ICD Codes: K52.9 - Noninfective gastroenteritis and colitis, unspecified SNOMED: 44032618 Status: stable Assessment/Plan abx advance diet pain rx check labs ?ivf await call back from family regarding ivc filter removal compliance stressed ?psych transfer Subjective ROS Limited/Unobtainable: Yes Constitutional: Reports: malaise, weakness HEENT: Reports: no symptoms Cardiovascular: Reports: no symptoms Respiratory: Reports: no symptoms Gastrointestinal/Abdominal: Reports: no symptoms Genitourinary: Reports: no symptoms Neurologic/Psychiatric: Reports: no symptoms Endocrine: Reports: no symptoms Hematologic/Lymphatic: Reports: no symptoms Allergies: Coded Allergies: PENICILLINS (Verified Allergy, Intermediate, Itching, 06/25/12) PROPOXYPHENE HCL (Verified Allergy, Intermediate, Itching, 06/25/12) TETRACYCLINE (Verified Allergy, Intermediate, Itching, 06/25/12) PROPOXYPHENE (Verified Allergy, Unknown, 06/25/12) TETRACYCLINES (Unverified Allergy, Unknown, 05/11/17) HYDROCODONE (Verified Adverse Reaction, Intermediate, GI UPSET, 05/05/16) SULFA (SULFONAMIDE ANTIBIOTICS) (Verified Adverse Reaction, Intermediate, GI UPSET, 05/05/16) All Systems: reviewed and negative except above Subjective remains agitated and uncooperative with care. refusing vitals. not taking meds not eating per staff Objective Last 24 Hour Vital Signs Date Time Temp Pulse Resp B/P (MAP) Pulse Ox O2 Delivery O2 Flow Rate FiO2 11/27/18 00:00 97.3 83 18 111/58 (75) 98 11/26/18 21:00 Room Air 11/26/18 09:05 Room Air Intake and Output 11/26/18 11/27/18 19:00 07:00 Intake Total 720 ml Balance 720 ml Intake Oral 720 ml # Voids 1 Height (Feet): 5 Height (Inches): 5.00 Weight (Pounds): 159 Objective General Appearance: WD/WN, alert Neck: supple Cardiovascular: regular rhythm Respiratory/Chest: lungs clear, normal breath sounds Abdomen: normal bowel sounds, non tender, soft, no organomegaly Edema: no edema noted Arm (L), no edema noted Arm (R), no edema noted Leg (L), no edema noted Leg (R), no edema noted Pedal (L), no edema noted Pedal (R), no edema noted Generalized Tam Wall MD Nov 27, 2018 08:04
[2018-11-27] MEDS: Multivitamin w/Minerals tab ORAL SCH (09:00)
[2018-11-27] MEDS: Docusate 100mg cap ORAL SCH ×2 (09:00→20:45)
[2018-11-27] MEDS: Ciprofloxacin 500mg tab ORAL SCH ×2 (09:00→20:45)
[2018-11-27] MEDS: OLANZapine 2.5mg tab ORAL SCH ×3 (09:00→17:28)
[2018-11-27] MEDS: Lisinopril 20mg tab ORAL SCH (09:00)
[2018-11-27] MEDS: Milk of Magnesia 30ml Ud ORAL SCH (09:00)
[2018-11-27] MEDS: Aspirin Baby 81mg ORAL SCH (09:00)
--- NOTE | 2018-11-27 11:01 | NUR ---
NURSE NOTES: patient continue to be noncompliant and refusing her meds and refusing to eat. refused patient to draw her labs, attempted to help laboratory tech and patient shown upset and uncooperative. she disrobing and not allowing us to clean her up. patient is compulsive. does not attempt to get out of the bed. Though, kept the bed in the lowest position. siderails are up x3 and call light is within reach. will cont the plan of care.
--- NOTE | 2018-11-27 12:22 | NUR ---
NURSE NOTES: we were able to provide bedbath to the patient. At first, she shown resistance and impulsiveness. able to apply calazime on patient belly for redness. will cont to monitor.
--- NOTE | 2018-11-27 15:21 | NUR ---
NURSE NOTES: Patient is now eating sandwich and drink juice in an upright position. spoke with the granddaughter and patient' daughter earlier and made aware of the current status of the patient. patient appeared to cooperate little by little with care and meal intake. will cot to monitor.
--- NOTE | 2018-11-27 16:16 | Surgery Progress Note ---
Surgery Progress Note Subjective Additional Comments no acute events. stable. Objective Last 24 Hour Vital Signs Date Time Temp Pulse Resp B/P (MAP) Pulse Ox O2 Delivery O2 Flow Rate FiO2 11/27/18 09:00 Room Air 11/27/18 00:00 97.3 83 18 111/58 (75) 98 11/26/18 21:00 Room Air I&O Intake and Output 11/26/18 11/27/18 18:59 06:59 Intake Total 720 ml Balance 720 ml Intake Oral 720 ml # Voids 1 Dressing: other Wound: other Drains: none Cardiovascular: RSR Respiratory: clear Abdomen: soft, flat, non-tender, present bowel sounds Extremities: no cyanosis Plan Problems: (1) Abdominal pain Assessment & Plan: generalized abdominal pain. no n/v/f/c. labs okay exam with discomfort but no peritonitis CT noted with colitis/proctitis KUB noted improving -okay for diet -bowel regimen -transition to oral meds -AM labs -d/c planning -family discussion for IVC filter removal pending -will follow with recs thank you Fabian Hamilton Nov 27, 2018 16:16
[2018-11-27 16:54] VITALS: BP 143/67
--- NOTE | 2018-11-27 18:22 | NUR ---
NURSE NOTES: patient appeared compulsive and unpredictable. She would cry and laugh and cuss to the staff @ the same time. Does not show any signs that she gets out of the bed. Kept bed in the lowest position. siderails are up x3. instructed to use call light for help. will cont to encourage to eat meal and reassure safety. will cont to monitor.
--- NOTE | 2018-11-27 19:19 | NUR ---
HAND-OFF: Report given to Jossy.
--- NOTE | 2018-11-27 19:48 | NUR ---
NURSE NOTES: Received patient in bed. On RA, no SOB, no acute distress. No IV site, MD aware. Offered patient bedtime snack, patient refused. Bed in lowest position, locked, alarms on. Call light in reach.
--- NOTE | 2018-11-27 20:42 | NUR ---
NURSE NOTES: Patient is noncompliant to all PM care. Refused assessment, V/S. Refused to take all PM meds including abx. Tried to explain risk and benefit but patient yelled, "No! get out now. No! No!" Bed in lowest position, locked, alarms on. Call light in reach. Will cont monitor.
[2018-11-27] MEDS: Atorvastatin 20mg tab ORAL SCH (20:47)
--- NOTE | 2018-11-27 22:16 | General Progress Note ---
Assessment/Plan Problem List: (1) Acute metabolic encephalopathy ICD Codes: G93.41 - Metabolic encephalopathy SNOMED: 79013247, 463905621 (2) Schizophrenia ICD Codes: F20.9 - Schizophrenia, unspecified SNOMED: 17887050 Assessment/Plan zyprexa 10mg po tid haldol Im prn provided ro/st Subjective Neurologic/Psychiatric: Reports: anxiety, depressed, emotional problems Allergies: Coded Allergies: PENICILLINS (Verified Allergy, Intermediate, Itching, 06/25/12) PROPOXYPHENE HCL (Verified Allergy, Intermediate, Itching, 06/25/12) TETRACYCLINE (Verified Allergy, Intermediate, Itching, 06/25/12) PROPOXYPHENE (Verified Allergy, Unknown, 06/25/12) TETRACYCLINES (Unverified Allergy, Unknown, 05/11/17) HYDROCODONE (Verified Adverse Reaction, Intermediate, GI UPSET, 05/05/16) SULFA (SULFONAMIDE ANTIBIOTICS) (Verified Adverse Reaction, Intermediate, GI UPSET, 05/05/16) Subjective angry agitated delusional the pt refusing po meds Objective Last 24 Hour Vital Signs Date Time Temp Pulse Resp B/P (MAP) Pulse Ox O2 Delivery O2 Flow Rate FiO2 11/27/18 16:54 98.2 93 21 143/67 (92) 93 11/27/18 09:00 Room Air 11/27/18 00:00 97.3 83 18 111/58 (75) 98 Intake and Output 11/26/18 11/27/18 19:00 07:00 Intake Total 720 ml Balance 720 ml Intake Oral 720 ml # Voids 1 Height (Feet): 5 Height (Inches): 5.00 Weight (Pounds): 159 General Appearance: alert, confused, agitated Maria D Lofton MD Nov 27, 2018 22:16
[2018-11-28 04:00] VITALS: BP 147/57
[2018-11-28] MEDS: metroNIDAZOLE 500mg tab ORAL SCH ×3 (06:00→21:05)
[2018-11-28] MEDS: Heparin 5000 units/ml inj SUBQ SCH ×3 (06:00→21:10)
--- NOTE | 2018-11-28 07:25 | NUR ---
HAND-OFF: Report given to Sandra CHO.
[2018-11-28 08:00] VITALS: BP 136/67
[2018-11-28] MEDS: Milk of Magnesia 30ml Ud ORAL SCH (08:59)
[2018-11-28] MEDS: Multivitamin w/Minerals tab ORAL SCH (09:00)
[2018-11-28] MEDS: OLANZapine 2.5mg tab ORAL SCH ×3 (09:00→17:20)
[2018-11-28] MEDS: Aspirin Baby 81mg ORAL SCH (09:00)
[2018-11-28] MEDS: Lisinopril 20mg tab ORAL SCH (09:01)
[2018-11-28] MEDS: Ciprofloxacin 500mg tab ORAL SCH ×2 (09:01→21:05)
[2018-11-28] MEDS: Docusate 100mg cap ORAL SCH ×2 (09:01→21:05)
--- NOTE | 2018-11-28 10:35 | General Progress Note ---
Assessment/Plan Problem List: (1) Dehydration ICD Codes: E86.0 - Dehydration SNOMED: 22901145 (2) Diabetes ICD Codes: E11.9 - Diabetes SNOMED: 57798067 (3) CVA (cerebral vascular accident) ICD Codes: I63.9 - CVA (cerebral vascular accident) SNOMED: 451880715 (4) Colitis ICD Codes: K52.9 - Noninfective gastroenteritis and colitis, unspecified SNOMED: 26763645 Status: stable, not improved Assessment/Plan abx advance diet pain rx check labs ?ivf await call back from family regarding ivc filter removal compliance stressed ?psych transfer Subjective ROS Limited/Unobtainable: No Constitutional: Reports: malaise, weakness Allergies: Coded Allergies: PENICILLINS (Verified Allergy, Intermediate, Itching, 06/25/12) PROPOXYPHENE HCL (Verified Allergy, Intermediate, Itching, 06/25/12) TETRACYCLINE (Verified Allergy, Intermediate, Itching, 06/25/12) PROPOXYPHENE (Verified Allergy, Unknown, 06/25/12) TETRACYCLINES (Unverified Allergy, Unknown, 05/11/17) HYDROCODONE (Verified Adverse Reaction, Intermediate, GI UPSET, 05/05/16) SULFA (SULFONAMIDE ANTIBIOTICS) (Verified Adverse Reaction, Intermediate, GI UPSET, 05/05/16) Subjective remains agitated and uncooperative with care. refusing vitals. not taking meds not eating per staff Objective Last 24 Hour Vital Signs Date Time Temp Pulse Resp B/P (MAP) Pulse Ox O2 Delivery O2 Flow Rate FiO2 11/28/18 09:01 136/67 11/28/18 09:00 88 136/67 11/28/18 09:00 Room Air 11/28/18 08:00 98.1 88 21 136/67 (90) 96 11/28/18 04:00 98.9 83 18 147/57 (87) 94 11/27/18 21:00 Room Air 11/27/18 16:54 98.2 93 21 143/67 (92) 93 Intake and Output 11/27/18 11/28/18 19:00 07:00 Intake Total 480 ml Balance 480 ml Intake Oral 480 ml # Voids 3 1 Height (Feet): 5 Height (Inches): 5.00 Weight (Pounds): 159 Objective General Appearance: WD/WN, alert Neck: supple Cardiovascular: regular rhythm Respiratory/Chest: lungs clear, normal breath sounds Abdomen: normal bowel sounds, non tender, soft, no organomegaly Edema: no edema noted Arm (L), no edema noted Arm (R), no edema noted Leg (L), no edema noted Leg (R), no edema noted Pedal (L), no edema noted Pedal (R), no edema noted Generalized Tam Wall MD Nov 28, 2018 10:35
--- NOTE | 2018-11-28 11:15 | NUR ---
NURSE NOTES: patient allowed me to take vitals this am and able to give her am sched meds. However, she remains with an impulsive behavior but able to follow instructions. explained the indications. left vm to granddaughter, Yuko (DPOA) for an update. patient is resting comfortably but shown guarded. kept bed in lowest position. siderails are upx3, call light is within reach. will cont to monitor.
[2018-11-28 12:00] VITALS: BP 139/65
--- NOTE | 2018-11-28 15:51 | Surgery Progress Note ---
Surgery Progress Note Subjective Symptoms: improved, pain absent, tolerating diet, BM Objective Last 24 Hour Vital Signs Date Time Temp Pulse Resp B/P (MAP) Pulse Ox O2 Delivery O2 Flow Rate FiO2 11/28/18 12:00 98.6 78 18 139/65 (89) 100 11/28/18 09:01 136/67 11/28/18 09:00 88 136/67 11/28/18 09:00 Room Air 11/28/18 08:00 98.1 88 21 136/67 (90) 96 11/28/18 04:00 98.9 83 18 147/57 (87) 94 11/27/18 21:00 Room Air 11/27/18 16:54 98.2 93 21 143/67 (92) 93 I&O Intake and Output 11/27/18 11/28/18 18:59 06:59 Intake Total 480 ml Balance 480 ml Intake Oral 480 ml # Voids 3 1 Dressing: other Wound: other Drains: other Cardiovascular: RSR Respiratory: clear Abdomen: soft, non-tender, present bowel sounds Extremities: no cyanosis Plan Problems: (1) Abdominal pain Assessment & Plan: generalized abdominal pain. no n/v/f/c. labs okay exam with discomfort but no peritonitis CT noted with colitis/proctitis KUB noted improving -okay for diet -bowel regimen -transition to oral meds -AM labs -d/c planning -family discussion for IVC filter removal pending -will follow with recs thank you Fabian Hamilton Nov 28, 2018 15:51
[2018-11-28 16:00] VITALS: BP 134/39
--- NOTE | 2018-11-28 19:08 | NUR ---
HAND-OFF: Report given to Jossy.
--- NOTE | 2018-11-28 19:30 | NUR ---
NURSE NOTES: Received patient in bed, in calm mood and more cooperative with care. On RA, no SOB, no acute distress, no c/o pain. Still no IV site, MD aware. Bed in lowest position, locked, alarms on. Call light in reach.
[2018-11-28 20:00] VITALS: BP 101/49
--- NOTE | 2018-11-28 20:17 | General Progress Note ---
Assessment/Plan Problem List: (1) Acute metabolic encephalopathy ICD Codes: G93.41 - Metabolic encephalopathy SNOMED: 37989268, 802279338 (2) Schizophrenia ICD Codes: F20.9 - Schizophrenia, unspecified SNOMED: 94302279 Assessment/Plan zyprexa 10mg po bid haldol Im prn provided ro/st Subjective Neurologic/Psychiatric: Reports: anxiety, depressed, emotional problems Allergies: Coded Allergies: PENICILLINS (Verified Allergy, Intermediate, Itching, 06/25/12) PROPOXYPHENE HCL (Verified Allergy, Intermediate, Itching, 06/25/12) TETRACYCLINE (Verified Allergy, Intermediate, Itching, 06/25/12) PROPOXYPHENE (Verified Allergy, Unknown, 06/25/12) TETRACYCLINES (Unverified Allergy, Unknown, 05/11/17) HYDROCODONE (Verified Adverse Reaction, Intermediate, GI UPSET, 05/05/16) SULFA (SULFONAMIDE ANTIBIOTICS) (Verified Adverse Reaction, Intermediate, GI UPSET, 05/05/16) Subjective less agitated delusional the pt was more compliant today Objective Last 24 Hour Vital Signs Date Time Temp Pulse Resp B/P (MAP) Pulse Ox O2 Delivery O2 Flow Rate FiO2 11/28/18 16:00 98.1 85 20 134/39 (70) 97 11/28/18 12:00 98.6 78 18 139/65 (89) 100 11/28/18 09:01 136/67 11/28/18 09:00 88 136/67 11/28/18 09:00 Room Air 11/28/18 08:00 98.1 88 21 136/67 (90) 96 11/28/18 04:00 98.9 83 18 147/57 (87) 94 11/27/18 21:00 Room Air Intake and Output 11/27/18 11/28/18 18:59 06:59 Intake Total 480 ml Balance 480 ml Intake Oral 480 ml # Voids 3 1 Height (Feet): 5 Height (Inches): 5.00 Weight (Pounds): 159 General Appearance: alert, confused, agitated Maria D Lofton MD Nov 28, 2018 20:17
[2018-11-28] MEDS: Atorvastatin 20mg tab ORAL SCH (21:05)
--- NOTE | 2018-11-28 22:00 | NUR ---
NURSE NOTES: Patient was more compliant today, took all PM meds and cooperative with PM care by staffs.
[2018-11-29] VITALS: BP 114/49
--- NOTE | 2018-11-29 02:46 | NUR ---
NURSE NOTES: Received patient in bed, in calm mood and more cooperative with care. On RA, no SOB, no acute distress, no c/o pain. Still no IV site, MD aware. Bed in lowest position, locked, alarms on. Call light in reach. Addendum: 11/29/18 at 0607 by Mary Montano RN DUPLICATE, PLEASE DISCARD THIS MSG
[2018-11-29 04:00] VITALS: BP 115/59
[2018-11-29] MEDS: metroNIDAZOLE 500mg tab ORAL SCH (06:02)
[2018-11-29] MEDS: Heparin 5000 units/ml inj SUBQ SCH (06:03)
--- NOTE | 2018-11-29 07:40 | NUR ---
NURSE NOTES: Received patient on bed, awake. No IV access MD aware. Bed in low and locked position, call light in reach. No signs of respiratory distress or pain. Room board updated, will continue to monitor.
--- NOTE | 2018-11-29 07:51 | NUR ---
HAND-OFF: Report given to Flako ZALDIVAR.
[2018-11-29] MEDS ORDERED: KLONOPIN1 MG ORAL (08:29)
[2018-11-29] MEDS ORDERED: FLAGYL500 MG ORAL (08:29)
[2018-11-29] MEDS ORDERED: CIPROFLOXACIN500 M2 ORAL (08:29)
[2018-11-29] MEDS: Aspirin Baby 81mg ORAL SCH (09:00)
[2018-11-29] MEDS: Multivitamin w/Minerals tab ORAL SCH (09:00)
[2018-11-29] MEDS: Lisinopril 20mg tab ORAL SCH (09:00)
[2018-11-29] MEDS: Docusate 100mg cap ORAL SCH (09:00)
[2018-11-29] MEDS: Milk of Magnesia 30ml Ud ORAL SCH (09:00)
[2018-11-29] MEDS: Ciprofloxacin 500mg tab ORAL SCH (09:00)
--- NOTE | 2018-11-29 09:03 | NUR ---
*-* DISCHARGE PLANNING *-* PATIENT HAS BEEN REFERRED TO: [facility] P:[phone] F: [phone]
--- NOTE | 2018-11-29 09:30 | NUR ---
NURSE NOTES: Patient refused all medications scheduled at 0900 hours and linene change and bath.
--- NOTE | 2018-11-29 09:45 | NUR ---
*-* DISCHARGE PLANNING *-* PATIENT IS DISCHARGED BACK TO: [facility] ROOM# [address]M [address] T:[phone] FOR NURSE TO NURSE REPORT [facility] BE[facility] ARRANGED FOR [facility] FABRICATOR AT [address] [id number] Addendum: 11/29/18 at 0959 by BIRD MASTERSON CM SPOKE TO RASHMI BIGGS MADE HER AWARE HER GRANDMOTHER WAS BEING DISCHARGED BACK TO [facility] BEING PICKED UP AT 113
--- NOTE | 2018-11-29 10:25 | NUR ---
NURSE NOTES: Gave report to licensed nurse Emanuel Yi at [facility].
--- NOTE | 2018-11-29 13:33 | NUR ---
NURSE NOTES: Patient discharged. Id band removed. Personal belongings inventoried and sent with patient. Patient needs met and patient kept comfortable at all times.
--- NOTE | 2018-11-29 21:25 | General Progress Note ---
Assessment/Plan Problem List: (1) Acute metabolic encephalopathy ICD Codes: G93.41 - Metabolic encephalopathy SNOMED: 23821106, 846999588 (2) Schizophrenia ICD Codes: F20.9 - Schizophrenia, unspecified SNOMED: 80764827 Assessment/Plan zyprexa 10mg po bid haldol Im prn provided ro/st Subjective Neurologic/Psychiatric: Reports: anxiety, depressed, emotional problems Allergies: Coded Allergies: PENICILLINS (Verified Allergy, Intermediate, Itching, 06/25/12) PROPOXYPHENE HCL (Verified Allergy, Intermediate, Itching, 06/25/12) TETRACYCLINE (Verified Allergy, Intermediate, Itching, 06/25/12) PROPOXYPHENE (Verified Allergy, Unknown, 06/25/12) TETRACYCLINES (Unverified Allergy, Unknown, 05/11/17) HYDROCODONE (Verified Adverse Reaction, Intermediate, GI UPSET, 05/05/16) SULFA (SULFONAMIDE ANTIBIOTICS) (Verified Adverse Reaction, Intermediate, GI UPSET, 05/05/16) Subjective less agitated delusional non compliant today Objective Last 24 Hour Vital Signs Date Time Temp Pulse Resp B/P (MAP) Pulse Ox O2 Delivery O2 Flow Rate FiO2 11/29/18 09:00 Room Air 11/29/18 04:00 97.7 87 18 115/59 (77) 98 11/29/18 00:00 96.9 64 17 114/49 (70) 95 Intake and Output 11/28/18 11/29/18 18:59 06:59 Intake Total 300 ml 860 ml Output Total 401 ml Balance 300 ml 459 ml Intake Oral 300 ml 860 ml Output Urine Total 400 ml Stool Total 1 ml # Voids 2 2 Height (Feet): 5 Height (Inches): 5.00 Weight (Pounds): 159 Maria D Lofton MD Nov 29, 2018 21:25
--- NOTE | 2018-11-29 23:15 | Discharge Summary ---
DATE OF ADMISSION: 11/20/2018 DATE OF DISCHARGE: 11/29/2018 ADMISSION DIAGNOSES: 1. Sepsis. 2. Colitis. 3. Encephalopathy. 4. Diabetes. 5. History of DVT, status post IVC filter. DISCHARGE DIAGNOSES: 1. Sepsis. 2. Colitis. 3. Encephalopathy. 4. Diabetes. 5. History of DVT, status post IVC filter. HOSPITAL COURSE: The patient was admitted with complaints of diarrhea and abdominal pain. She was diagnosed with proctitis/colitis. Surgical consultation was obtained. There was no surgical intervention recommended. The patient was treated for infectious colitis with antibiotic therapy. She improved clinically. The patient's hospital course was complicated by agitation and combative behavior. Of note, the medications were discussed with the patient's power of base cloth inspector. He noted that the patient has a longstanding psychiatric history, most of her normal medications have been discontinued. I suspect this is because of dose reductions mandated by the Department of Health. She was resumed on medications. On discharge, was still somewhat labile, but she was more cooperative. She will be discharged back to the [facility] facility. All her old psychiatric medications were resumed according to the patient's power of base cloth inspector, had been very stable on these medications. DISCHARGE FOLLOWUP: The patient will be followed up by her PMD at the longterm. DISCHARGE MEDICATIONS: Please see discharge list for discharge medications. DIET: Cardiac diet. ACTIVITY: Ad-tico. Tam Wall M.D. DR: MAGDY JOB#: [id number] CC:
== END 2018-11-29 12:10 | DRG 871 ==
LOC: EDBD 08:55 → EMR 09:29 → 4E 09:45 → EDBEDREQ 09:53 → 4E 11-28 11:35
DX: A41.9 Sepsis, unspecified organism (principal); G93.41 Metabolic encephalopathy; I50.32 Chronic diastolic (congestive) heart failure; K52.9 Noninfective gastroenteritis and colitis, unspecified; F20.9 Schizophrenia, unspecified; Z79.01 Long term (current) use of anticoagulants; Z86.73 Personal history of transient ischemic attack (TIA), and cerebral infarction without residual deficits; E11.9 Type 2 diabetes mellitus without complications; Z86.718 Personal history of other venous thrombosis and embolism; E86.0 Dehydration; R45.1 Restlessness and agitation; Z95.828 Presence of other vascular implants and grafts; Z88.6 Allergy status to analgesic agent; Z88.2 Allergy status to sulfonamides; Z88.8 Allergy status to other drugs, medicaments and biological substances; I11.0 Hypertensive heart disease with heart failure
CPT/HCPCS: 36415; 74018; 74177; 80048; 80053; 81003; 83605; 83690; 85025; 85610; 85651; 85730; 86140; 93925; 93970; 94664; 94760; 96365; 96375; 99285